=== PATIENT | female | born 1955 | race Caucasian/White ===

== ENCOUNTER → 2018-03-31 08:36 | Outpatient (CLI) | payer OTHER, SELFPAY ==
[2018-03-31 09:45] LABS: Hemoglobin A1c 5.8 % (4.2-6.3)
[2018-03-31 10:09] LABS: Alanine Aminotransfer ALT/SGPT 27 U/L (13-56); Anion Gap 5 (5-15); BUN 17 mg/dL (7-18); BUN/Creat Ratio 21.3 RATIO (10-20); Calcium,Total 8.3 mg/dL (8.5-10.1); Chloride 106 mmol/L (98-107); Cholesterol 166 mg/dL (200); EST Glomerular Filtration Rate 77 mL/min (>60); Est Glom Filt Rate - Afr Amer 94 mL/min (>60); Glucose 100 mg/dL (74-106); High Density Lipoprotein 51 mg/dL; Potassium 4.1 mmol/L (3.5-5.1); Sodium Level 138 mmol/L (136-145); Triglycerides 77 mg/dL; Very Low Density Lipoprotein 15 mg/dL (5-40)
== END ==
PROVIDERS: Family Provider Family Medicine; PCP Family Medicine; Referring Provider Family Medicine; Visit Provider Family Medicine
DX: Z00.00 Encounter for general adult medical examination without abnormal findings (principal)
CPT/HCPCS: 36415; 80048; 80061; 83036; 84443; 84460

== ENCOUNTER → 2018-07-09 07:00 | Outpatient (CLI) | payer OTHER, SELFPAY ==
--- NOTE | 2018-07-09 06:59 | BI_ITS ---
MAMMOGRAPHY - BILATERAL SCREENING REASON FOR EXAM: Female, 62 years old. Routine annual screening examination. PERTINENT HISTORY: Mother with breast cancer. Remote right stereotactic breast biopsy. TECHNIQUE: Digital bilateral breast mya (3D mammographic acquisition) in the CC and MLO projections. 2-D mediolateral oblique (MLO) and craniocaudad (CC) views of both breasts were obtained. CAD: Full Field Digital Mammography with Computer Added Detection was performed. COMPARISON: Comparison is made with prior study dated February 11, 2017 and December 23, 2014. FINDINGS: Breast Composition: There are scattered areas of fibroglandular density. There are no dominant masses or suspicious calcifications. No other significant abnormalities are identified. There has been no significant change since the prior study. BI/SCREENING MAMM (CAD), BILAT IMPRESSION: Stable bilateral screening mammogram. Yearly follow-up mammogram recommended. (A) ASSESSMENT CATEGORY: BIRADS Category 1: Negative. A letter regarding these results will be sent to the patient by the facility within 30 days. Approximately 10% of breast cancers are not detected by mammography. A normal mammogram should not delay biopsy of a clinically suspicious abnormality. [id number] Electronically Signed: Lauro Matt MD at 8:39 EST Tel [phone], Service support ,
--- OUTSIDE RECORDS SUMMARY | 2018-09-12 22:23 | XMS RPT_ITS ---
:1955 Author Organization [facility] Care Team Providers Name Role Phone Colby Mazariegos Attending Unavailable Colby Mazariegos Referring Unavailable Colby Mazariegos Primary Care Unavailable Colby Mazariegos Attending Unavailable Colby Mazariegos Referring Unavailable Yair Colby Primary Care Unavailable PROBLEMS PROBLEMS DATE TYPE CONDITION / CODE ATTENDING STATUS SOURCE 03/31/2018 Unknown Z00.00 - Colby Mazariegos Active [place] Encounter for [facility] medical Repository examination without abnormal findings / Z00.00(ICD-10) PROCEDURES PROCEDURES No Procedure Records FoundRESULTS RESULTS SCREENING MAMM (CAD), Observed: 07/09/2018 Status: F Source: [place] BILAT 6:59 AM [facility] REPOSITORY [facility] Imaging Services [address] [place] [address] SCREENING MAMM (CAD), BILAT MR#: [id number] Acct: [id number] Name: SRUTHI MCCORMACK Rep #: [id number] : 1955 F 62 From: Lauro Matt MD PCP: Colby Mazariegos MD Status: REG CLI Study: SCREENING MAMM (CAD), BILAT Date of Exam: 07/09/18 Exam# [id number] Ordering Dr: Colby Mazariegos MD MAMMOGRAPHY - BILATERAL SCREENING REASON FOR EXAM: Female, 62 years old. Routine annual screening examination. PERTINENT HISTORY: Mother with breast cancer. Remote right stereotactic breast biopsy. TECHNIQUE: Digital bilateral breast mya (3D mammographic acquisition) in the CC and MLO projections. 2-D mediolateral oblique (MLO) and craniocaudad (CC) views of both breasts were obtained. CAD: Full Field Digital Mammography with Computer Added Detection was performed. COMPARISON: Comparison is made with prior study dated February 11, 2017 and December 23, 2014. FINDINGS: Breast Composition: There are scattered areas of fibroglandular density. There are no dominant masses or suspicious calcifications. No other significant abnormalities are identified. There has been no significant change since the prior study. BI/SCREENING MAMM (CAD), BILAT IMPRESSION: Stable bilateral screening mammogram. Yearly follow-up mammogram recommended. (A) ASSESSMENT CATEGORY: BIRADS Category 1: Negative. A letter regarding these results will be sent to the patient by the facility within 30 days. Approximately 10% of breast cancers are not detected by mammography. A normal mammogram should not delay biopsy of a clinically suspicious abnormality. [id number] Electronically Signed: Lauro Matt MD at 8:39 EST Tel [phone], Service support , CC: Colby Mazariegos MD Torch Cutter: Signed HEMOGLOBIN A1C Collected: 03/31/2018 Status: F Source: [place] 8:43 AM [facility] REPOSITORY TYPE CODE TESTS RESULT OUT OF RANGE REFERENCE UNITS LAB L501.9985 4.2-6.3 % Normal HGB A1C 5.8 Performed By: #### L501.9985 #### [facility] [address] [place], [place], [address] BASIC METABOLIC Collected: 03/31/2018 Status: F Source: [place] PROFILE ([facility]) 8:43 AM [facility] REPOSITORY TYPE CODE TESTS RESULT OUT OF RANGE REFERENCE UNITS LAB L501.0100 74-106 mg/dL Normal GLU 100 Result Comment: Fasting Glucose result from 100 to 125 mg/dL suggests IMPAIRED HOMEOSTASIS per A.D.A. criteria. Please note revised GLUCOSE reference range effective 2017. LAB L501.1000 7-18 mg/dL Normal BUN 17 LAB L501.1100 0.55-1.02 mg/dL Normal CREAT,SERUM 0.80 Result Comment: The validity of the calculated GFR AND GFRAA in patients over 70 years has not been determined. Clinical correlation is essential. LAB L501.1110 >60 mL/min Normal EST GFR 77 Result Comment: Non- GFR Calc LAB L501.1115 >60 mL/min Normal EST GFR - AA 94 Result Comment: GFR Calc LAB L501.1300 10-20 RATIO High BUN/CRE 21.3 LAB L501.2200 8.5-10.1 mg/dL Low CA 8.3 LAB L501.5300 136-145 mmol/L NA Normal 138 LAB L501.5600 3.5-5.1 mmol/L K Normal 4.1 LAB L501.5900 98-107 mmol/L CL Normal 106 LAB L501.6100 21.0-32.0 mmol/L Normal CO2 27.0 LAB L501.6200 5-15 Normal GAP 5 Performed By: #### L500.2500, L500.4100, L501.4405, L501.9520 #### [facility] [address] [place], [place], [address] LIPID PROFILE Collected: 03/31/2018 Status: F Source: [place] 8:43 AM [facility] REPOSITORY TYPE CODE TESTS RESULT OUT OF RANGE REFERENCE UNITS LAB L501.4900 200 mg/dL Normal CHOL 166 Result Comment: <200 mg/dL Desirable 200-240 mg/dL Borderline >240 mg/dL High Risk LAB L501.5000 mg/dL Normal TRIG 77 Result Comment: The drugs N-Acetylcysteine and Metamizole may falsely depress this assay. Serum Triglycerides Reference Interval Normal <150 mg/dL Borderline high 150 - 199 mg/dL High 200 - 499 mg/dL Very High > or = 500 mg/dL LAB L501.6400 mg/dL Normal HDL 51 Result Comment: The drugs N-Acetylcysteine and Metamizole may falsely depress this assay. Reference Range HDL <40 mg/dL Low HDL Cholesterol HDL >or= 60 mg/dL High HDL Cholesterol LAB L501.6500 0-130 mg/dL Normal LDL 100 LAB L501.6600 5-40 mg/dL Normal VLDL 15 Performed By: #### L500.2500, L500.4100, L501.4405, L501.9520 #### [facility] [address] [facility] [place], [address] ALANINE AMINOTRANSFERAS Collected: 03/31/2018 Status: F Source: [place] ([facility]) 8:43 AM [facility] REPOSITORY TYPE CODE TESTS RESULT OUT OF RANGE REFERENCE UNITS LAB L501.4405 13-56 U/L Normal ALT 27 Performed By: #### L500.2500, L500.4100, L501.4405, L501.9520 #### [facility] [address] [place], [address] THYROID STIM HORMONE Collected: 03/31/2018 Status: F Source: [place] ([facility]) 8:43 AM [facility] REPOSITORY TYPE CODE TESTS RESULT OUT OF RANGE REFERENCE UNITS LAB L501.9520 0.358-3.74 uIU/mL Normal TSH 3.60 Performed By: #### L500.2500, L500.4100, L501.4405, L501.9520 #### [facility] [address] [place], [address] ALLERGIES ALLERGIES DATE TYPE / CODE NAME / CODE REACTION SEVERITY SOURCE 05/26/2014 Drug Sulfa Rash Unknown [facility] Allergy/4160 ([facility] 03401(SNOMED Antibiotics)/ Repository CT) [id number](RX NORM) ENCOUNTERS ENCOUNTERS ADMIT/DISCHARGE ACCOUNT ADMITTING ENCOUNTER LOCATION SOURCE NUMBER CLASS 07/09/2018 [id number] Ambulatory [place] 7 [facility] ing:OPBI Repository 03/31/2018 [id number] [place] [facility] ing:LAB Repository PAYERS PAYERS ENCOUNTER GUARANTOR PAYER SUBSCRIBER SOURCE 07/09/2018 MARIE R Primary SRUTHI J [place] [id number] Insurance:[facility]: [facility] [place]: [id number] [id number] Repository [address]Mau: [phone]) Date:[id number] [phone] () [address] [place] [id number]: 07/09/2018 Secondary NOT GIVENUNK [place] Insurance:SELF PAY [facility] Number: Effective Repository Date:2018-01-24 03/31/2018 MARIE Nelson Primary SRUTHI J [place] [id number] Insurance:[facility]: [facility] Number: [id number] [id number] Repository [address]Zvh: [phone]) Date:[id number] [phone] () [address] [place] [id number]: 03/31/2018 Secondary NOT GIVENUNK [place] Insurance:SELF PAY [facility] Number: Effective Repository Date:2018-03-31
== END ==
PROVIDERS: Family Provider Family Medicine; PCP Family Medicine; Referring Provider Family Medicine; Visit Provider Family Medicine
DX: Z12.31 Encounter for screening mammogram for malignant neoplasm of breast (principal)
CPT/HCPCS: 77063; 77067

== ENCOUNTER → 2018-10-16 15:50 | Outpatient (CLI) | payer OTHER, SELFPAY ==
--- NOTE | 2018-10-16 12:50 | LES_PTH ---
PATIENT: SRUTHI MCCORMACK LOC: [facility] U#:[id number] AGE/SX: 69/F ROOM: RE10/16/[address]: Dr. Burke Culp DDS : 1955 BED: DIS: SPEC #: [id number] RECD: 10/16/18 15:40 STATUS: MIN LUCIANO #: [id number] TERRIE: 10/16/18 12:[address]: Burke Culp DEPT: SURGICAL PATHOLOGY RECD BY: Adama Marcano ENTERED: 10/17/18 08:34 SP TYPE: Lesion OTHR DR: Dr. Colby Mazariegos MD Tissues: Skin of face, NOS Procedures: Surgery Specimen Level IV HEADER OPERATION: Biopsy buccal mucosa PRE-OP DIAGNOSIS: Probable fibroma TISSUE SUBMITTED: Biopsy buccal mucosa MICROSCOPIC DIAGNOSIS Buccal mucosa, biopsy: A piece of squamous mucosa with subepithelial fibrosis, consistent with irritation fibroma. Focal hyperkeratosis, parakeratosis and mild chronic inflammation. SJ:nicanor 10/20/18 MICROSCOPIC DESCRIPTION Slides are reviewed. GROSS DESCRIPTION Received in fixative is one container labeled with the patient's name and designated right cheek. The specimen consists of a round piece of griffith-white mucosa measuring 0.5 x 0.5 x 0.3 cm. The specimen is inked and submitted entirely in one cassette. It will be bisected at the time of embedding. / TONY:nicanor 10/17/18 TC:5 CPT: 90995
== END ==
PROVIDERS: Family Provider Family Medicine; PCP Family Medicine; Referring Provider Dentist Oral and Maxillofacial Surgery; Visit Provider Dentist Oral and Maxillofacial Surgery
DX: R23.4 Changes in skin texture (principal)
CPT/HCPCS: 88305

== ENCOUNTER → 2018-12-03 16:38 | Outpatient (CLI) | payer OTHER, SELFPAY ==
[2018-12-09 15:38] LABS: HPV Reflexed? NOT INDICATED
== END ==
PROVIDERS: Visit Provider Obstetrics & Gynecology
DX: Z12.4 Encounter for screening for malignant neoplasm of cervix (principal)
CPT/HCPCS: 88175; G0145

== ENCOUNTER → 2019-09-24 09:13 | Outpatient (CLI) | payer OTHER, SELFPAY ==
[2019-09-24 10:23] LABS: Cholesterol 200 mg/dL (200); Creatinine, Serum 0.78 mg/dL (0.55-1.02); EST Glomerular Filtration Rate 79 mL/min (>60); Est Glom Filt Rate - Afr Amer 96 mL/min (>60)
[2019-09-24 11:49] LABS: Microalbumin,Random Urine 21.2 mg/L (NO RANGE EST.); Microalbumin:Creatinine Ratio 10.8 mg/g CRE (<30 mg/g CRE)
== END ==
PROVIDERS: PCP Family Medicine; Referring Provider Family Medicine; Visit Provider Family Medicine
DX: I10 Essential (primary) hypertension (principal)
CPT/HCPCS: 36415; 82043; 82465; 82565; 82570

== ENCOUNTER → 2019-10-21 15:32 | Outpatient (CLI) | payer OTHER, SELFPAY ==
--- NOTE | 2019-10-21 | LES_PTH ---
PATIENT: SRUTHI MCCORMACK LOC: [facility] U#:[id number] AGE/SX: 69/F ROOM: RE10/21/[address]: Dr. Colby Mazariegos MD : 1955 BED: DIS: SPEC #: [id number] RECD: 10/21/19 15:16 STATUS: MIN LUCIAON #: [id number] TERRIE: 10/21/19 00:[address]: Colby Mazariegos DEPT: SURGICAL PATHOLOGY RECD BY: Junior Gonzalez Tissues: Skin of leg, NOS Procedures: Surgery Specimen Level IV HEADER OPERATION: Shave biopsy PRE-OP DIAGNOSIS: Irritated, raised growth TISSUE SUBMITTED: Left thigh atypical nevus MICROSCOPIC DIAGNOSIS Left thigh atypical nevus, shave biopsy: Verrucous keratosis with focal features of verruca vulgaris. Negative for malignancy. SJ:nicanor 10/23/19 COMMENT Clinical correlation and appropriate follow up are necessary. Case has been reviewed in consultation with Dr. Saravia who concurs with the above diagnosis. IDC:AM MICROSCOPIC DESCRIPTION Slides are reviewed. GROSS DESCRIPTION Received is one container labeled with the patient's name and not further designated. The specimen consists of a shave biopsy of griffith-white skin measuring 1 x 0.5 x 0.2 cm. The specimen is inked and submitted entirely in one cassette. It will be sectioned at the time of embedding. / SJ:rg 10/22/19 TC:5 CPT: 67167
== END ==
PROVIDERS: PCP Family Medicine; Referring Provider Family Medicine; Visit Provider Family Medicine
DX: L57.0 Actinic keratosis (principal); B07.8 Other viral warts
CPT/HCPCS: 88305

== ENCOUNTER → 2019-10-23 11:02 | Outpatient (CLI) | payer OTHER, SELFPAY ==
--- NOTE | 2019-10-23 11:11 | BI_ITS ---
MAMMOGRAPHY - BILATERAL SCREENING REASON FOR EXAM: Female, 64 years old. Routine annual screening examination. PERTINENT HISTORY: Mother with breast cancer. Remote right stereotactic breast biopsy. TECHNIQUE: Digital bilateral breast machelle (3D mammographic acquisition) in the CC and MLO projections. 2-D mediolateral oblique (MLO) and craniocaudad (CC) views of both breasts were obtained. CAD: Full Field Digital Mammography with Computer Added Detection was performed. COMPARISON: Comparison is made with prior study dated July 09, 2018 and February 11, 2017. FINDINGS: Breast Composition: There are scattered areas of fibroglandular density. There are no dominant masses or suspicious calcifications. No other significant abnormalities are identified. There has been no significant change since the prior study. BI/SCREEN MAMM (CAD) W/MACHELLE BILAT IMPRESSION: Stable bilateral screening mammogram. Yearly follow-up mammogram recommended. (A) ASSESSMENT CATEGORY: BIRADS Category 1: Negative. A letter regarding these results will be sent to the patient by the facility within 30 days. Approximately 10% of breast cancers are not detected by mammography. A normal mammogram should not delay biopsy of a clinically suspicious abnormality. [id number] Electronically Signed: Lauro Matt, at 12:10 EDT , Service support ,
== END ==
PROVIDERS: PCP Family Medicine; Referring Provider Family Medicine; Visit Provider Family Medicine
DX: Z12.31 Encounter for screening mammogram for malignant neoplasm of breast (principal)
CPT/HCPCS: 77063; 77067

== ENCOUNTER → 2021-03-13 09:01 | Outpatient (CLI) | payer MEDICARE, OTHER, SELFPAY | PROVIDERS: PCP Family Medicine; Referring Provider Family Medicine; Visit Provider Family Medicine | DX: U07.1 COVID-19 (principal) | CPT/HCPCS: 87635; U0005; U0003 ==

== ENCOUNTER 2021-03-17 11:26 | Outpatient (CLI) | payer MEDICARE, OTHER, SELFPAY ==
[2021-03-17] MEDS: 0.9% Saline Lock 10 ML Syringe IV (11:50)
[2021-03-17 12:05] VITALS: BP 144/74; PULSE 69; RESP 16; TEMP 36.8; O2SAT 99; BMI 34.9
[2021-03-17 12:35] VITALS: BP 150/64; PULSE 68; RESP 16; TEMP 36.6; O2SAT 100
[2021-03-17 13:35] VITALS: BP 164/65; PULSE 72; RESP 16; TEMP 36.7; O2SAT 100
== END 2021-03-17 13:40 | disposition home or self-care (01) ==
LOC: ICUOUT 11:27 → MS3 11:27
PROVIDERS: PCP Family Medicine; Referring Provider Nurse Practitioner Adult Health; Visit Provider Nurse Practitioner Adult Health
DX: Z23 Encounter for immunization (principal); U07.1 COVID-19
CPT/HCPCS: J7050; M0245; A4216; Q0244

== ENCOUNTER → 2021-03-30 09:09 | Outpatient (CLI) | payer MEDICARE, OTHER, SELFPAY | PROVIDERS: PCP Family Medicine; Referring Provider Family Medicine; Visit Provider Family Medicine | DX: J18.9 Pneumonia, unspecified organism (principal) | CPT/HCPCS: 87015; 87070; 87116; 87205; 87206 ==

== ENCOUNTER → 2021-05-01 12:59 | Outpatient (CLI) | payer MEDICARE, SELFPAY ==
--- NOTE | 2021-05-01 13:02 | BI_ITS ---
MAMMOGRAPHY - BILATERAL SCREENING REASON FOR EXAM: Female, 65 years old. Routine annual screening examination. PERTINENT HISTORY: Mother with breast cancer. Remote right stereotactic breast biopsy. TECHNIQUE: Digital bilateral breast mya (3D mammographic acquisition) in the CC and MLO projections. 2-D mediolateral oblique (MLO) and craniocaudad (CC) views of both breasts were obtained. CAD: Full Field Digital Mammography with Computer Added Detection was performed. COMPARISON: Comparison is made with prior study dated 10/23/2019 and 07/09/2018. FINDINGS: Breast Composition: The breasts are heterogeneously dense, which may obscure small masses. There are no dominant masses or suspicious calcifications. Stable benign-appearing bilateral axillary lymph nodes. No other significant abnormalities are identified. There has been no significant change since the prior study. BI/SCREENING MAMM (CAD), BILAT IMPRESSION: Stable bilateral screening mammogram. Yearly follow-up mammogram recommended. (A) ASSESSMENT CATEGORY: BIRADS Category 2: Benign. A letter regarding these results will be sent to the patient by the facility within 30 days. Approximately 10% of breast cancers are not detected by mammography. A normal mammogram should not delay biopsy of a clinically suspicious abnormality. [id number] Electronically Signed: Lauro Matt MD at 14:09 EST , Service support ,
== END ==
PROVIDERS: PCP Family Medicine; Referring Provider Family Medicine; Visit Provider Family Medicine
DX: Z12.31 Encounter for screening mammogram for malignant neoplasm of breast (principal)
CPT/HCPCS: 77067

== ENCOUNTER → 2021-12-12 | Outpatient (CLI) | payer MEDICARE, OTHER, SELFPAY ==
--- NOTE | 2021-12-12 10:22 | BD_ITS ---
STUDY: DUAL ENERGY X-RAY ABSORPTIOMETRY / DXA REASON FOR EXAM: Female, 66 years old. M810. Patient is postmenopausal. TECHNIQUE: Bone Mineral Density (BMD) measurements of lumbar spine and bilateral hips were obtained. COMPARISON: Comparison is made with prior study dated 02/07/2012. FINDINGS: Lumbar Spine (L1-L4): g/cm2 (0.959) / T-score (-0.8) / Z-score (1.1) Findings are suggestive of normal bone density with a low fracture risk. Left Femur Total: g/cm2 (1.013) / T-score (0.6) / Z-score (1.9) Left Femoral Neck: g/cm2 (0.733) / T-score (-1.0) / Z-score (0.5) Right Femur Total: g/cm2 (1.053) / T-score (0.9) / Z-score (2.2) Right Femoral Neck: g/cm2 (0.750) / T-score (-0.9) / Z-score (0.7) The T-Scores on the most recent prior examination were: Lumbar Spine (L1-L4): There has been worsening of bone density since the previous examination. Left Femur Total: which represents a worsening of 8.2%. Right Femur Total: which represents a worsening of 6.6%. BD/Dexa Bone Density Study IMPRESSION: The patient is considered normal as outlined below according to World Ka[employer] Organization (WHO) criteria with a low fracture risk. There has been worsening of bone density since the previous examination. Reference Information: The T-score is the number of standard deviations above or below the standard which is normal for young adults at their peak bone mineral density. The World Health Organization (WHO) interprets the T-scores as follows: Above -1 Normal bone density Between -1 and -2.5 Osteopenia Equal to / or below -2.5 Osteoporosis As a practical clinical guideline, osteopenia may be graded as follows: Mild -1 through -1.5 Moderate -1.6 through -2.0 Severe -2.1 through -2.4 The Z-score is the number of standard deviations above or below age-matched controls. A Z-score of less than -1.5 would be considered abnormal. References: 1. NIH Osteoporosis and Related Bone Diseases www osteo.org 2. International Society for Clinical Densitometry www iscd.org 3. National Osteoporosis Foundation www nof.org Electronically Signed: Lauro Matt MD at 12:51 EDT ,
== END | disposition home or self-care (01) ==
LOC: OPBD 10:16
PROVIDERS: PCP Family Medicine; Visit Provider Family Medicine
DX: M81.0 Age-related osteoporosis without current pathological fracture (principal)
CPT/HCPCS: 77080

== ENCOUNTER 2022-02-02 12:20 | Emergency (ER) | payer MEDICARE, OTHER, SELFPAY ==
[2022-02-02 12:21] VITALS: BP 100/79; PULSE 77; RESP 17; TEMP 36.8; O2SAT 99; BMI 36.6
--- NOTE | 2022-02-02 12:40 | RAD_ITS ---
HISTORY: FB in left index finger. TECHNIQUE: XR Hand Min 3 Views. COMPARISON: None. FINDINGS: BONES : Degenerative cysts of the carpus. JOINTS: No dislocation. Mild degenerative change. SOFT TISSUES: 1.3 cm long linear metallic foreign body within the second distal phalanx. Punctate metallic foreign body in the cortex of the distal phalanx also noted. Soft tissue swelling of the second finger RAD/Hand Min 3 Views IMPRESSION: 1.3 cm long and punctate metallic foreign bodies in the distal phalanx of the left second finger. Electronically Signed: Giana Pretty MD at 12:53 EDT ,
[2022-02-02] MEDS: Diphth,Pertuss(Acell),Tet Vac 0.5 ML Vial IM (12:46)
[2022-02-02] MEDS: Lidocaine 1% (20 ml mdv) 20 ML Vial INFILT (12:47)
--- NOTE | 2022-02-02 13:45 | EDS_ITS ---
HPI <ALVARO Barksdale - Last Filed: 02/02/22 13:56> History of Present Illness Chief Complaint: Upper Extremity Injury Narrative Narrative: 66-year-old female with history of hypertension presents to the emergency department with a sewing nail stuck into her left index finger. Patient was using a sewing machine, when she put her finger where it was not supposed to be, the sewing needle went in the dorsal aspect of the tip of the finger, coming out of the side. Patient states that the machine stopped, the tip that came out the other end did break off however she still has the base of the nail in her finger. She denies any other injury. Tetanus vaccination is not up-to-date. [facility] <ALVARO Barksdale - Last Filed: 02/02/22 13:56> [facility] Medical History (Updated 02/02/22 @ 13:54 by ALVARO Barksdale) HTN (hypertension) Home Medications amlodipine 5 mg tablet 5 mg PO DAILY 05/26/14 [History Last Taken 06/02/14 07:00] calcium carbonate 600 mg calcium (1,500 mg) tablet (Calcium) 600 mg PO DAILY 11/24/21 [History Last Taken Unknown] cholecalciferol (vitamin D3) 125 mcg (5,000 unit) capsule 125 mcg PO DAILY 11/24/21 [History Last Taken Unknown] multivitamin 1 tab PO DAILY 11/24/21 [History Last Taken Unknown] cephalexin 500 mg capsule 500 mg PO Q6 #12 caps 02/02/22 [Rx Last Taken Unknown] Allergy/AdvReac Type Severity Reaction Status Date / Time Sulfa (Sulfonamide Allergy Rash Verified 02/02/22 12:23 Antibiotics) Social History Smoking Status: Never smoker ROS <ALVARO Barksdale - Last Filed: 02/02/22 13:56> ROS ED ROS Narrative Constitutional: Negative for fever, chills, weight loss, weakness Eyes: Negative for vision loss, vision change, double vision ENT: Negative for any sore throat, ear pain, congestion Cardiovascular: Negative for any chest pain, tightness, palpitations Respiratory: Negative for any cough, sputum production, hemoptysis, dyspnea, dyspnea on exertion, orthopnea Gastrointestinal: Negative for any abdominal pain, nausea, vomiting, diarrhea, constipation, blood in stool, blood in vomit : Negative for any urinary frequency, dysuria, retention, blood in urine Muscle skeletal: Negative for any muscle joint pain, stiffness, myalgias, arthralgias, neck pain, back pain. Positive for left second digit pain Neurological: Negative for any headache, syncope, numbness or tingling, dizziness Skin: Negative for any rashes, lumps, itching, abrasions, lacerations Psychiatric: Negative for any depression, anxiety, stress, suicidal ideation, homicidal ideation Hematologic: Negative for any easy bruising, excessive bruising, easy bleeding Allergies: Negative for any eczema, hives, rash EXAM <ALVARO Barksdale - Last Filed: 02/02/22 13:56> Physical Exam Narrative Exam Narrative: Vital signs reviewed. Extremities: No peripheral edema, no signs of gross trauma or deformity. Active full range of motion of all extremities. Patient is full range of motion of left hand, patient does have a 1 cm laceration to the palmar aspect of the right index finger just above the DIP joint, patient still has the base of the sewing needle on the dorsal aspect above the DIP joint at the base of the nail. Significant pain on palpation. Nailbed is intact. Negative for any neurological focal deficit Neuro: Cranial nerves II through XII intact, no focal neurological deficits. Skin: Clean dry and intact with no rash, purpura, petechiae, vesicles or pustules. Backs/flank: No CVA tenderness, no midline spinal tenderness, no deformity. Psych: Normal mood and affect. No SI, HI or acute psychosis. Const Vital Signs: 02/02/22 12:21 Temperature 98.2 F Temperature Source Temporal Pulse Rate 77 Respiratory Rate 17 Blood Pressure 100/79 Blood Pressure Mean 86 Pulse Ox 99 Oxygen Delivery Method Room Air Positive well nourished and well developed General Appearance ED: well developed MDM <ALVARO Barksdale - Last Filed: 02/02/22 13:56> MDM Radiography Diagnostic Testing: Clinical Impression(s) from Imaging Studies Hand X-Ray 02/02/22 12:40 IMPRESSION: 1.3 cm long and punctate metallic foreign bodies in the distal phalanx of the left second finger. Electronically Signed: Giana Pretty MD at 12:53 EDT , Treatment and Re-Evaluation Narrative: Patient appears well, patient appears nontoxic, vital signs are stable. Patient presents to the emergency department with a sewing needle puncturing the left index finger. Patient did receive x-rays, there is a 1.3 cm long and punctate metallic foreign body in the distal phalanx of the left second finger. Patient's tetanus vaccination was up-to-date this visit. Patient's left index finger was anesthetized, I was able to place 2 simple interrupted sutures to the laceration, this area was aggressively cleansed. I was able to take hemostats and take out the 1.3 cm sewing needle without complication. Patient tolerated well. Patient replaced on a short course of Keflex secondary to the foreign body to the left hand. Patient will have her sutures removed in 10 days. Patient stable for discharge. <Dr. Levi Perez MD - Last Filed: 02/02/22 15:44> [facility] Narrative Medical decision making narrative: I have personally performed a face to face assessment of the patient and have reviewed the PETER Note. I performed a substantive portion of the visit including all aspects of the following. My landry findings include: History is consistent with a needle from a sewing machine going in her left index finger. No other injury. Nothing makes better or worse. Exam is consistent with puncture and slight tear of the skin which probably occurred when she pulled her hand away from this needle that was in the machine. You can see just the tip of it poking out of the skin. No limitation of range of motion. This is all near the nail and not near the joint. Medical Decison Making: X-rays were done that did verify the needle. Finger was anesthetized with digital block. The needle was easily removed. We are not 100% sure if this needle was in the bone or not. Although it came out easily it is also a polished needle that has a taper and would come out of bone easily also. We will place her on a short course of antibiotics. We discussed signs symptoms of infection and keeping this clean. We encouraged to return for wound check if there are any concerns. Procedures <ALVARO Barksdale - Last Filed: 02/02/22 13:56> Lacerations Left index finger laceration: Length: 1 cm Depth: Skin Shape: Linear Prep: Chad-Breann Laceration repair: Irrigated and Lidocaine Irrigated (ml): 200 Suture Information: Ethilon Comment: Sterile gloves, sterile drapes were used. Discharge Plan Triage Chief Complaint: Upper Extremity Injury ED Midlevel Provider: Lamonte Carreno ED Provider: Levi Perez Dx/Rx/DC Orders Clinical Impression: Foreign body in skin of finger of left hand, Laceration of left index finger Instructions: ED Foreign Body, Soft Tissue (Removed), ED Laceration Extremity Prescriptions: New cephalexin 500 mg capsule 500 mg PO Q6 Qty: 12 0RF No Action multivitamin Tablet 1 tab PO DAILY calcium carbonate [Calcium 600] 600 mg calcium (1,500 mg) tablet 600 mg PO DAILY cholecalciferol (vitamin D3) 125 mcg (5,000 unit) capsule 125 mcg PO DAILY amlodipine 5 MG tablet 5 mg PO DAILY Label Comments: HAS NOT BEEN USING DUE TO BP 123/78 Primary Care Provider: Colby Mazariegos Referrals: Colby Mazariegos MD [Primary Care Provider] - Activity Restrictions/Additional Instructions: Please have your sutures removed in 10 days. Keep the area clean and dry. Take 3 days of antibiotics. Your tetanus was up-to-date today Disposition Disposition: Home, Self Care Discharge Date/Time: 02/02/22 14:10
[2022-02-02] MEDS: HYDROcodone Bitartrate/Apap 5/325 Tablet PO (14:04)
[2022-02-02 14:05] VITALS: BP 124/78; PULSE 64; RESP 14; TEMP 37.2; O2SAT 99
== END 2022-02-02 14:10 | disposition home or self-care (01) ==
PROVIDERS: Emergency Provider Emergency Medicine; PCP Family Medicine; Visit Provider Emergency Medicine
DX: S60.451A Superficial foreign body of left index finger, initial encounter (principal); S61.211A Laceration without foreign body of left index finger without damage to nail, initial encounter; I10 Essential (primary) hypertension; Y33.XXXA Other specified events, undetermined intent, initial encounter; Z23 Encounter for immunization
CPT/HCPCS: 12001; 73130; 90471; 90715; 99283; J7030

== ENCOUNTER → 2022-05-10 | Outpatient (CLI) | payer MEDICARE, OTHER, SELFPAY ==
[2022-05-10 08:46] LABS: Absolute Lymphocyte Count 2.12 X10^3/uL (0.83-4.51); Absolute Neutrophil Count 13.7 X10^3/uL (2.0-7.7); Basophil# 0.04 X10^3/uL; Basophil% 0.2 % (0-1); Eosinophil# 0.21 X10^3/uL; Eosinophils% 1.2 % (0-5); Hematocrit 37.7 % (37-47); Hemoglobin 12.7 g/dL (12.0-15.0); Lymphocyte # 2.12 X10^3/ul (0.83-4.51); Lymphocyte % 12.3 % (19-41); Mean Corp Hgb Conc 33.7 g/dL (32-36); Mean Corpuscular Hgb 30.6 pg (27.0-32.0); Mean Corpuscular Volume 90.8 fL (81-99); Mean Platelet Vol. 10.1 fl (6.2-12.0); Monocyte# 1.04 X10^3/uL; Monocyte% 6.1 % (0-10); NRBC Flagged by Analyzer 0 % (0-5); Neutrophil # 13.67 X10^3/uL (2.7-7.7); Neutrophil % 79.7 % (47-70); Platelet Count 308 K/mm3 (150-450); RBC Distribution Width CV 13.3 % (11.6-14.6); Red Blood Count 4.15 M/mm3 (4.2-5.4); White Blood Count 17.2 K/mm3 (4.4-11.0)
[2022-05-10 09:07] LABS: Microalbumin,Random Urine 6.4 mg/L (NO RANGE EST.); Microalbumin:Creatinine Ratio 3.6 mg/g CRE (<30 mg/g CRE)
[2022-05-10 09:35] LABS: ALB/GLOB Ratio 0.7 RATIO (0.9-2.4); AST(SGOT) 16 U/L (15-37); Alanine Aminotransfer ALT/SGPT 30 U/L (13-56); Albumin, Serum 2.8 g/dL (3.2-5.0); Alkaline Phosphatase 75 U/L (45-117); Anion Gap 6 (5-15); BUN 10 mg/dL (7-18); BUN/Creat Ratio 14.6 RATIO (10-20); Calcium,Total 8.6 mg/dL (8.5-10.1); Chloride 102 mmol/L (98-107); Creatinine, Serum 0.68 mg/dL (0.55-1.02); EST Glomerular Filtration Rate 91 mL/min (>60); Est Glom Filt Rate - Afr Amer 111 mL/min (>60); Globulin 3.8 g/dL (2.2-4.2); Glucose 112 mg/dL (74-106); Potassium 4.2 mmol/L (3.5-5.1); Protein, Total 6.6 g/dL (6.4-8.2); Sodium Level 137 mmol/L (136-145); Thyroid Stim Hormone (TSH) 4.71 uIU/mL (0.358-3.74)
== END | disposition home or self-care (01) ==
LOC: LAB 08:14
PROVIDERS: PCP Family Medicine; Referring Provider Family Medicine; Visit Provider Family Medicine
DX: I10 Essential (primary) hypertension (principal); R68.3 Clubbing of fingers
CPT/HCPCS: 36415; 80053; 82043; 82570; 84443; 85025

== ENCOUNTER → 2022-08-10 | Outpatient (CLI) | payer MEDICARE, OTHER, SELFPAY ==
[2022-08-10 09:42] LABS: Absolute Lymphocyte Count 2.09 X10^3/uL (0.83-4.51); Absolute Neutrophil Count 3.9 X10^3/uL (2.0-7.7); Basophil# 0.05 X10^3/uL; Basophil% 0.7 % (0-1); Eosinophil# 0.16 X10^3/uL; Eosinophils% 2.3 % (0-5); Hematocrit 38.8 % (37-47); Hemoglobin 13.3 g/dL (12.0-15.0); Lymphocyte # 2.09 X10^3/ul (0.83-4.51); Lymphocyte % 30.5 % (19-41); Mean Corp Hgb Conc 34.3 g/dL (32-36); Mean Corpuscular Hgb 30.5 pg (27.0-32.0); Mean Platelet Vol. 11.8 fl (6.2-12.0); Monocyte# 0.63 X10^3/uL; Monocyte% 9.2 % (0-10); NRBC Flagged by Analyzer 0 % (0-5); Platelet Count 259 K/mm3 (150-450); RBC Distribution Width CV 12.6 % (11.6-14.6); RBC Distribution Width SD 41.4 fl (35.1-43.9); Red Blood Count 4.36 M/mm3 (4.2-5.4); White Blood Count 6.9 K/mm3 (4.4-11.0)
[2022-08-10 10:01] LABS: Microalbumin,Random Urine 29.1 mg/L (NO RANGE EST.); Microalbumin:Creatinine Ratio 16.5 mg/g CRE (<30 mg/g CRE)
[2022-08-10 10:07] LABS: Prothrombin Time (Protime)PT. 13.2 SECONDS (11.7-14.9)
[2022-08-10 10:08] LABS: Vitamin D,25 Hydroxy 48.6 ng/mL
[2022-08-10 10:24] LABS: ALB/GLOB Ratio 0.9 RATIO (0.9-2.4); AST(SGOT) 20 U/L (15-37); Alanine Aminotransfer ALT/SGPT 24 U/L (13-56); Albumin, Serum 3.5 g/dL (3.2-5.0); Alkaline Phosphatase 85 U/L (45-117); Anion Gap 7 (5-15); BUN 12 mg/dL (7-18); BUN/Creat Ratio 16.6 RATIO (10-20); CRP 7.89 mg/L (0.0-3.0); Calcium,Total 9.1 mg/dL (8.5-10.1); Chloride 107 mmol/L (98-107); Creatinine, Serum 0.72 mg/dL (0.55-1.02); EST Glomerular Filtration Rate 86 mL/min (>60); Est Glom Filt Rate - Afr Amer 103 mL/min (>60); Free T3 2.7 pg/mL (2.18-3.98); GGTP 31 U/L (5-55); Globulin 3.9 g/dL (2.2-4.2); Glucose 104 mg/dL (74-106); Potassium 3.8 mmol/L (3.5-5.1); Protein, Total 7.4 g/dL (6.4-8.2); Sodium Level 140 mmol/L (136-145); Thyroid Stim Hormone (TSH) 4.46 uIU/mL (0.358-3.74)
== END | disposition home or self-care (01) ==
PROVIDERS: PCP Family Medicine; Referring Provider Family Medicine; Visit Provider Family Medicine
DX: I10 Essential (primary) hypertension (principal); R77.0 Abnormality of albumin; R79.89 Other specified abnormal findings of blood chemistry; M81.0 Age-related osteoporosis without current pathological fracture; J20.9 Acute bronchitis, unspecified
CPT/HCPCS: 80053; 82043; 82306; 82570; 82977; 84439; 84443; 84481; 85025; 85610; 86140

== ENCOUNTER → 2022-08-21 | Outpatient (CLI) | payer MEDICARE, OTHER, SELFPAY ==
--- NOTE | 2022-08-21 12:00 | BI_ITS ---
MAMMOGRAPHY - BILATERAL SCREENING REASON FOR EXAM: Female, 67 years old. Routine annual screening examination. PERTINENT HISTORY: Mother with breast cancer. Prior right stereotactic breast biopsy. TECHNIQUE: Digital bilateral breast machelle (3D mammographic acquisition) in the CC and MLO projections. 2-D mediolateral oblique (MLO) and craniocaudad (CC) views of both breasts were obtained. CAD: Full Field Digital Mammography with Computer Added Detection was performed. COMPARISON: Comparison is made with prior study dated 05/01/2021 and 10/23/2019. FINDINGS: Breast Composition: The breasts are heterogeneously dense, which may obscure small masses. There are no dominant masses or suspicious calcifications. No other significant abnormalities are identified. There has been no significant change since the prior study. BI/SCRN MAMM (CAD)W/MACHELLE BILAT IMPRESSION: Stable bilateral screening mammogram. Yearly follow-up mammogram recommended. (A) ASSESSMENT CATEGORY: BIRADS Category 1: Negative. A letter regarding these results will be sent to the patient by the facility within 30 days. Approximately 10% of breast cancers are not detected by mammography. A normal mammogram should not delay biopsy of a clinically suspicious abnormality. [id number] Electronically Signed: Lauro Matt MD at 14:05 EST ,
== END | disposition home or self-care (01) ==
LOC: OPBI 11:59
PROVIDERS: PCP Family Medicine; Visit Provider Family Medicine
DX: Z12.31 Encounter for screening mammogram for malignant neoplasm of breast (principal)
CPT/HCPCS: 77063; 77067

== ENCOUNTER → 2023-01-31 | Outpatient (CLI) | payer MEDICARE, OTHER, SELFPAY ==
[2023-01-31 08:23] LABS: Absolute Lymphocyte Count 2.07 X10^3/uL (0.83-4.51); Absolute Neutrophil Count 2.7 X10^3/uL (2.0-7.7); Basophil# 0.03 X10^3/uL; Basophil% 0.5 % (0-1); Eosinophil# 0.21 X10^3/uL; Eosinophils% 3.7 % (0-5); Hematocrit 42.3 % (37-47); Hemoglobin 13.7 g/dL (12.0-15.0); Lymphocyte # 2.07 X10^3/ul (0.83-4.51); Lymphocyte % 36.9 % (19-41); Mean Corp Hgb Conc 32.4 g/dL (32-36); Mean Corpuscular Hgb 29.5 pg (27.0-32.0); Monocyte# 0.56 X10^3/uL; NRBC Flagged by Analyzer 0 % (0-5); Neutrophil # 2.72 X10^3/uL (2.7-7.7); Neutrophil % 48.5 % (47-70); Platelet Count 257 K/mm3 (150-450); RBC Distribution Width CV 12.8 % (11.6-14.6); RBC Distribution Width SD 42.3 fl (35.1-43.9); Red Blood Count 4.65 M/mm3 (4.2-5.4); White Blood Count 5.6 K/mm3 (4.4-11.0)
[2023-01-31 09:05] LABS: ALB/GLOB Ratio 0.8 RATIO (0.9-2.4); AST(SGOT) 17 U/L (15-37); Alanine Aminotransfer ALT/SGPT 28 U/L (13-56); Albumin, Serum 3.3 g/dL (3.2-5.0); Alkaline Phosphatase 85 U/L (45-117); Anion Gap 4 (5-15); BUN 10 mg/dL (7-18); BUN/Creat Ratio 11.3 RATIO (10-20); Calcium,Total 8.6 mg/dL (8.5-10.1); Chloride 107 mmol/L (98-107); Cholesterol 175 mg/dL (200); Creatinine, Serum 0.88 mg/dL (0.55-1.02); EST Glomerular Filtration Rate 68 mL/min (>60); Est Glom Filt Rate - Afr Amer 82 mL/min (>60); Free T3 2.5 pg/mL (2.18-3.98); Globulin 3.9 g/dL (2.2-4.2); Glucose 106 mg/dL (74-106); High Density Lipoprotein 62 mg/dL; Potassium 4.3 mmol/L (3.5-5.1); Protein, Total 7.2 g/dL (6.4-8.2); Sodium Level 139 mmol/L (136-145); T4 Free Direct 0.93 ng/dL (0.76-1.46); Thyroid Stim Hormone (TSH) 5.47 uIU/mL (0.358-3.74); Triglycerides 85 mg/dL; Very Low Density Lipoprotein 17 mg/dL (5-40)
== END | disposition home or self-care (01) ==
PROVIDERS: PCP Family Medicine; Referring Provider Family Medicine; Visit Provider Family Medicine
DX: I10 Essential (primary) hypertension (principal); R79.89 Other specified abnormal findings of blood chemistry; M81.0 Age-related osteoporosis without current pathological fracture
CPT/HCPCS: 36415; 80053; 80061; 84439; 84443; 84481; 85025

== ENCOUNTER → 2023-05-29 | Outpatient (CLI) | payer MEDICARE, OTHER, SELFPAY ==
--- NOTE | 2023-05-29 10:48 | RAD_ITS ---
INDICATION: LEG PAIN EXAMINATION/TECHNIQUE: X-RAY - XR Hip Unilateral with Pelvis when performed; 3 Views COMPARISON: FINDINGS: PELVIC BONES: No displaced fracture, destructive or sclerotic lesions. Note that overlapping bowel shadows may however obscure fine detail. Sacroiliac joints are unremarkable. No widening of the pubic symphysis. HIPS: The articular structures are unremarkable. No displaced fracture seen in this frontal view. SOFT TISSUES: No soft tissue swelling or gas. RAD/HIP, UNI W/ Pelvis 2-3 Views IMPRESSION: No evidence of displaced pelvic or hip fracture. Electronically Signed: Zackary Ro DO at 17:37 EST Reading Location ID and State: [facility] / [place] Tel [phone], Service support ,
--- NOTE | 2023-05-29 10:48 | RAD_ITS ---
STUDY: X-RAY - sacroiliac joints REASON FOR EXAM: Female, 67 years old. left leg pain TECHNIQUE: 3 view(s) of the sacroiliac joints. COMPARISON: FINDINGS: Normal alignment of the sacroiliac joints. No acute bony injury . The soft tissue structures are unremarkable. RAD/S-I Jts 3 or More Views IMPRESSION: Normal x-ray examination of the sacroiliac joints. Electronically Signed: Zackary Ro DO at 18:27 EST ,
[2023-05-29 12:34] LABS: Microalbumin,Random Urine 19.9 mg/L (NO RANGE EST.); Microalbumin:Creatinine Ratio 4.9 mg/g CRE (<30 mg/g CRE)
[2023-05-29 13:11] LABS: Anion Gap 7 (5-15); BUN 14 mg/dL (7-18); BUN/Creat Ratio 16.2 RATIO (10-20); Calcium,Total 8.7 mg/dL (8.5-10.1); Chloride 109 mmol/L (98-107); Creatinine, Serum 0.86 mg/dL (0.55-1.02); EST Glomerular Filtration Rate 69 mL/min (>60); Est Glom Filt Rate - Afr Amer 84 mL/min (>60); Free T3 2.5 pg/mL (2.18-3.98); Glucose 111 mg/dL (74-106); Potassium 3.6 mmol/L (3.5-5.1); Sodium Level 139 mmol/L (136-145); Thyroid Stim Hormone (TSH) 2.84 uIU/mL (0.358-3.74)
== END | disposition home or self-care (01) ==
LOC: MTLAB 10:46
PROVIDERS: PCP Family Medicine; Referring Provider Family Medicine; Visit Provider Family Medicine
DX: M79.605 Pain in left leg (principal); E03.8 Other specified hypothyroidism; I10 Essential (primary) hypertension
CPT/HCPCS: 36415; 72202; 73502; 80048; 82043; 82570; 84439; 84443; 84481

== ENCOUNTER 2023-07-04 11:29 | Emergency (ER) | payer MEDICARE, OTHER, SELFPAY ==
[2023-07-04 11:31] VITALS: BP 95/48; PULSE 71; RESP 16; TEMP 36.1; O2SAT 96; BMI 36.2
--- NOTE | 2023-07-04 13:13 | EKG12_ITS ---
Test Reason : CP Blood Pressure : / mmHG Vent. Rate : 064 BPM Atrial Rate : 064 BPM P-R Int : 174 ms QRS Dur : 082 ms QT Int : 406 ms P-R-T Axes : 046 037 063 degrees QTc Int : 418 ms Normal sinus rhythm Normal ECG Confirmed by JORDIN YUEN, BRIDGETTE ([id number]), multimedia editor JALEN TEJADA ([id number]) on 07/05/2023 7:21:19 AM Referred By: Confirmed By:BRIDGETTE BRENNER MD
--- NOTE | 2023-07-04 13:39 | RAD_ITS ---
STUDY: X-RAY CHEST REASON FOR EXAM: Female, 67 years old. Chest pain TECHNIQUE: Single AP portable view of the chest. COMPARISON: None. FINDINGS: Scattered calcified granulomas. No acute abnormality is seen. There is no demonstrated pleural abnormality. Normal size heart. Normal mediastinum and damien. Normal visualized pulmonary arteries. There is atherosclerotic tortuosity of the aortic arch and descending thoracic aorta. There are diffuse degenerative changes of the visualized thoracic spine. Normal visualized ribs, clavicles, and shoulders. There is no demonstrated abnormality of the visualized soft tissue structures of the upper abdomen. RAD/Chest 1 View (Portable) IMPRESSION: Calcified granulomas. No acute abnormality is seen. Electronically Signed: Lauro Matt MD at 13:49 EST ,
[2023-07-04 13:49] LABS: Absolute Lymphocyte Count 0.87 X10^3/uL (0.83-4.51); Absolute Neutrophil Count 4.8 X10^3/uL (2.0-7.7); Basophil# 0.03 X10^3/uL; Basophil% 0.5 % (0-1); Eosinophil# 0.08 X10^3/uL; Eosinophils% 1.2 % (0-5); Hematocrit 39.8 % (37-47); Hemoglobin 13.5 g/dL (12.0-15.0); Lymphocyte # 0.87 X10^3/ul (0.83-4.51); Lymphocyte % 13.3 % (19-41); Mean Corp Hgb Conc 33.9 g/dL (32-36); Mean Corpuscular Hgb 29.7 pg (27.0-32.0); Mean Corpuscular Volume 87.5 fL (81-99); Mean Platelet Vol. 10.8 fl (6.2-12.0); Monocyte% 12.2 % (0-10); NRBC Flagged by Analyzer 0 % (0-5); Neutrophil # 4.76 X10^3/uL (2.7-7.7); Neutrophil % 72.5 % (47-70); Platelet Count 235 K/mm3 (150-450); RBC Distribution Width CV 12.5 % (11.6-14.6); RBC Distribution Width SD 39.9 fl (35.1-43.9); Red Blood Count 4.55 M/mm3 (4.2-5.4); White Blood Count 6.6 K/mm3 (4.4-11.0)
[2023-07-04 14:02] LABS: Anion Gap 10 (5-15); BUN 13 mg/dL (7-18); BUN/Creat Ratio 16.9 RATIO (10-20); Calcium,Total 9.3 mg/dL (8.5-10.1); Chloride 101 mmol/L (98-107); Creatinine, Serum 0.77 mg/dL (0.55-1.02); EST Glomerular Filtration Rate 80 mL/min (>60); Est Glom Filt Rate - Afr Amer 96 mL/min (>60); Estimated Creatinine Clearance 68.42 ml/min; Glucose 103 mg/dL (74-106); Potassium 3.6 mmol/L (3.5-5.1); Sodium Level 134 mmol/L (136-145); Troponin-I HS (w/2H Reflex) 7 pg/mL (3.0-54.0)
[2023-07-04 14:15] VITALS: BP 155/71; PULSE 69; RESP 18; O2SAT 99
--- OUTSIDE RECORDS SUMMARY | 2023-07-04 14:25 | XMS RPT_ITS | CCD ---
Author Name Unknown Address [address] [place] [address] Organization [facility] Care Team Providers [address] Office Assistant Name Role Phone Alyson López Unavailable [phone] Allergies Allergy Classification Reported Allergen(s) Allergy Type Date of Onset Reaction(s) Facility (1 source) Sulfonamides (Antibiotic) drug allergy 4 [facility] Work Phone: Medications Completed/Discontinued Medications Medication Drug Class(es) Dates Sig (Normalized) Sig (Original) amLODIPine 5 mg oral tablet (1 source) Dihydropyridine Calcium Channel Cris Start: 02-22-2017 NORVASC 5 MG TABS AMLODIPINE BESYLATE [id number] Alyson López calcium (1 source) Phosphate Binder, Calcium Start: 02-22-2017 CALCIUM 500 + D TABS CALCIUM CARBONATE-VITAMIN D TABS [id number] Alyson López coenzyme q10 100 mg oral wafer (1 source) Start: 02-22-2017 COQ10 100 MG CAPS COENZYME Q10 [id number] Alyson López Problems Active Problems Problem Classification Problem Date Documented Date Episodic/Chronic Osteoarthritis (1 source) Osteoarthritis of knee; Translations: [Osteoarthritis of knee, unspecified] Onset: 02-22-2017 02-22-2017 Chronic Past or Other Problems Problem Classification Problem Date Documented Da te Episodic/Chronic Joint disorders and dislocations; trauma-related (1 source) Tear of medial meniscus of knee; Translations: [Other tear of medial meniscus, current injury, right knee] Onset: 05-04-2014 05-04-2014 Episodic Other non-traumatic joint disorders (2 sources) Knee joint effusion; Translations: [Knee pain] Onset: 05-04-2014 05-04-2014 Episodic Results Test Name Value Interpretation Reference Range Facil ity Vital Signs Date Time Vital Sign Value Performing Clinician Facility 05-18-2014 08:20-0500 BMI (Body Mass Index) 32.06 kg/m2 [facility] Work Phone: 05-18-2014 08:20-0500 Weight 82.1 kg [facility] Work Phone: 05-04-2014 09:49-0500 BP Diastolic 80 mm[Hg] [facility] Work Phone: 05-04-2014 09:49-0500 BP Systolic 125 mm[Hg] [facility] Work Phone: 05-04-2014 09:49-0500 Height 160.02 cm [facility] Work Phone: 05-04-2014 09:49-0500 Pulse (Heart Rate) 70 /min [facility] Work Phone: Procedures Date Procedure Procedure Detail Performing Clinician Start: 05-04-2014 End: 05-26-2014 *CBC with Differential Alyson aguirre Work Phone: Start: 05-04-2014 End: 05-04-2014 Drain/inject, joint/bursa Alyson huffman Work Phone: Plan of Treatment Date Care Activity Detail Author Start: 02-22-2017 End: 02-22-2017 Appointment Appointment [facility] Work Phone: Start: 02-22-2017 End: 02-22-2017 X-ray exam, knee, 4 or more X-Ray, Knee [facility] Work Phone: Start: 08-24-2014 End: 08-24-2014 X-ray exam, knee, 4 or more X-Ray, Knee [facility] Work Phone: Start: 05-04-2014 End: 05-26-2014 *CBC with Differential *CBC with Differential [facility] Work Phone: Start: 05-04-2014 End: 05-04-2014 Bacteria identified in Body fluid by Culture *CUBF- Culture, Body Fluid [facility] Work Phone: Start: 05-04-2014 End: 05-04-2014 Crystals [type] in Body fluid by Light microscopy *DAV - Crystals, Body Fluid [facility] Work Phone: Start: 05-04-2014 End: 05-04-2014 Glucose *GLUBF - Glucose, Body Fluid [facility] Work Phone: Start: 05-04-2014 End: 05-04-2014 Microscopic observation *GS - Gram Stain [facility] Work Phone: Start: 05-04-2014 End: 05-04-2014 Mri jnt of lwr extre w/o dye MRI Joint Lower Extremity [facility] Work Phone: Start: 05-04-2014 End: 05-04-2014 Protein in fluid *PROBF - Protein, Body Fluid [facility] Work Phone: Start: 05-04-2014 End: 05-04-2014 X-ray exam, knee, 4 or more X-Ray, Knee [facility] Work Phone: Additional Source Comments FOR RECORDS PERTAINING TO PATIENTS WHO ARE OR HAVE BEEN ENROLLED IN A CHEMICAL DEPENDENCY/SUBSTANCEABUSE PROGRAM, SOME INFORMATION MAY BE OMITTED. This clinical summary was aggregated from multiple sources. Caution should be exercised in using it in the provision of clinical care. This summary normalizes information from multiple sources, and as a consequence, information in this document may materially change the coding, format and clinical context of patient data. In addition, data may be omitted in some cases. CLINICAL DECISIONS SHOULD BE BASED ON THE PRIMARY CLINICAL RECORDS. [employer] provides no warranty or guarantee of the accuracy or completeness of information in this document.
--- NOTE | 2023-07-04 14:45 | ED.VIS.CHEST ---
HPI History of Present Illness Chief Complaint: Chest Pain Detail of Chief Complaint: Sternal chest discomfort after drinking soda Informant: patient Onset/Context/Timing Onset: Hours Activity at onset: sudden Timing: Intermittent Quality: Positive for Pressure (Ball-like sensation mid sternum) Location: Substernal Current Severity: Gone (Resolved after burping) Maximum Severity: Moderate Worsened By: - (After drinking carbonated beverage) Relieved By: - (Belching) Associated Symptoms: Negative for Nausea, Vomiting, Diaphoresis, Dyspnea, Cough, Fever, Lightheadedness, Acid Reflux or Palpitations Narrative Narrative: Patient is a 67-year-old woman with history of hypertension who presents with midsternal pressure bubble sensation. This occurred at rest. Patient states in route she belched and the pain resolved. There is no radiation. There is no associated symptoms. Furthermore, there was no radiation of the discomfort. Patient denies history of GERD or hiatal hernia. She is status postcholecystectomy. She denies intolerance to any foods. She denies black or maroon-colored stool. She has no infectious symptoms. She presently has no pain. She has not had any recent viral-like symptoms. She specifically denied vomiting or diarrhea. Prior Similar Symptoms: No Recent Illness/Hospitalization: No CVD Risk Factors: Positive for Hypertension; Negative for Diabetes, Hypercholesterolemia, Family History 1' </=55 or Smoking PE Risk Factors: Negative for Recent Travel/Surgery, Recent Immobilization, Prior DVT or PE, Cancer or OCP + Smoking + >/=35 TAD Risk Factors: Positive for Hypertension; Negative for Marfan's Syndrome or Family History [facility] Medical History HTN (hypertension) Home Medications amlodipine 5 mg tablet 5 mg PO DAILY 05/26/14 [History Last Taken 06/02/14 07:00] calcium carbonate 600 mg calcium (1,500 mg) tablet (Calcium) 600 mg PO DAILY 11/24/21 [History Last Taken Unknown] cholecalciferol (vitamin D3) 125 mcg (5,000 unit) capsule 125 mcg PO DAILY 11/24/21 [History Last Taken Unknown] multivitamin 1 tab PO DAILY 11/24/21 [History Last Taken Unknown] cephalexin 500 mg capsule 500 mg PO Q6 #12 caps 02/02/22 [Rx Last Taken Unknown] Allergy/AdvReac Type Severity Reaction Status Date / Time Sulfa (Sulfonamide Allergy Rash Verified 07/04/23 11:34 Antibiotics) Social History (Updated 07/04/23 @ 14:[address] Troy Botello MD) household members: spouse and family Smoking Status: Never smoker ROS ROS ED Constitutional Constitutional ED: Denies chills, fever(s) or subjective Eyes Eyes: Reports none ENT ENT ED: Denies rhinorrhea or sore throat Cardiovascular Cardiovascular: Reports as per HPI; Denies orthopnea or paroxysmal nocturnal dyspnea Respiratory/Chest Respiratory/Chest: Denies cough, dyspnea, dyspnea on exertion, orthopnea or paroxysmal nocturnal dyspnea Gastrointestinal Gastrointestinal: Denies abdominal pain, diarrhea or vomiting Musculoskeletal Musculoskeletal: Denies arthralgias, back pain, myalgias or neck pain Integumentary Denies rash Neurologic Neurologic: Denies weakness Hematologic/Lymphatic Hematologic/Lymphatic: Denies easy bleeding or easy bruising EXAM Physical Exam Narrative Exam Narrative: Blood pressure reading was initially low. She was not tachycardic, however. Const Vital Signs: 07/04/23 11:31 07/04/23 11:31 07/04/23 14:15 Temperature 97.0 F L Temperature Source Temporal Pulse Rate 71 Respiratory Rate 16 Blood Pressure 95/48 L Blood Pressure Mean 63 Pulse Ox 96 Oxygen Delivery Method Room Air Room Air 07/04/23 14:15 Temperature Temperature Source Pulse Rate 69 Respiratory Rate 18 Blood Pressure 155/71 H Blood Pressure Mean 99 Pulse Ox 99 Oxygen Delivery Method Positive well nourished, well developed and obese General Appearance ED: well developed and NAD; Negative for pallor Nutritional Appearance: obese HEENT Reports moist mucous membranes normocephalic and atraumatic Eyes PERRL and EOMs intact bilaterally General Eye ED: Negative for pale conjunctiva or scleral icterus Chest Wall inspection of chest normal and palpation of chest normal Resp normal respiratory effort and clear to auscultation bilaterally Cardio regular rate, regular rhythm, S1 normal heart sound, S2 normal heart sound and no murmurs GI normal to inspection, nondistended, normoactive bowel sounds, soft to palpation, non-tender, non-distended and no masses; Negative for hepatosplenomegaly Back/Spine Back/Spine Narrative: Flexion of the back is normal. There is no tenderness to palpation. Extremity normal to inspection Extremity Narrative: There is no asymmetry, swelling, discoloration, leg vein distention, palpable cords or tenderness along the distribution of the deep venous system. Neuro oriented x3 and CN's II-XII intact bilaterally Sensorium / Orientation: awake and alert Psych mental status grossly normal Skin no rashes or lesions noted and no wounds General Skin Exam: Negative for jaundice or pallor Heart Score History: Slightly/Non-Suspicious ECG: Normal Age: >/= 65 years Risk Factors: 1 or 2 Risk Factors Troponin: </= Normal Limit Score: 3 MDM MDM MDM Narrative Medical decision making narrative: With atypical chest pain. Suspect this is GI in etiology. EKG and blood work was initiated by nurse per nurse protocol. Lab Data Attestation: I reviewed the patient's lab results. Lab results narrative: BC is normal. BMP is normal. Troponin is normal. Labs: Laboratory Results - last 24 hr 07/04/23 13:35 WBC 6.6 RBC 4.55 Hgb 13.5 Hct 39.8 MCV 87.5 MCH 29.7 MCHC 33.9 RDW Std Deviation 39.9 RDW Coeff of Alfreda 12.5 Plt Count 235 MPV 10.8 Immature Gran % (Auto) 0.300 Neut % (Auto) 72.5 H Lymph % (Auto) 13.3 L Montgomery % (Auto) 12.2 H Eos % (Auto) 1.2 Baso % (Auto) 0.5 Absolute Neuts (auto) 4.8 Absolute Lymphs (auto) 0.87 Nucleated RBC % 0 Sodium 134 L Potassium 3.6 Chloride 101 Carbon Dioxide 23.0 Anion Gap 10 BUN 13 Creatinine 0.77 Estim Creat Clear Calc 68.42 Est GFR (MDRD) Af Amer 96 Est GFR (MDRD) Non-Af 80 BUN/Creatinine Ratio 16.9 Glucose 103 Calcium 9.3 Troponin I High Sens 7 Radiography Chest X-Ray - ED: 1 View and Read by ED Physician (Chest x-ray reveals granulomatous disease in the perihilar region. Cardiac silhouette size is normal. Lung parenchyma is unremarkable. Osseous structures are unremarkable. There are no acute findings per my independent review of the chest x-ray/interpretation) Diagnostic Testing: Clinical Impression(s) from Imaging Studies Chest X-Ray 07/04/23 13:39 IMPRESSION: Calcified granulomas. No acute abnormality is seen. Electronically Signed: Lauro Matt MD at 13:49 EST , Treatment and Re-Evaluation :: Troponin was 7. Story is not consistent with cardiac. Will discharge to home. Discharge Plan Triage Chief Complaint: Chest Pain ED Provider: Troy Botello Dx/Rx/DC Orders Clinical Impression: Non-cardiac chest pain, Hypotension, unspecified Instructions: ED Chest Pain, Noncardiac Prescriptions: No Action multivitamin Tablet 1 tab PO DAILY calcium carbonate [Calcium 600] 600 mg calcium (1,500 mg) tablet 600 mg PO DAILY cholecalciferol (vitamin D3) 125 mcg (5,000 unit) capsule 125 mcg PO DAILY amlodipine 5 MG tablet 5 mg PO DAILY Patient Comments: HAS NOT BEEN USING DUE TO BP 123/78 cephalexin 500 mg capsule 500 mg PO Q6 Qty: 12 0RF Primary Care Provider: Colby Mazariegos Referrals: Colby Mazariegos MD [Primary Care Provider] - As Needed Disposition Disposition: Home, Self Care
[2023-07-04 15:41] LABS: Reflex Troponin-HS? (from REC) Y
== END 2023-07-04 15:50 | disposition home or self-care (01) ==
PROVIDERS: Emergency Provider Emergency Medicine; PCP Family Medicine; Visit Provider Emergency Medicine
DX: R07.89 Other chest pain (principal); I95.9 Hypotension, unspecified; I10 Essential (primary) hypertension; Z90.49 Acquired absence of other specified parts of digestive tract; Z79.899 Other long term (current) drug therapy
CPT/HCPCS: 71045; 80048; 84484; 85025; 93005; 99284

== ENCOUNTER → 2023-11-28 | Outpatient (CLI) | payer MEDICARE, OTHER, SELFPAY ==
[2023-11-28 10:30] LABS: Anion Gap 6 (5-15); BUN 16 mg/dL (7-18); BUN/Creat Ratio 19.4 RATIO (10-20); Chloride 102 mmol/L (98-107); Creatinine, Serum 0.82 mg/dL (0.55-1.02); EST Glomerular Filtration Rate 73 mL/min (>60); Est Glom Filt Rate - Afr Amer 89 mL/min (>60); Glucose 105 mg/dL (74-106); Magnesium 2.4 mg/dL (1.6-2.6); Sodium Level 134 mmol/L (136-145); Thyroid Stim Hormone (TSH) 3.21 uIU/mL (0.358-3.74)
[2023-12-04 01:24] LABS: Microalbumin,Random Urine < 5.0 mg/L (NO RANGE EST.)
== END | disposition home or self-care (01) ==
LOC: LAB 09:06
PROVIDERS: PCP Family Medicine; Referring Provider Family Medicine; Visit Provider Family Medicine
DX: E03.9 Hypothyroidism, unspecified (principal); I10 Essential (primary) hypertension
CPT/HCPCS: 36415; 80048; 82043; 82570; 83735; 84443

== ENCOUNTER → 2023-12-06 | Outpatient (CLI) | payer MEDICARE, OTHER, SELFPAY ==
--- NOTE | 2023-12-06 11:47 | BI_ITS ---
MAMMOGRAPHY - BILATERAL SCREENING REASON FOR EXAM: Female, 68 years old. Routine annual screening examination. PERTINENT HISTORY: Mother with breast cancer. Remote right stereotactic breast biopsy. TECHNIQUE: Digital bilateral breast machelle (3D mammographic acquisition) in the CC and MLO projections. 2-D mediolateral oblique (MLO) and craniocaudad (CC) views of both breasts were obtained. CAD: Full Field Digital Mammography with Computer Added Detection was performed. COMPARISON: Comparison is made with prior study dated August 21, 2022 and May 01, 2021. FINDINGS: Breast Composition: The breasts are heterogeneously dense, which may obscure small masses. There are no dominant masses or suspicious calcifications. No other significant abnormalities are identified. There has been no significant change since the prior study. BI/SCRN MAMM (CAD)W/MACHELLE BILAT IMPRESSION: Stable bilateral screening mammogram. Yearly follow-up mammogram recommended. (A) ASSESSMENT CATEGORY: BIRADS Category 1: Negative. A letter regarding these results will be sent to the patient by the facility within 30 days. Approximately 10% of breast cancers are not detected by mammography. A normal mammogram should not delay biopsy of a clinically suspicious abnormality. [id number] Electronically Signed: Lauro Matt MD at 14:30 EDT ,
== END | disposition home or self-care (01) ==
LOC: OPBI 11:46
PROVIDERS: PCP Family Medicine; Referring Provider Family Medicine; Visit Provider Family Medicine
DX: Z12.31 Encounter for screening mammogram for malignant neoplasm of breast (principal); Z80.3 Family history of malignant neoplasm of breast
CPT/HCPCS: 77063; 77067

== ENCOUNTER 2024-05-25 13:39 | Outpatient (CLI) | payer MEDICARE, OTHER, SELFPAY ==
--- NOTE | 2024-05-25 | IMM_PTH ---
PATIENT: SRUTHI MCCORMACK LOC: [facility] U#:[id number] AGE/SX: 68/F ROOM: RE05/25/[address]: Dr. Colby Mazariegos MD : 1955 BED: DIS: 05/25/2024 SPEC #: [id number] RECD: 05/27/24 13:48 STATUS: MIN REQ #: [id number] TERRIE: 05/25/24 00:[address]: Colby Mazariegos DEPT: IMMUNOHISTOCHEMISTRY RECD BY: Kevin Galan Tissues: Skin of back, NOS Procedures: Vimentin (add) Pankeratin (add) MELAN-A (add) S100 (initial) PHYSICIAN & INSTITUTION [place] [id number] SPECIMEN INFORMATION: Tissue Source: Right upper back Clinical Info: Atypical nevus Specimen Number: [id number] CPT code: 65156,78895v5 METHODOLOGY: Deparaffinized sections of prefer/formalin-fixed tissue or PAP/DQ stained slides are incubated with monoclonal/polyclonal antibodies/oligonucleotide probes. Localization is made via biotin free immunoperoxidase method. Appropriate controls are performed and reacted as expected. Results on target cell population are indicated in the following table: RESULTS: ANTIBODY / CLONE RESULT S-100 (4C4.9) negative Melan A (A103) negative Vimentin (V9) negative AE1-3 (AE1/AE3/PCK26) negative These tests were developed and their performance characteristics determined by [facility]. They may not have been cleared or approved by the U.S. Food and Drug Administration. The FDA has determined that such clearance or approval is not necessary. The above immunohistochemical/dualISH markers are ordered and reviewed by the Pathologist. INTERPRETATION: Skin lesion of back, shave biopsy: No evidence of malignancy. 05/28/2024
--- NOTE | 2024-05-25 | LES_PTH ---
PATIENT: SRUTHI MCCORMACK LOC: [facility]#:[id number] AGE/SX: 68/F ROOM: RE05/25/[address]: Dr. Colby Mazariegos MD : 1955 BED: DIS: 05/25/2024 SPEC #: [id number] RECD: 05/25/24 15:03 STATUS: MIN LUCIANO #: [id number] TERRIE: 05/25/24 00:[address]: Colby Mazariegos DEPT: SURGICAL PATHOLOGY RECD BY: Maria Elena Pham Tissues: Skin of back, NOS Procedures: Surgery Specimen Level IV HEADER OPERATION: Shave biopsy PRE-OP DIAGNOSIS: Atypical nevus TISSUE SUBMITTED: Right upper back MICROSCOPIC DIAGNOSIS Skin lesion of right upper back, shave biopsy: Consistent with solar lentigo. AM.mr 05/27/2024 COMMENT Immunohistochemistry ([id number]) supports the above diagnosis. MICROSCOPIC DESCRIPTION Slides are reviewed. GROSS DESCRIPTION Received is one container labeled with the patient's name and not further designated. The specimen consists of a light griffith shave biopsy of skin measuring 0.7 x 0.5 x 0.2cm. The specimen is inked, serially sectioned and totally submitted in one cassette. 05/26/2024 TC:5 CPT:98679
== END 2024-05-25 23:59 | disposition home or self-care (01) ==
LOC: LABSPEC 13:40
PROVIDERS: PCP Family Medicine; Referring Provider Family Medicine; Visit Provider Family Medicine
DX: D48.5 Neoplasm of uncertain behavior of skin (principal)
CPT/HCPCS: 88305; 88341; 88342

== ENCOUNTER → 2024-06-11 | Outpatient (CLI) | payer MEDICARE, OTHER, SELFPAY ==
--- NOTE | 2024-06-11 09:33 | BD_ITS ---
STUDY: DUAL ENERGY X-RAY ABSORPTIOMETRY / DXA REASON FOR EXAM: Female, 68 years old. V76.12ScreeningBONE DENSITY REASON FOR EXAM TECHNIQUE: Bone Mineral Density (BMD) measurements of lumbar spine and bilateral hips were obtained. COMPARISON: Comparison is made with prior study dated December 12, 2021. FINDINGS: Lumbar Spine (L1-L4): g/cm2 (0.941) / T-score (-0.7) / Z-score (1.3) Findings are suggestive of normal bone density with a low fracture risk. Left Femur Total: g/cm2 (1.028) / T-score (0.7) / Z-score (2.1) Left Femoral Neck: g/cm2 (0.727) / T-score (-1.1) / Z-score (0.6) Right Femur Total: g/cm2 (1.063) / T-score (1.0) / Z-score (2.4) Right Femoral Neck: g/cm2 (0.704) / T-score (-1.3) / Z-score (0.4) The T-Scores on the most recent prior examination were: Lumbar Spine (L1-L4): There has been improvement of bone density since the previous examination. Left Femur Total: which represents an improvement of 1.5%. Right Femur Total: which represents an improvement of 1%. BD/Dexa Bone Density Study IMPRESSION: The patient is considered osteopenic as outlined below according to World Ka[employer] Organization (WHO) criteria with a low fracture risk. There has been improvement of bone density since the previous examination. Reference Information: The T-score is the number of standard deviations above or below the standard which is normal for young adults at their peak bone mineral density. The World Health Organization (WHO) interprets the T-scores as follows: Above -1 Normal bone density Between -1 and -2.5 Osteopenia Equal to / or below -2.5 Osteoporosis As a practical clinical guideline, osteopenia may be graded as follows: Mild -1 through -1.5 Moderate -1.6 through -2.0 Severe -2.1 through -2.4 The Z-score is the number of standard deviations above or below age-matched controls. A Z-score of less than -1.5 would be considered abnormal. References: 1. NIH Osteoporosis and Related Bone Diseases www osteo.org 2. International Society for Clinical Densitometry www iscd.org 3. National Osteoporosis Foundation www nof.org Electronically Signed: Lauro Matt MD at 15:01 EST ,
== END | disposition home or self-care (01) ==
PROVIDERS: PCP Family Medicine
DX: Z13.820 Encounter for screening for osteoporosis (principal)
CPT/HCPCS: 77080

== ENCOUNTER → 2025-04-13 | Outpatient (CLI) | payer MEDICARE, OTHER, SELFPAY ==
[2025-04-13 09:24] LABS: Hematocrit 39.7 % (37-47); Hemoglobin 13.6 g/dL (12.0-15.0); Immature Granulocytes Count 0.020 X10^3/uL (0.0-0.0); Mean Corp Hgb Conc 34.3 g/dL (32-36); Mean Corpuscular Volume 87.8 fL (81-99); Mean Platelet Vol. 10.9 fl (6.2-12.0); NRBC Flagged by Analyzer 0 % (0-5); Platelet Count 264 K/mm3 (150-450); RBC Distribution Width CV 12.6 % (11.6-14.6); RBC Distribution Width SD 40.3 fl (35.1-43.9); Red Blood Count 4.52 M/mm3 (4.2-5.4); White Blood Count 6.4 K/mm3 (4.4-11.0)
--- OUTSIDE RECORDS SUMMARY | 2025-04-13 09:26 | XMS RPT_ITS | CCD ---
Author Organization [facility] Care Team Providers Care Slag Worker Name Role Phone Alyson López Unavailable Dr. Colby Mazariegos Primary Care Provider Dr. Colby Mazariegos Referring Provider JEFF Caballero Attending Provider [phone] Dr. Dameon Youssef Attending Provider Dr. Colby Mazariegos MD Primary Care Provider RITA MCCOY Attending Provider RITA MCCOY Referring Provider [phone] Mazariegos, Colby Referring Unavailable Mazariegos, Colby Primary Care Unavailable Yair Colby Attending Unavailable Mazariegos, Colby Primary Care Unavailable Yair, Colby Attending Unavailable Mazariegos, Colby Referring Unavailable Mazariegos, Colby Primary Care Unavailable CORA TINAJERO Attending Unavailable CORA TINAJERO Referring Unavailable Yair, Colby Primary Care Unavailable Berry Suárez Attending Unavailable Mazariegos, Colby Referring Unavailable Mazariegos, Colby Referring Unavailable Mazariegos, Colby Primary Care Unavailable Yair Colby Attending Unavailable Allergies Allergy Classification Reported Allergen(s) Allergy Type Date of Onset Reaction(s) Facility (1 source) Sulfonamides (Antibiotic) drug allergy 4 [facility] Work Phone: (9 sources) Sulfonamides (Antibiotic); Translations: [Sulfa (Sulfonamide Antibiotics)] Allergy to substance [address] [facility] (1 source) Albuterol Drug Allergy [address] [facility] (1 source) Albuterol Drug Allergy 5 [facility] Repository Medications Current Medications Medication Drug Class(es) Dates Sig (Normalized) Sig (Original) amLODIPine 5 mg oral tablet (9 sources) Dihydropyridine Calcium Channel Cris Start: 05-26-2014 take 1 tablet by mouth once daily Amlodipine 5 MG tablet Active 5 mg PO DAILY May 26, 2014 1:00am calcium carbonate 1500 mg oral tablet (8 sources) Start: 11-24-2021 take 1 tablet by mouth once daily Calcium Carbonate (Calcium 600) 600 mg calcium (1,500 mg) tablet Active 600 mg PO DAILY November 24, 2021 12:00am cephalexin 500 mg oral capsule (8 sources) Cephalosporin Antibacterial Start: 02-02-2022 take 1 capsule by mouth every six hours Cephalexin 500 mg capsule Active 500 mg PO EVERY 6 HOURS February 02, 2022 12:00am cholecalciferol 0.125 mg oral capsule (8 sources) Vitamin D Start: 11-24-2021 take 1 capsule by mouth once daily Cholecalciferol (Vitamin D3) 125 mcg (5,000 unit) capsule Active 125 ug PO DAILY November 24, 2021 12:00am Multivitamin preparation (7 sources) Start: 11-24-2021 take 1 tablet by mouth once daily Multivitamin Active 1 TABLET PO DAILY November 23, 2021 11:00pm Start: 11-24-2021 take 1 tablet by murray th once daily Multivitamin Active 1 TABLET PO DAILY November 24, 2021 12:00am Multivitamin tablet (1 source) Start: 11-24-2021 Multivitamin t ablet Active 1 {tbl} PO DAILY November 24, 2021 12:00am Completed/Discontinued Medications Medication Drug Class(es) Dates Sig (Normalized) Sig (Original) amoxicillin 875 mg / clavulanate 125 mg oral tablet (1 source) Penicillin-class Antibacterial Start: 07-25-2023 End: 08-04-2023 Amoxicillin-Pot Clavulanate 875-125 mg tablet Discontinued 1 {tbl} PO Q12H 20 July 25, 2023 1:00am August 03, 2023 1:00am August 04, 2023 1:04am calcium (1 source) Phosphate Binder, Calcium Start: 02-22-2017 CALCIUM 500 + D TABS CALCIUM CARBONATE-VITAMIN D TABS [id number] Alyson López coenzyme q10 100 mg oral wafer (1 source) Start: 02-22-2017 COQ10 100 MG CAPS COENZYME Q10 [id number] Alyson López meloxicam 15 mg oral tablet (8 sources) Nonsteroidal Anti-inflammatory Drug Start: 11-24-2021 End: 12-15-2021 take 1 tablet by mouth once daily Meloxicam 15 mg tablet Discontinued 15 mg PO DAILY November 24, 2021 12:00am December 14, 2021 12:00am December 15, 2021 12:03am Do not take in conjunction with other NSAIDs. Tylenol is okay. Problems Active Problems Problem Classification Problem Date Documented Date Episodic/Chronic Nonspecific chest pain (2 sources) Non-cardiac chest pain; Translations: [Other chest pain] 07-04-2023 Episodic Open wounds of extremities (8 sources) Laceration of left index finger; Translations: [Laceration without foreign body of left index finger without damage to nail, initial encounter] 02-10-2022 Episodic Osteoarthritis (2 sources) Osteoarthritis of knee; Translations: [Unilateral primary osteoarthritis, left knee] Onset: 02-22-2017 02-22-2017 Chronic Other and unspecified benign neoplasm (1 source) Melanocytic nevi, unspecified; Translations: [Melanocytic nevi, unspecified] Onset: 07-27-2024 Episodic Other circulatory disease (2 sources) Low blood pressure; Translations: [Hypotension, unspecified] 07-04-2023 Episodic Other non-traumatic joint disorders (1 source) Effusion, left knee; Translations: [Effusion of joint, lower leg] Episodic Other screening for suspected conditions (not mental disorders or infectious disease) (2 sources) Encounter for screening for osteoporosis; Translations: [Encounter for screening mammogram for malignant neoplasm of breast] Onset: 12-16-2023 Episodic Other upper respiratory infections (2 sources) Acute sinusitis; Translations: [Acute sinusitis, unspecified] Onset: 10-02-2024 07-25-2023 Episodic Superficial injury; contusion (8 sources) Superficial foreign body of unspecified finger, initial encounter; Translations: [Foreign body in skin of finger of left hand] 02-10-2022 Episodic Thyroid disorders (1 source) Hypothyroidism, unspecified; Translations: [Hypothyroidism, unspecified] Onset: 12-03-2023 Chronic Unclassified (8 sources) Age AND/OR growth finding; Translations: [65 years of age or older] 03-17-2021 Viral infection (8 sources) Disease caused by 2019-nCoV; Translations: [COVID-19] 03-17-2021 Episodic Past or Other Problems Problem Classification Problem Date Documented Da te Episodic/Chronic Joint disorders and dislocations; trauma-related (1 source) Tear of medial meniscus of knee; Translations: [Other tear of medial meniscus, current injury, right knee] Onset: 05-04-2014 05-04-2014 Episodic Other non-traumatic joint disorders (2 sources) Knee joint effusion; Translations: [Knee pain] Onset: 05-04-2014 05-04-2014 Episodic Results Test Name Value Interpretation Reference Range Facility Urgent Care Visit Reporton 0 10-02-2024 Urgent Care Visit Report [facility] [address], [address] [place] [address] OFFICE VISIT Date of Service: 10/02/24 MR#: [id number] Acct: [id number] Name: SRUTHI MCCORMACK JOSE Rep #: [id number] : 1955 Provider: JEFF Cruz Age/Sex: 69/F Location: [facility] Status: Signed Intake Vital Signs 07/25/23 11:23 10/02/24 11:22 Height 5 ft 1 in BP 132/82 H Blood Pressure Location Rt brachial Position Sitting Respiration 16 Pulse 58 L Pulse Source NIBP Temp 98.1 F Temp Source Oral Pulse Oximetry (%) 95 Oxygen Delivery Method room air Intake Visit Reasons: R EAR PAIN Chief Complaint: right ear pain into jaw Telecommunications Engineer Required: No Is patient in pain?: Yes Allergies Sulfa (Sulfonamide Antibiotics) Allergy (Verified 10/02/24 11:23) Rash albuterol Adverse Reaction (Intermediate, Verified 10/02/24 11:23) Vomiting Medications ???Medication ???Instructions ???Recorded ???Confirmed ???Type amlodipine 5 mg tablet 5 mg PO DAILY 05/26/14 02/02/22 Hi story calcium carbonate (Calcium 600) 600 mg PO DAILY 11/24/21 02/02/22 History cholecalciferol (vitamin D3) 125 125 mcg PO DAILY 11/24/21 02/02/22 History mcg (5,000 unit) capsule multivitamin 1 tab PO DAILY 11/24/21 02/02/22 H istory amoxicillin 875 mg-potassium 1 tab PO Q12H 10 days #20 tabs 05/1810/02/24 Rx clavulanate 125 mg tablet ipratropium bromide 21 mcg (0.03 2 spray intranasal BID-TID PRN 05/1810/02/24 Rx %) nasal spray postnasal drainage #30 mL Is last menstrual period known: No Post menopausal: Yes Patient : No Have you fallen in the past year?: No Nurse's Note: right ear pain into right jaw x 5 days. denies fever, ST, cough, [place], [place]. concern for ear infection [facility] Medical History HTN (hypertension) Social History (Updated 07/04/23 @ 14:[address] Troy Botello MD) household members: spouse and family Smoking Status: Never smoker [facility] HPI Chief Complaint: right ear pain into jaw Details: SRUTHI MCCORMACK, is a 69 F who presents to the office today for complaint of sinus congestion and pressure on the right side of her face as well as right ear pain. Patient denies fever, chills or sweats. No nausea, vomiting or diarrhea. No hemoptysis, shortness of breath or difficulty breathing. No loss of taste or smell. No other associated symptoms or alleviating/aggrava ting factors. ROS Const Constitutional: No other (6 system ROS completed with pertinent findings in the HPI otherwise normal.) Exam Const General: cooperative and healthy appearing [facility] Head: normal to inspection Ears: hearing grossly normal bilaterally, TM's normal bilaterally and EAC's normal Nose: nasal discharge purulent Face and sinus: sinus tenderness frontal and maxillary Mouth: oral mucosae normal Throat: abnormal tonsil bilaterally erythema and hypertrophy 1+ and postnasal drainage Resp Effort Inspection: normal respiratory effort Auscultation: Bilateral: Clear to Auscultation Cardio Rate: regular rate Rhythm: regular rhythm Neuro General: patient alert Psych Appearance: grossly normal Mental Status: mental status grossly normal Coding Level of Care Code Off vis,est,level 3 Diagnoses Acute sinusitis J01.90 Assessment and Plan Assessment and Plan (1) Acute sinusitis: Status: Acute Plan: Augmentin and Atrovent as prescribed today. Encouraged to get plenty of rest, drink lots of clear liquids, and use Tylenol or Ibuprofen (unless contraindicated) for fever and comfort. Patient also educated on other symptomatic management techniques. To be seen in 7-10 days if no improvement; sooner if worsening of symptoms. Patient advised of potential red flags and when appropriate to report to the ED. Patient verbalized understanding and agreement with all the above. Medications: New amoxicillin-pot clavulanate 875-125 mg 1 TAB PO Q12H 20 tabs 0RF 10 days J01.90 - Acute sinusitis, unspecified ipratropium bromide administer into each nostril 2 sprays intranasal BID-TID PRN 30 mL 0RF postnasal drainage Clinical Quality Measures Falls Risk Screening/Assistive Devices Have you fallen in the past year?: No 10/02/24 1157 Date Berry Gallegos Signature: Date (if applicable) CC: Normal [facility] Bone density reportOrdered B y: Lauro Matt on 07-01-2024 Study report Skeletal system DXA [facility] Imaging Services [facility] [place], [place] [address] Dexa Bone Density Study MR#: [id number] Acct: [id number] Name: SRUTHI MCCORMACK JOSE Rep #: [id number] : 1955 F 68 From: Alvin Matt MD PCP: Dr. Colby Mazariegos MD Status: REG CLI Study:Dexa Bone Density Study Date of Exam: 06/11/24 Exam# [id number] Ordering Dr: hSaronda Mccoy ELECTRICAL MANUFACTURING ENGINEER-C -[id number] STUDY: DUAL ENERGY X-RAY ABSORPTIOMETRY / DXA REASON FOR EXAM: Female, 68 years old. V76.12ScreeningBONE DENSITY REASON FOR EXAM TECHNIQUE: Bone Mineral Density (BMD) measurements of lumbar spine and bilateral hips were obtained. COMPARISON: Comparison is made with prior study dated December 12, 2021. FINDINGS: Lumbar Spine (L1-L4): g/cm2 (0.941) / T-score (-0.7) / Z-score (1.3) Findings are suggestive of normal bone density with a low fracture risk. Left Femur Total: g/cm2 (1.028) / T-score (0.7) / Z-score (2.1) Left Femoral Neck: g/cm2 (0.727) / T-score (-1.1) / Z-score (0.6) Right Femur Total: g/cm2 (1.063) / T-score (1.0) / Z-score (2.4) Right Femoral Neck: g/cm2 (0.704) / T-score (-1.3) / Z-score (0.4) The T-Scores on the most recent prior examination were: Lumbar Spine (L1-L4): There has been improvement of bone density since the previous examination. Left Femur Total: which represents an improvement of 1.5%. Right Femur Total: which represents an improvement of 1%. BD/Dexa Bone Density Study IMPRESSION: The patient is considered osteopenic as outlined below according to World Kaiden Organization (WHO) criteria with a low fracture risk. There has been improvement of bone density since the previous examination. Reference Information: The T-score is the number of standard deviations above or below the standard which is normal for young adults at their peak bone mineral density. The World Health Organization (WHO) interprets the T-scores as follows: Above -1 Normal bone density Between -1 and -2.5 Osteopenia Equal to / or below -2.5 Osteoporosis As a practical clinical guideline, osteopenia may be graded as follows: Mild -1 through -1.5 Moderate -1.6 through -2.0 Severe -2.1 through -2.4 The Z-score is the number of standard deviations above or below age-matched controls. A Z-score of less than -1.5 would be considered abnormal. References: 1. NIH Osteoporosis and Related Bone Diseases www osteo.org 2. International Society for Clinical Densitometry www iscd.org 3. National Osteoporosis Foundation www nof.org Electronically Signed: Lauro Matt MD at 15:01 EST Reading Location ID and State: [address] [place] [address] , Service support , CC: Dr. Colby Mazariegos MD; Rita Mccoy ~ Jailor: Signed [facility] Dexa Bone Density Studyon Dexa Bone Density Study [facility] Imaging Services [address] [place] [id number] Dexa Bone Density Study MR#: [id number] Acct: [id number] Name: SRUTHI MCCORMACK Rep #: [id number] : 1955 F 68 From: Lauro radford MD PCP: Dr. Colby Mazariegos MD Status: [facility] Study: Dexa Bone Density Study Date of Exam: 06/11/24 Exam# [id number] Ordering Dr: Rita Mccoy NP -[id number] STUDY: DUAL ENERGY X-RAY ABSORPTIOMETRY / DXA REASON FOR EXAM: Female, 68 years old. V76.12ScreeningBONE DENSITY REASON FOR EXAM TECHNIQUE: Bone Mineral Density (BMD) measurements of lumbar spine and bilateral hips were obtained. COMPARISON: Comparison is made with prior study dated December 12, 2021. FINDINGS: Lumbar Spine (L1-L4): g/cm2 (0.941) / T-score (-0.7) / Z-score (1.3) Findings are suggestive of normal bone density with a low fracture risk. Left Femur Total: g/cm2 (1.028) / T-score (0.7) / Z-score (2.1) Left Femoral Neck: g/cm2 (0.727) / T-score (-1.1) / Z-score (0.6) Right Femur Total: g/cm2 (1.063) / T-score (1.0) / Z-score (2.4) Right Femoral Neck: g/cm2 (0.704) / T-score (-1.3) / Z-score (0.4) The T-Scores on the most recent prior examination were: Lumbar Spine (L1-L4): There has been improvement of bone density since the previous examination. Left Femur Total: which represents an improvement of 1.5%. Right Femur Total: which represents an improvement of 1%. BD/Dexa Bone Density Study IMPRESSION: The patient is considered osteopenic as outlined below according to World Ka[employer] Organization (WHO) criteria with a low fracture risk. There has been improvement of bone density since the previous examination. Reference Information: The T-score is the number of standard deviations above or below the standard which is normal for young adults at their peak bone mineral density. The World Health Organization (WHO) interprets the T-scores as follows: Above -1 Normal bone density Between -1 and -2.5 Osteopenia Equal to / or below -2.5 Osteoporosis As a practical clinical guideline, osteopenia may be graded as follows: Mild -1 through -1.5 Moderate -1.6 through -2.0 Severe -2.1 through -2.4 The Z-score is the number of standard deviations above or below age-matched controls. A Z-score of less than -1.5 would be considered abnormal. References: 1. NIH Osteoporosis and Related Bone Diseases www osteo.org 2. International Society for Clinical Densitometry www iscd.org 3. National Osteoporosis Foundation www nof.org Electronically Signed: Lauro Matt MD at 15:01 EST , CC: Dr. Colby Mazariegos MD; Rita Mccoy Jailor: Signed Normal [facility] Surgery Specimen Level Hunter 05-25-2024 Surgery Specimen Level IV Patient Age/Sex Location Account Attending Physician SRUTHI MCCORMACK 68/F LABSPEC [id number] Dr. Colby Mazariegos MD Specimen: [id number] Received: 05/25/24 Status: MIN Angela Num: [id number] Spec Type: Lesion Subm Dr: Dr. Colby Mazariegos MD HEADER OPERATION: Shave biopsy PRE-OP DIAGNOSIS: Atypical nevus TISSUE SUBMITTED: Right upper back MICROSCOPIC DIAGNOSIS Skin lesion of right upper back, shave biopsy: Consistent with solar lentigo. AM. 05/27/2024 COMMENT Immunohistochemistr y ([id number]) supports the above diagnosis. MICROSCOPIC DESCRIPTION Slides are reviewed. GROSS DESCRIPTION Received is one container labeled with the patient's name and not further designated. The specimen consists of a light griffith shave biopsy of skin measuring 0.7 x 0.5 x 0.2cm. The specimen is inked, serially sectioned and totally submitted in one cassette. AM. 05/26/2024 TC:5 CPT:68614 Patient Age/Sex Location Account Attending Physician SRUTHI MCCORMACK 68/F LABSPEC [id number] Dr. Colby Mazariegos MD Signed (signatur e on file) Dr. Avery Saravia DO 05/28/[address] [facility] Comment on above: Performed By: #### P PATI #### [facility] [address] [place], [place], [address] Vimentin (add)on 05-25-2024 Vimentin (add) Patient Age/Sex Location Account Attending Physician SRUTHI MCCORMACK 68/F LABSPEC [id number] Dr. Colby Mazariegos MD Specimen: [id number] Received: 05/27/24 Status: MIN Angela Num: [id number] Spec Type: IMMUNO Subm Dr: Dr. Colby Mazariegos MD PHYSICIAN INSTITUTION [place] [address] SPECIMEN INFORMATION: Tissue Source: Right upper back Clinical Info: Atypical nevus Specimen Number: [id number] CPT code: 35017,72904p9 METHODOLOGY: Deparaffinized sections of prefer/formalin-fix ed tissue or PAP/DQ stained slides are incubated with monoclonal/polyclon al antibodies/oligonuc leotide probes. Localization is made via biotin free immunoperoxidase method. Appropriate controls are performed and reacted as expected. Results on target cell population are indicated in the following table: RESULTS: ANTIBODY / CLONE RESULT S-100 (4C4.9) negative Melan A (A103) negative Vimentin (V9) negative AE1-3 (AE1/AE3/PCK26) negative These tests were developed and their performance characteristics determined by [facility]. They may not have been cleared or approved by the U.S. Food and Drug Administration. The FDA has determined that such clearance or approval is not necessary. The above immunohistochemical /dualISH markers are ordered and reviewed by the Pathologist. INTERPRETATION: Skin lesion of back, shave biopsy: No evidence of malignancy. AM. 05/28/2024 Signed (signatur e on file) Dr. Avery Saravia DO 05/28/[address] [facility] Comment on above: Performed By: #### P VIM. #### [facility] [address] [place], [place], [address] SCRN MAMM (CAD)W/MACHELLE BILATo n 12-06-2023 SCRN MAMM (CAD)W/MACHELLE BILAT [facility] Imaging Services [address] [place] [address] SCRN MAMM (CAD)W/MACHELLE BILAT MR#: [id number] Acct: [id number] Name: SRUTHI MCCORMACK Rep #: [id number] : 1955 F 68 From: Lauro radford MD PCP: Dr. Colby Mazariegos MD Status: [facility] Study: SCRN MAMM (CAD)W/MACHELLE BILAT Date of Exam: 11/22 10/15 Exam# [id number] Ordering Dr: Colby Mazariegos MD -[id number] MAMMOGRAPHY - BILATERAL SCREENING REASON FOR EXAM: Female, 68 years old. Routine annual screening examination. PERTINENT HISTORY: Mother with breast cancer. Remote right stereotactic breast biopsy. TECHNIQUE: Digital bilateral breast machelle (3D mammographic acquisition) in the CC and MLO projections. 2-D mediolateral oblique (MLO) and craniocaudad (CC) views of both breasts were obtained. CAD: Full Field Digital Mammography with Computer Added Detection was performed. COMPARISON: Comparison is made with prior study dated August 21, 2022 and May 01, 2021. FINDINGS: Breast Composition: The breasts are heterogeneously dense, which may obscure small masses. There are no dominant masses or suspicious calcifications. No other significant abnormalities are identified. There has been no significant change since the prior study. BI/SCRN MAMM (CAD)W/MACHELLE BILAT IMPRESSION: Stable bilateral screening mammogram. Yearly follow-up mammogram recommended. (A) ASSESSMENT CATEGORY: BIRADS Category 1: Negative. A letter regarding these results will be sent to the patient by the facility within 30 days. Approximately 10% of breast cancers are not detected by mammography. A normal mammogram should not delay biopsy of a clinically suspicious abnormality. [id number] Electronically Signed: Lauro Matt MD at 14:30 EDT , CC: Dr. Colby Mazariegos MD Jailor: Signed Normal [facility] Microalb:Creat Ratio,Random URon 12-04-2023 MALB:CRE TNP Normal <30 mg/g CRE [facility] Comment on above: Order Comment: Order Date: 06/04/23 Order Info: 0779-1 - MIACRE Performed By: #### L 501.9520, L501.5200, L500.2500, L502.0250 #### [facility] [address] [place], [place], [id number] MICROALBUMIN,UR < 5.0 Normal NO RANGE EST. [facility] Comment on above: Order Comment: Order Date: 06/04/23 Order Info: 0779-1 - MIACRE Performed By: #### L 501.9520, L501.5200, L500.2500, L502.0250 #### [facility] [address] [place], [address] Basic Metabolic Profile (BMP )on 11-28-2023 BUN/CRE 19.4 RATIO Normal 10-20 [facility] Comment on above: Order Comment: Order Date: 06/04/23 Order Info: 0667-1 - BMP Order Info: 93816-0 - MG Order Info: 3016-3 - TSH Performed By: #### L 501.9520, L501.5200, L500.2500, L502.0250 #### [facility] [address] [place], [address] CA,Total 9.0 mg/dL Normal 8.5-10.1 [facility] Comment on above: Order Comment: Order Date: 06/04/23 Order Info: 0667- - BMP Order Info: 54481-2 - MG Order Info: 3 - TSH Performed By: #### L 501.9520, L501.5200, L500.2500, L502.0250 #### [facility] [address] [place], [address] Chloride [Moles/Vol] 102 mmol/L Normal 98-107 [facility] Comment on above: Order Comment: Order Date: 06/04/23 Order Info: 0667- - BMP Order Info: [id number] - MG Order Info: 3015-08 - TSH Performed By: #### L 501.9520, L501.5200, L500.2500, L502.0250 #### [facility] [address] [place], [address] CO2 [Moles/Vol] 26.0 mmol/L Normal 21.0-32.0 [facility] Comment on above: Order Comment: Order Date: 06/04/23 Order Info: 0667- - BMP Order Info: [id number] - MG Order Info: 3 - TSH Performed By: #### L 501.9520, L501.5200, L500.2500, L502.0250 #### [facility] [address] [place], [address] Creatinine [Mass/Vol] 0.82 mg/dL Normal 0.55-1.02 [facility] Comment on above: Order Comment: Order Date: 06/04/23 Order Info: 0667-1 - BMP Order Info: 26472-5 - MG Order Info: 3015-3 - TSH Result Comment: The validity of the calculated GFR GFRAA in patients over 70 years has not been determined. Clinical correlation is essential. Performed By: #### L 501.9520, L501.5200, L500.2500, L502.0250 #### [facility] [address] [place], [address] EST GFR - AA 89 mL/min Normal >60 [facility] Comment on above: Order Comment: Order Date: 06/04/23 Order Info: 06- - BMP Order Info: 70401-9 - MG Order Info: 3015-3 - TSH Result Comment: Afri can Ivorian GFR Calc Performed By: #### L 501.9520, L501.5200, L500.2500, L502.0250 #### [facility] [address] [place], [address] GAP 6 Normal 5-15 [facility] Comment on above: Order Comment: Order Date: 06/04/23 Order Info: 06- - BMP Order Info: [id number] - MG Order Info: 3 - TSH Performed By: #### L 501.9520, L501.5200, L500.2500, L502.0250 #### [facility] [facility] [address] [place], [address] GFR/1.73 sq M.predicted among non-blacks MDRD (S/P/Bld) [Vol rate/Area] 73 mL/min/{1.73_m2} Normal >60 [facility] Comment on above: Order Comment: Order Date: 06/04/23 Order Info: [id number] - BMP Order Info: [id number] - MG Order Info: [id number] - TSH Result Comment: Non- GFR Calc Performed By: #### L [id number], L501.5200, L500.2500, L502.0250 #### [facility] [address] [place], [address] Glucose [Mass/Vol] 105 mg/dL Normal 74-106 [facility] Comment on above: Order Comment: Order Date: 06/04/23 Order Info: [id number] - BMP Order Info: [id number] - MG Order Info: 3015-08 - TSH Result Comment: Fast ing Glucose result from 100 to 125 mg/dL suggests IMPAIRED HOMEOSTASIS per A.D.A. criteria. Performed By: #### L [id number], [id number], L500.2500, L502.0250 #### [facility] [address] [place], [address] Potassium [Moles/Vol] 4.0 mmol/L Normal 3.5-5.1 [facility] Comment on above: Order Comment: Order Date: 06/04/23 Order Info: 666-06 - BMP Order Info: [id number] - MG Order Info: 3 - TSH Performed By: #### L [id number], [id number], L500.2500, L502.0250 #### [facility] [address] [place], [address] Sodium [Moles/Vol] 134 mmol/L Low 136-145 [facility] Comment on above: Order Comment: Order Date: 06/04/23 Order Info: [id number] - BMP Order Info: [id number] - MG Order Info: 3 - TSH Performed By: #### L [id number], [id number], L500.2500, L502.0250 #### [facility] [address] [place], [address] Urea nitrogen [Mass/Vol] 16 mg/dL Normal 7-18 [facility] Comment on above: Order Comment: Order Date: 06/04/23 Order Info: 666-06 - BMP Order Info: [id number] - MG Order Info: 3015-08 - TSH Performed By: #### L [id number], [id number], L500.2500, L502.0250 #### [facility] [address] [place], [address] Magnesiumon 11-28-2023 Magnesium [Mass/Vol] 2.4 mg/dL Normal 1.6-2.6 [facility] Comment on above: Order Comment: Order Date: 06/04/23 Order Info: [id number] - BMP Order Info: [id number] - MG Order Info: [id number] - TSH Performed By: #### L [id number], [id number], L500.2500, L502.0250 #### [facility] [address] [place], [place], [address] Thyroid Stim Hormone (TSH)on 11-28-2023 TSH 3.21 uIU/mL Normal 0.358-3.74 [facility] Comment on above: Order Comment: Order Date: 06/04/23 Order Info: 666-06 - BMP Order Info: [id number] - MG Order Info: [id number] - TSH Performed By: #### L [id number], [id number], L500.2500, L502.0250 #### [facility] [address] [place], [place], [id number] Absolute lymphocyte countOrd ered By: ED PROVIDER on 07-04-2023 Lymphocytes Auto (Unsp spec) [#/Vol] 0.87 10*3/uL 0.83-4.51 [facility] Basophil percentageOrdered B y: ED PROVIDER on 07-04-2023 Basophils/100 WBC (Bld) 0.5 % 0-1 [facility] Chloride [Moles/Vol] 101 mmol/L 98-107 [facility] Eosinophils/100 WBC (Bld) 1.2 % 0-5 [facility] Glucose [Mass/Vol] 103 mg/dL 74-106 [facility] Comment on above: Fasting Glucose resu lt from 100 to 125 mg/dL suggests IMPAIRED HOMEOSTASIS per A.D.A. criteria. Neutrophils (Bld) [#/Vol] 4.8 10*3/uL 2.0-7.7 [facility] Neutrophils/100 WBC (Bld) 72.5 % 47-70 [facility] Potassium [Moles/Vol] 3.6 mmol/L 3.5-5.1 [facility] Sodium [Moles/Vol] 134 mmol/L 136-145 [facility] WBC (Bld) [#/Vol] 6.6 10*3/uL 4.4-11.0 [facility] Blood erythrocytes count (nu mber/volume)Ordered By: ED PROVIDER on 07-04-2023 RBC (Bld) [#/Vol] 4.55 10*6/uL 4.2-5.4 [facility] Blood hemoglobin measurement (mass/volume)Ordered By: ED PROVIDER on 07-04-2023 Hemoglobin (Bld) [Mass/Vol] 13.5 g/dL 12.0-15.0 [facility] Blood lymphocytes/100 leukoc ytesOrdered By: ED PROVIDER on 07-04-2023 Lymphocytes/100 WBC (Bld) 13.3 % 19-41 [facility] Blood monocytes/100 leukocyt esOrdered By: ED PROVIDER on 07-04-2023 Monocytes/100 WBC (Bld) 12.2 % 0-10 [facility] Blood platelet mean volumeOr dered By: ED PROVIDER on 07-04-2023 Platelet mean volume (Bld) [Entitic vol] 10.8 fL 6.2-12.0 [facility] Determination of erythrocyte mean corpuscular volume (MCV)Ordered By: ED PROVIDER on 07-04-2023 MCV (RBC) [Entitic vol] 87.5 fL 81-99 [facility] Hematocrit Auto (Bld) [Volum e fraction]Ordered By: ED PROVIDER on 07-04-2023 Hematocrit (Bld) [Volume fraction] 39.8 % 37-47 [facility] - Chemistry and C hemistry - challengeOrdered By: ED PROVIDER on 07-04-2023 CO2 [Moles/Vol] 23.0 mmol/L 21.0-32.0 [facility] Urea nitrogen/Creatinine [Mass ratio] 16.9 mg/mg 10-20 [facility] - Hematology and Cell countsOrdered By: ED PROVIDER on 07-04-2023 Erythrocyte distribution width (RBC) [Entitic vol] 39.9 fL 35.1-43.9 [facility] Erythrocyte distribution width (RBC) [Ratio] 12.5 % 11.6-14.6 [facility] Immature granulocytes/100 WBC (Bld) 0.300 % 0.0-0.9 [facility] Comment on above: IG% - Immature Granu locytes (promyelocytes, myelocytes and metamyelocytes) > 1% indicates that a LEFT SHIFT is Present. MCH (RBC) [Entitic mass] 29.7 pg 27.0-32.0 [facility] Nucleated RBC/100 WBC (Bld) [Ratio] 0 % 0-5 [facility] MCHC Auto (RBC) [Mass/Vol]Or dered By: ED PROVIDER on 07-04-2023 MCHC (RBC) [Mass/Vol] 33.9 g/dL 32-36 [facility] No Panel InformationOrdered By: ED PROVIDER on 07-04-2023 Estimated Creatinine Clearance Calc 68.42 ml/min [facility] Estimated GFR (MDRD) Amer 96 mL/min >60 [facility] Comment on above: GFR Calc Estimated GFR (MDRD) Non-Af Amer 80 mL/min >60 [facility] Comment on above: Non- GFR Calc Troponin I High Sensitivity 7 pg/mL 3.0-54.0 [facility] Comment on above: Please Note: New Ernestina t Units and Gender Specific Reference Ranges. For more information see Policy Stat Procedure [place] High Sensitivity Troponin (TNIH) and attachments. Platelets bldOrdered By: ED PROVIDER on 07-04-2023 Platelets (Bld) [#/Vol] 235 10*3/uL 150-450 [facility] Serum or plasma calcium sundar urement (mass/volume)Ordered By: ED PROVIDER on 07-04-2023 Calcium [Mass/Vol] 9.3 mg/dL 8.5-10.1 [facility] Serum or plasma creatinine m easurement (mass/volume)Ordered By: ED PROVIDER on 07-04-2023 Creatinine [Mass/Vol] 0.77 mg/dL 0.55-1.02 [facility] Comment on above: The validity of the calculated GFR & GFRAA in patients over 70 years has not been determined. Clinical correlation is essential. Serum or plasma urea nitroge n measurement (mass/volume)Ordered By: ED PROVIDER on 07-04-2023 Urea nitrogen [Mass/Vol] 13 mg/dL 7-18 [facility] Thin prep Papanicolaou smear with manual screeningOrdered By: ED PROVIDER on 07-04-2023 Thin prep Papanicolaou smear with manual screening 10 5-15 [facility] Basophil percentageOrdered B y: Colby Mazariegos on 05-29-2023 Chloride [Moles/Vol] 109 mmol/L 98-107 [facility] Glucose [Mass/Vol] 111 mg/dL 74-106 [facility] Comment on above: Fasting Glucose resu lt from 100 to 125 mg/dL suggests IMPAIRED HOMEOSTASIS per A.D.A. criteria. Potassium [Moles/Vol] 3.6 mmol/L 3.5-5.1 [facility] Sodium [Moles/Vol] 139 mmol/L 136-145 [facility] - Chemistry and C hemistry - challengeOrdered By: Colby Mazariegos on 05-29-2023 CO2 [Moles/Vol] 23.0 mmol/L 21.0-32.0 [facility] Free T4 [Mass/Vol] 1.00 ng/dL 0.76-1.46 [facility] Urea nitrogen/Creatinine [Mass ratio] 16.2 mg/mg 10-20 [facility] No Panel InformationOrdered By: Colby Mazariegos on 05-29-2023 Estimated GFR (MDRD) Amer 84 mL/min >60 [facility] Comment on above: GFR Calc Estimated GFR (MDRD) Non-Af Amer 69 mL/min >60 [facility] Comment on above: Non- GFR Calc Free Triiodothyronine (T3) pg/dL 2.5 pg/mL 2.18-3.98 [facility] Thyroid Stimulating Hormone (TSH) 2.84 uIU/mL 0.358-3.74 [facility] Urine Microalbumin/Creatinin e Ratio 4.9 mg/g CRE <30 [facility] Serum or plasma calcium sundar urement (mass/volume)Ordered By: Colby Mazariegos on 05-29-2023 Calcium [Mass/Vol] 8.7 mg/dL 8.5-10.1 [facility] Serum or plasma creatinine m easurement (mass/volume)Ordered By: Colby Mazariegos on 05-29-2023 Creatinine [Mass/Vol] 0.86 mg/dL 0.55-1.02 [facility] Comment on above: The validity of the calculated GFR & GFRAA in patients over 70 years has not been determined. Clinical correlation is essential. Serum or plasma urea nitroge n measurement (mass/volume)Ordered By: Colby Mazariegos on 05-29-2023 Urea nitrogen [Mass/Vol] 14 mg/dL 7-18 [facility] Thin prep Papanicolaou smear with manual screeningOrdered By: Colby Mazariegos on 05-29-2023 Thin prep Papanicolaou smear with manual screening 7 5-15 [facility] Thin prep Papanicolaou smear with manual screening 19.9 mg/L NO RANGE EST. [facility] Urine creatinine measurement (mass/volume)Ordered By: Colby Mazariegos on 05-29-2023 Creatinine (U) [Mass/Vol] 403.00 mg/dL NO RANGE EST. [facility] Absolute lymphocyte countOrd ered By: Colby Mazariegos on 01-31-2023 Lymphocytes Auto (Unsp spec) [#/Vol] 2.07 10*3/uL 0.83-4.51 [facility] Basophil percentageOrdered B y: Colby Mazariegos on 01-31-2023 Basophils/100 WBC (Bld) 0.5 % 0-1 [facility] Bilirubin [Mass/Vol] 0.40 mg/dL 0.20-1.00 [facility] Comment on above: For patients on eltr ombopag therapy, use of Dimension [place] TBIL is not recommended. Chloride [Moles/Vol] 107 mmol/L 98-107 [facility] Cholesterol [Mass/Vol] 175 mg/dL <200 [facility] Comment on above: <200 mg/dL Desirable 200-240 mg/dL Borderline >240 mg/dL High Risk Eosinophils/100 WBC (Bld) 3.7 % 0-5 [facility] Glucose [Mass/Vol] 106 mg/dL 74-106 [facility] Comment on above: Fasting Glucose resu lt from 100 to 125 mg/dL suggests IMPAIRED HOMEOSTASIS per A.D.A. criteria. Neutrophils (Bld) [#/Vol] 2.7 10*3/uL 2.0-7.7 [facility] Neutrophils/100 WBC (Bld) 48.5 % 47-70 [facility] Potassium [Moles/Vol] 4.3 mmol/L 3.5-5.1 [facility] Protein [Mass/Vol] 7.2 g/dL 6.4-8.2 [facility] Sodium [Moles/Vol] 139 mmol/L 136-145 [facility] Triglyceride [Mass/Vol] 85 mg/dL <199 [facility] Comment on above: The drugs N-Acetylcy steine and Metamizole may falsely depress this assay.Serum Triglycerides Reference Interval Normal <150 mg/dL Borderline high 150 - 199 mg/dL High 200 - 499 mg/dL Very High > or = 500 mg/dL WBC (Bld) [#/Vol] 5.6 10*3/uL 4.4-11.0 [facility] Blood erythrocytes count (nu mber/volume)Ordered By: Colby Mazariegos on 01-31-2023 RBC (Bld) [#/Vol] 4.65 10*6/uL 4.2-5.4 [facility] Blood hemoglobin measurement (mass/volume)Ordered By: Colby Mazariegos on 01-31-2023 Hemoglobin (Bld) [Mass/Vol] 13.7 g/dL 12.0-15.0 [facility] Blood lymphocytes/100 leukoc ytesOrdered By: Colby Mazariegos on 01-31-2023 Lymphocytes/100 WBC (Bld) 36.9 % 19-41 [facility] Blood monocytes/100 leukocyt esOrdered By: Colby Mazariegos on 01-31-2023 Monocytes/100 WBC (Bld) 10.0 % 0-10 [facility] Blood platelet mean volumeOr dered By: Colby Mazariegos on 01-31-2023 Platelet mean volume (Bld) [Entitic vol] 11.0 fL 6.2-12.0 [facility] Determination of erythrocyte mean corpuscular volume (MCV)Ordered By: Colby Mazariegos on 01-31-2023 MCV (RBC) [Entitic vol] 91.0 fL 81-99 [facility] Hematocrit Auto (Bld) [Volum e fraction]Ordered By: Colby Mazariegos on 01-31-2023 Hematocrit (Bld) [Volume fraction] 42.3 % 37-47 [facility] - Chemistry and C hemistry - challengeOrdered By: Colby Mazariegos on 01-31-2023 ALP [Catalytic activity/Vol] 85 U/L 45-117 [facility] ALT [Catalytic activity/Vol] 28 U/L 13-56 [facility] CO2 [Moles/Vol] 28.0 mmol/L 21.0-32.0 [facility] Free T4 [Mass/Vol] 0.93 ng/dL 0.76-1.46 [facility] Globulin (S) [Mass/Vol] 3.9 g/dL 2.2-4.2 [facility] Urea nitrogen/Creatinine [Mass ratio] 11.3 mg/mg 10-20 [facility] - Hematology and Cell countsOrdered By: Colby Mazariegos on 01-31-2023 Erythrocyte distribution width (RBC) [Entitic vol] 42.3 fL 35.1-43.9 [facility] Erythrocyte distribution width (RBC) [Ratio] 12.8 % 11.6-14.6 [facility] Immature granulocytes/100 WBC (Bld) 0.400 % 0.0-0.9 [facility] Comment on above: IG% - Immature Granu locytes (promyelocytes, myelocytes and metamyelocytes) > 1% indicates that a LEFT SHIFT is Present. MCH (RBC) [Entitic mass] 29.5 pg 27.0-32.0 [facility] Nucleated RBC/100 WBC (Bld) [Ratio] 0 % 0-5 [facility] MCHC Auto (RBC) [Mass/Vol]Or dered By: Colby Mazariegos on 01-31-2023 MCHC (RBC) [Mass/Vol] 32.4 g/dL 32-36 [facility] No Panel InformationOrdered By: Colby Mazariegos on 01-31-2023 Estimated GFR (MDRD) Amer 82 mL/min >60 [facility] Comment on above: GFR Calc Estimated GFR (MDRD) Non-Af Amer 68 mL/min >60 [facility] Comment on above: Non- GFR Calc Free Triiodothyronine (T3) pg/dL 2.5 pg/mL 2.18-3.98 [facility] Thyroid Stimulating Hormone (TSH) 5.47 uIU/mL 0.358-3.74 [facility] Platelets bldOrdered By: Carmela Mazariegos on 01-31-2023 Platelets (Bld) [#/Vol] 257 10*3/uL 150-450 [facility] Serum or plasma albumin sundar urement (mass/volume)Ordered By: Colby Mazariegos on 01-31-2023 Albumin [Mass/Vol] 3.3 g/dL 3.2-5.0 [facility] Serum or plasma albumin/glob ulin mass ratioOrdered By: Colby Mazariegos on 01-31-2023 Albumin/Globulin [Mass ratio] 0.8 {ratio} 0.9-2.4 [facility] Serum or plasma calcium sundar urement (mass/volume)Ordered By: Colby Mazariegos on 01-31-2023 Calcium [Mass/Vol] 8.6 mg/dL 8.5-10.1 [facility] Serum or plasma cholesterol in HDL measurement (mass/volume)Ordered By: Colby Mazariegos on 01-31-2023 Cholesterol in HDL [Mass/Vol] 62 mg/dL >40 [facility] Comment on above: The drugs N-Acetylcy steine and Metamizole may falsely depress this assay. Reference Range HDL <40 mg/dL Low HDL Cholesterol HDL >or= 60 mg/dL High HDL Cholesterol Serum or plasma cholesterol in VLDL measurement (mass/volume)Ordered By: Colby Mazariegos on 01-31-2023 Cholesterol in VLDL [Mass/Vol] 17 mg/dL 5-40 [facility] Serum or plasma creatinine m easurement (mass/volume)Ordered By: Colby Mazariegos on 01-31-2023 Creatinine [Mass/Vol] 0.88 mg/dL 0.55-1.02 [facility] Comment on above: The validity of the calculated GFR & GFRAA in patients over 70 years has not been determined. Clinical correlation is essential. Serum or plasma low density lipoprotein (LDL) cholesterol measurement (mass/volume)Ordered By: Colby Mazariegos on 01-31-2023 Cholesterol in LDL [Mass/Vol] 96 mg/dL 0-130 [facility] Serum or plasma urea nitroge n measurement (mass/volume)Ordered By: Colby Mazariegos on 01-31-2023 Urea nitrogen [Mass/Vol] 10 mg/dL 7-18 [facility] Thin prep Papanicolaou smear with manual screeningOrdered By: Colby Mazariegos on 01-31-2023 Thin prep Papanicolaou smear with manual screening 17 U/L 15-37 [facility] Thin prep Papanicolaou smear with manual screening 4 5-15 [facility] Absolute lymphocyte countOrd ered By: Dr. Mazariegos on 2022 Lymphocytes Auto (Unsp spec) [#/Vol] 2.09 10*3/uL 0.83-4.51 [facility] Basophil percentageOrdered B y: Dr. Mazariegos on 2022 Basophils/100 WBC (Bld) 0.7 % 0-1 [facility] Bilirubin [Mass/Vol] 0.50 mg/dL 0.20-1.00 [facility] Comment on above: For patients on eltr ombopag therapy, use of Dimension [place] TBIL is not recommended. Chloride [Moles/Vol] 107 mmol/L 98-107 [facility] Eosinophils/100 WBC (Bld) 2.3 % 0-5 [facility] Glucose [Mass/Vol] 104 mg/dL 74-106 [facility] Comment on above: Fasting Glucose resu lt from 100 to 125 mg/dL suggests IMPAIRED HOMEOSTASIS per A.D.A. criteria. Neutrophils (Bld) [#/Vol] 3.9 10*3/uL 2.0-7.7 [facility] Neutrophils/100 WBC (Bld) 57.0 % 47-70 [facility] Potassium [Moles/Vol] 3.8 mmol/L 3.5-5.1 [facility] Protein [Mass/Vol] 7.4 g/dL 6.4-8.2 [facility] Sodium [Moles/Vol] 140 mmol/L 136-145 [facility] WBC (Bld) [#/Vol] 6.9 10*3/uL 4.4-11.0 [facility] Blood erythrocytes count (nu mber/volume)Ordered By: Dr. Mazariegos on 2022 RBC (Bld) [#/Vol] 4.36 10*6/uL 4.2-5.4 [facility] Blood hemoglobin measurement (mass/volume)Ordered By: Dr. Mazariegos on 2022 Hemoglobin (Bld) [Mass/Vol] 13.3 g/dL 12.0-15.0 [facility] Blood lymphocytes/100 leukoc ytesOrdered By: Dr. Mazariegos on 2022 Lymphocytes/100 WBC (Bld) 30.5 % 19-41 [facility] Blood monocytes/100 leukocyt esOrdered By: Dr. Mazariegos on 2022 Monocytes/100 WBC (Bld) 9.2 % 0-10 [facility] Blood platelet mean volumeOr dered By: Dr. Mazariegos on 2022 Platelet mean volume (Bld) [Entitic vol] 11.8 fL 6.2-12.0 [facility] Determination of erythrocyte mean corpuscular volume (MCV)Ordered By: Dr. Mazariegos on 2022 MCV (RBC) [Entitic vol] 89.0 fL 81-99 [facility] Hematocrit Auto (Bld) [Volum e fraction]Ordered By: Dr. Mazariegos on 2022 Hematocrit (Bld) [Volume fraction] 38.8 % 37-47 [facility] INR in Blood by Coagulation assayOrdered By: Dr. Mazariegos on 2022 INR Coag (Bld) [Relative time] 1.0 {INR} [facility] - Chemistry and C hemistry - challengeOrdered By: Dr. Mazariegos on 2022 ALP [Catalytic activity/Vol] 85 U/L 45-117 [facility] ALT [Catalytic activity/Vol] 24 U/L 13-56 [facility] Amylase [Catalytic activity/Vol] 31 U/L 5-55 [facility] CO2 [Moles/Vol] 26.0 mmol/L 21.0-32.0 [facility] Free T4 [Mass/Vol] 0.90 ng/dL 0.76-1.46 [facility] Globulin (S) [Mass/Vol] 3.9 g/dL 2.2-4.2 [facility] Urea nitrogen/Creatinine [Mass ratio] 16.6 mg/mg 10-20 [facility] - CoagulationOrde red By: Dr. Mazariegos on 2022 PT Coag (PPP) [Time] 13.2 s 11.7-14.9 [facility] - Hematology and Cell countsOrdered By: Dr. Mazariegos on 2022 Erythrocyte distribution width (RBC) [Entitic vol] 41.4 fL 35.1-43.9 [facility] Erythrocyte distribution width (RBC) [Ratio] 12.6 % 11.6-14.6 [facility] Immature granulocytes/100 WBC (Bld) 0.300 % 0.0-0.9 [facility] Comment on above: IG% - Immature Granu locytes (promyelocytes, myelocytes and metamyelocytes) > 1% indicates that a LEFT SHIFT is Present. MCH (RBC) [Entitic mass] 30.5 pg 27.0-32.0 [facility] Nucleated RBC/100 WBC (Bld) [Ratio] 0 % 0-5 [facility] MCHC Auto (RBC) [Mass/Vol]Or dered By: Dr. Mazariegos on 2022 MCHC (RBC) [Mass/Vol] 34.3 g/dL 32-36 [facility] No Panel InformationOrdered By: Dr. Mazariegos on 2022 Estimated GFR (MDRD) Amer 103 mL/min >60 [facility] Comment on above: GFR Calc Estimated GFR (MDRD) Non-Af Amer 86 mL/min >60 [facility] Comment on above: Non- GFR Calc Free Triiodothyronine (T3) pg/dL 2.7 pg/mL 2.18-3.98 [facility] Thyroid Stimulating Hormone (TSH) 4.46 uIU/mL 0.358-3.74 [facility] Urine Microalbumin/Creatinin e Ratio 16.5 mg/g CRE <30 [facility] Vitamin D 25-Hydroxy 48.6 ng/mL [facility] Comment on above: Vitamin D 25(OH) Sta tus Range Deficiency <20 ng/mL (50nmol/L) Insufficiency 20 - 30 ng/mL (50 - 75 nmol/L) Sufficiency 30 - 100 ng/mL (75 - 250 nmol/L) Toxicity >100 ng/mL (>250 nmol/L) Platelets bldOrdered By: Dr. Mazariegos on 2022 Platelets (Bld) [#/Vol] 259 10*3/uL 150-450 [facility] Serum or plasma C reactive p rotein measurement (mass/volume)Ordered By: Dr. Mazariegos on 2022 CRP [Mass/Vol] 7.89 mg/L 0.0-3.0 [facility] Comment on above: C-Reactive Protein ( CRP) provides useful information for thediagnosis, therapy and monitoring of inflammatory processesand associated diseases. For the evaluation of Relative Riskfor Cardiovascular Disease, a High Sensitivity CRP (HSCRP)should be ordered. Serum or plasma albumin sundar urement (mass/volume)Ordered By: Dr. Mazariegos on 2022 Albumin [Mass/Vol] 3.5 g/dL 3.2-5.0 [facility] Serum or plasma albumin/glob ulin mass ratioOrdered By: Dr. Mazariegos on 2022 Albumin/Globulin [Mass ratio] 0.9 {ratio} 0.9-2.4 [facility] Serum or plasma calcium sundar urement (mass/volume)Ordered By: Dr. Mazariegos on 2022 Calcium [Mass/Vol] 9.1 mg/dL 8.5-10.1 [facility] Serum or plasma creatinine m easurement (mass/volume)Ordered By: Dr. Mazariegos on 2022 Creatinine [Mass/Vol] 0.72 mg/dL 0.55-1.02 [facility] Comment on above: The validity of the calculated GFR & GFRAA in patients over 70 years has not been determined. Clinical correlation is essential. Serum or plasma urea nitroge n measurement (mass/volume)Ordered By: Dr. Mazariegos on 2022 Urea nitrogen [Mass/Vol] 12 mg/dL 7-18 [facility] Thin prep Papanicolaou smear with manual screeningOrdered By: Dr. Mazariegos on 2022 Thin prep Papanicolaou smear with manual screening 20 U/L 15-37 [facility] Thin prep Papanicolaou smear with manual screening 7 5-15 [facility] Thin prep Papanicolaou smear with manual screening 29.1 mg/L NO RANGE EST. [facility] Urine creatinine measurement (mass/volume)Ordered By: Dr. Mazariegos on 2022 Creatinine (U) [Mass/Vol] 176.00 mg/dL NO RANGE EST. [facility] Absolute lymphocyte countOrd ered By: Dr. Mazariegos on 05-10-2022 Lymphocytes Auto (Unsp spec) [#/Vol] 2.12 10*3/uL 0.83-4.51 [facility] Basophil percentageOrdered B y: Dr. Mazariegos on 05-10-2022 Basophils/100 WBC (Bld) 0.2 % 0-1 [facility] Bilirubin [Mass/Vol] 0.70 mg/dL 0.20-1.00 [facility] Comment on above: For patients on eltr ombopag therapy, use of Dimension [place] TBIL is not recommended. Chloride [Moles/Vol] 102 mmol/L 98-107 [facility] Eosinophils/100 WBC (Bld) 1.2 % 0-5 [facility] Glucose [Mass/Vol] 112 mg/dL 74-106 [facility] Comment on above: Fasting Glucose resu lt from 100 to 125 mg/dL suggests IMPAIRED HOMEOSTASIS per A.D.A. criteria. Neutrophils (Bld) [#/Vol] 13.7 10*3/uL 2.0-7.7 [facility] Neutrophils/100 WBC (Bld) 79.7 % 47-70 [facility] Potassium [Moles/Vol] 4.2 mmol/L 3.5-5.1 [facility] Protein [Mass/Vol] 6.6 g/dL 6.4-8.2 [facility] Sodium [Moles/Vol] 137 mmol/L 136-145 [facility] WBC (Bld) [#/Vol] 17.2 10*3/uL 4.4-11.0 [facility] Blood erythrocytes count (nu mber/volume)Ordered By: Dr. Mazariegos on 05-10-2022 RBC (Bld) [#/Vol] 4.15 10*6/uL 4.2-5.4 [facility] Blood hemoglobin measurement (mass/volume)Ordered By: Dr. Mazariegos on 05-10-2022 Hemoglobin (Bld) [Mass/Vol] 12.7 g/dL 12.0-15.0 [facility] Blood lymphocytes/100 leukoc ytesOrdered By: Dr. Mazariegos on 05-10-2022 Lymphocytes/100 WBC (Bld) 12.3 % 19-41 [facility] Blood monocytes/100 leukocyt esOrdered By: Dr. Mazariegos on 05-10-2022 Monocytes/100 WBC (Bld) 6.1 % 0-10 [facility] Blood platelet mean volumeOr dered By: Dr. Mazariegos on 05-10-2022 Platelet mean volume (Bld) [Entitic vol] 10.1 fL 6.2-12.0 [facility] Determination of erythrocyte mean corpuscular volume (MCV)Ordered By: Dr. Mazariegos on 05-10-2022 MCV (RBC) [Entitic vol] 90.8 fL 81-99 [facility] Hematocrit Auto (Bld) [Volum e fraction]Ordered By: Dr. Mazariegos on 05-10-2022 Hematocrit (Bld) [Volume fraction] 37.7 % 37-47 [facility] Laboratory - Chemistry and C hemistry - challengeOrdered By: Dr. Mazariegos on 05-10-2022 ALP [Catalytic activity/Vol] 75 U/L 45-117 [facility] ALT [Catalytic activity/Vol] 30 U/L 13-56 [facility] CO2 [Moles/Vol] 29.0 mmol/L 21.0-32.0 [facility] Globulin (S) [Mass/Vol] 3.8 g/dL 2.2-4.2 [facility] Urea nitrogen/Creatinine [Mass ratio] 14.6 mg/mg 10-20 [facility] Laboratory - Hematology and Cell countsOrdered By: Dr. Mazariegos on 05-10-2022 Erythrocyte distribution width (RBC) [Entitic vol] 44.0 fL 35.1-43.9 [facility] Erythrocyte distribution width (RBC) [Ratio] 13.3 % 11.6-14.6 [facility] Immature granulocytes/100 WBC (Bld) 0.500 % 0.0-0.9 [facility] Comment on above: IG% - Immature Granu locytes (promyelocytes, myelocytes and metamyelocytes) > 1% indicates that a LEFT SHIFT is Present. MCH (RBC) [Entitic mass] 30.6 pg 27.0-32.0 [facility] Nucleated RBC/100 WBC (Bld) [Ratio] 0 % 0-5 [facility] MCHC Auto (RBC) [Mass/Vol]Or dered By: Dr. Mazariegos on 05-10-2022 MCHC (RBC) [Mass/Vol] 33.7 g/dL 32-36 [facility] No Panel InformationOrdered By: Dr. Mazariegos on 05-10-2022 Estimated GFR (MDRD) Amer 111 mL/min >60 [facility] Comment on above: GFR Calc Estimated GFR (MDRD) Non-Af Amer 91 mL/min >60 [facility] Comment on above: Non- GFR Calc Thyroid Stimulating Hormone (TSH) 4.71 uIU/mL 0.358-3.74 [facility] Urine Microalbumin/Creatinin e Ratio 3.6 mg/g CRE <30 [facility] Platelets bldOrdered By: Dr. Mazariegos on 05-10-2022 Platelets (Bld) [#/Vol] 308 10*3/uL 150-450 [facility] Serum or plasma albumin sundar urement (mass/volume)Ordered By: Dr. Mazariegos on 05-10-2022 Albumin [Mass/Vol] 2.8 g/dL 3.2-5.0 [facility] Serum or plasma albumin/glob ulin mass ratioOrdered By: Dr. Mazariegos on 05-10-2022 Albumin/Globulin [Mass ratio] 0.7 {ratio} 0.9-2.4 [facility] Serum or plasma calcium sundar urement (mass/volume)Ordered By: Dr. Mazariegos on 05-10-2022 Calcium [Mass/Vol] 8.6 mg/dL 8.5-10.1 [facility] Serum or plasma creatinine m easurement (mass/volume)Ordered By: Dr. Mazariegos on 05-10-2022 Creatinine [Mass/Vol] 0.68 mg/dL 0.55-1.02 [facility] Comment on above: The validity of the calculated GFR & GFRAA in patients over 70 years has not been determined. Clinical correlation is essential. Serum or plasma urea nitroge n measurement (mass/volume)Ordered By: Dr. Mazariegos on 05-10-2022 Urea nitrogen [Mass/Vol] 10 mg/dL 7-18 [facility] Thin prep Papanicolaou smear with manual screeningOrdered By: Dr. Mazariegos on 05-10-2022 Thin prep Papanicolaou smear with manual screening 16 U/L 15-37 [facility] Thin prep Papanicolaou smear with manual screening 6 5-15 [facility] Thin prep Papanicolaou smear with manual screening 6.4 mg/L NO RANGE EST. [facility] Urine creatinine measurement (mass/volume)Ordered By: Dr. Mazariegos on 05-10-2022 Creatinine (U) [Mass/Vol] 175.00 mg/dL NO RANGE EST. [facility] Office Visiton 02-22-2017 Dietary management education, guidance, and counseling (procedure) yes Invalid Interpretation Code [facility] Work Phone: Documentation of current medications (procedure) Done Invalid Interpretation Code [facility] Work Phone: Tobacco use CPHS Never smoker Invalid Interpretation Code [facility] Work Phone: Lab Report: CBCDon 4 Absolute Neutrophil count 3.1 X10 3/UL Normal 2.0-7.7 [facility] Work Phone: Basophils/100 leukocytes 0.4 % Normal 0-1 [facility] Work Phone: Eosinophils/100 leukocytes 2.0 % Normal 0-5 [facility] Work Phone: Erythrocytes (RBC) 4.03 10*6/uL Low 4.2-5.4 [facility] Work Phone: Hematocrit (HCT) 36.0 % Low 37-47 [facility] Work Phone: Hemoglobin (HGB) 12.1 g/dL Normal 12.0-15.0 [facility] Work Phone: Lymphocytes/100 leukocytes 30.8 % Normal 19-41 [facility] Work Phone: MCH 30.0 pg Normal 27.0-32.0 [facility] Work Phone: MCHC 33.6 G/GL Normal 32-36 [facility] Work Phone: MCV 89.3 fL Normal 81-99 [facility] Work Phone: Monocytes/100 leukocytes 9.0 % Normal 0-10 [facility] Work Phone: Neutrophils/100 leukocytes 57.8 % Normal 47-70 [facility] Work Phone: Platelets 208 10*3/mm3 Normal 150-450 [facility] Work Phone: PMV by Cal 11.4 fL Normal 6.2-12.0 [facility] Work Phone: RDW-CA 1.67 X10 3/ul Normal 0.83-4.51 [facility] Work Phone: WBC (Leukocytes) 5.4 10*3/uL Normal 4.4-11.0 [facility] Work Phone: Microbiology: SIGRIDmira 014 Culture, Anaerobic No anaerobic bacteria isolated. Invalid Interpretation Code [facility] Work Phone: Microbiology: SIGRIDmira 014 CSF culture and gram stain No organisms seen Normal [facility] Work Phone: Replaced Document: Siri crystals, body fluid Absent Normal [facility] Work Phone: Vital Signs Date Time Vital Sign Value Performing Clinician Facility 07-04-2023 14:15-0500 Diastolic blood pressure 71 mm[Hg] [facility] 07-04-2023 14:15-0500 Heart rate 69 /min [facility] 07-04-2023 14:15-0500 Respiratory rate 18 /min [facility] 07-04-2023 14:15-0500 SaO2% (BldA) [Mass fraction] 99 % [facility] 07-04-2023 14:15-0500 Systolic blood pressure 155 mm[Hg] [facility] 07-04-2023 11:31-0500 Body height 154.94 cm [facility] 07-04-2023 11:31-0500 Body mass index (BMI) [Ratio] 36.2 kg/m2 [facility] 07-04-2023 11:31-0500 Body temperature 97 [degF] [facility] 07-04-2023 11:31-0500 Body weight 87.08 kg [facility] 02-02-2022 14:05-0400 Body temperature 98.9 [degF] Dr. Colby Mazariegos Work Phone: [facility] Work Phone: 02-02-2022 14:05-0400 Diastolic blood pressure 78 mm[Hg] Dr. Colby Mazariegos Work Phone: [facility] Work Phone: 02-02-2022 14:05-0400 Heart rate 64 /min Dr. Colby Mazariegos Work Phone: [facility] Work Phone: 02-02-2022 14:05-0400 Respiratory rate 14 /min Dr. Colby Mazariegos Work Phone: [facility] Work Phone: 02-02-2022 14:05-0400 SaO2% (BldA) [Mass fraction] 99 % Dr. Colby Mazariegos Work Phone: [facility] Work Phone: 02-02-2022 14:05-0400 Systolic blood pressure 124 mm[Hg] Dr. Colby Mazariegos Work Phone: [facility] Work Phone: 02-02-2022 12:21-0400 Body height 154.[address] Colby Mazariegos Work Phone: [facility] Work Phone: 02-02-2022 12:21-0400 Body mass index (BMI) [Ratio] 36.6 kg/m2 Dr. Colby Mazariegos Work Phone: [facility] Work Phone: 02-02-2022 12:21-0400 Body weight 87.[address] Colby Mazariegos Work Phone: [facility] Work Phone: 05-18-2014 08:20-0500 BMI (Body Mass Index) 32.06 kg/m2 [facility] Work Phone: 05-18-2014 08:20-0500 Weight 82.1 kg [facility] Work Phone: 05-04-2014 09:49-0500 BP Diastolic 80 mm[Hg] [facility] Work Phone: 05-04-2014 09:49-0500 BP Systolic 125 mm[Hg] [facility] Work Phone: 05-04-2014 09:49-0500 Height 160.02 cm [facility] Work Phone: 05-04-2014 09:49-0500 Pulse (Heart Rate) 70 /min [facility] Work Phone: Encounters Encounter Date Encounter Type Care Provider Facility Start: 10-02-2024 End: 10-02-2024 ambulatory Colby Mazariegos Facility:[facility] Start: 06-11-2024 End: 06-11-[address] Colby Mazariegos MD Work Phone: [facility] Work Phone: Start: 06-11-2024 End: 06-11-[address] Colby Mazariegos MD Work Phone: -Outpatient Bone Densitometry Work Phone: Start: 06-11-2024 End: 06-11-2024 ambulatory Colby Mazariegos Facility:[facility] Start: 05-25-2024 End: 05-25-2024 ambulatory Colby Mazariegos Facility:[facility] Start: 12-06-2023 End: 12-06-2023 ambulatory Colby Mazariegos Facility:[facility] Start: 11-28-2023 End: 11-28-2023 ambulatory Colbyliliana Mazariegos Facility:[facility] Start: 07-04-2023 End: 07-04-2023 Emergency department patient visit [facility] Work Phone: Start: 05-29-2023 End: 05-29-[address] [facility] Work Phone: Start: 05-29-2023 End: 05-29-[address] [facility] [place] Work Phone: Start: 01-31-2023 End: 01-31-[address] [facility] Work Phone: Start: 01-31-2023 End: 01-31-[address] [facility] Work Phone: Start: 08-21-2022 End: 08-21-[address] [facility] Work Phone: Start: 08-21-2022 End: 08-21-[address] [facility] Start: 2022 End: [address] [facility] Work Phone: Start: 2022 End: [address] [facility] Start: 05-10-2022 End: 05-10-[address] [facility] Work Phone: Start: 05-10-2022 End: 05-10-[address] [facility] Start: 02-02-2022 End: 02-02-2022 Emergency department patient visit Dr. Colby Mazariegos Work Phone: [facility] Start: 12-12-2021 End: 12-12-[address] Colby Mazariegos Work Phone: [facility]Outpatient [facility]ometry Start: 11-24-2021 End: 11-24-[address] Colby Mazariegos Work Phone: [facility] Procedures Date Procedure Procedure Detail Performing Clinician Start: 06-11-2024 Dual energy X-ray absorptiometry Dr. Colby Mazariegos MD Work Phone: Start: 07-04-2023 Plain chest X-ray Start: 05-29-2023 Plain X-ray of bilat eral sacroiliac joints Start: 05-29-2023 Plain x-ray of pelvi s and lower extremity Start: 08-21-2022 Screening mammography Start: 02-02-2022 Plain x-ray of hand Dr. Colby Mazariegos Work Phone: Start: 12-12-2021 Dual energy X-ray absorptiometry Dr. Colby Mazariegos Work Phone: Start: 11-24-2021 Radiologic examinati on of knee Dr. Colby Mazariegos Work Phone: Start: 05-04-2014 End: 05-26-2014 *CBC with Differential Alyson aguirre Work Phone: Start: 05-04-2014 End: 05-04-2014 Drain/inject, joint/bursa Alyson huffman Work Phone: Plan of Treatment Date Care Activity Detail Author Start: 07-04-2023 [facility] Start: 07-04-[address] [facility] Start: 07-04-2023 [facility] Start: 02-02-2022 Simple repair scalp/neck/ax/genit/esther nk 2.5cm/< RPR S/N/AX/GEN/TRNK 2.5CM/< [facility] Work Phone: Start: 02-22-2017 End: 02-22-2017 Appointment Appointment [facility] Work Phone: Start: 02-22-2017 End: 02-22-2017 X-ray exam, knee, 4 or more X-Ray, Knee [facility] Work Phone: Start: 08-24-2014 End: 08-24-2014 X-ray exam, knee, 4 or more X-Ray, Knee [facility] Work Phone: Start: 05-04-2014 End: 05-26-2014 *CBC with Differential *CBC with Differential [facility] Work Phone: Start: 05-04-2014 End: 05-04-2014 Bacteria identified in Body fluid by Culture *CUBF- Culture, Body Fluid [facility] Work Phone: Start: 05-04-2014 End: 05-04-2014 Crystals [type] in Body fluid by Light microscopy *DAV - Crystals, Body Fluid [facility] Work Phone: Start: 05-04-2014 End: 05-04-2014 Glucose *GLUBF - Glucose, Body Fluid [facility] Work Phone: Start: 05-04-2014 End: 05-04-2014 Microscopic observation *GS - Gram Stain [facility] Work Phone: Start: 05-04-2014 End: 05-04-2014 Mri jnt of lwr extre w/o dye MRI Joint Lower Extremity [facility] Work Phone: Start: 05-04-2014 End: 05-04-2014 Protein in fluid *PROBF - Protein, Body Fluid [facility] Work Phone: Start: 05-04-2014 End: 05-04-2014 X-ray exam, knee, 4 or more X-Ray, Knee [facility] Work Phone: Patient Education [facility] Work Phone: Patient referral [facility] Work Phone: Immunizations Immunization Date Immunization Notes Care Provider Natalie schaefer 02-02-2022 tetanus toxoid, redu charisse diphtheria toxoid, and acellular pertussis vaccine, adsorbed Dr. Colby Mazariegos Work Phone: [facility] Payers Date Payer Category Payer Medicare [id number] 2023 Private Health Insurance [id number] 2023 Self-pay [id number] 2012 Unknown [id number] Unknown [facility] DO N OT USE [id number] Unknown [id number] Unknown [id number] Unknown [id number] Unknown [id number] Unknown [id number] Social History Date Type Detail Facility Start: 02-02-2022 End: 07-04-2023 Tobacco smoking status NHIS Unknown if ever smoked [facility] Start: 1955 Sex Assigned At Female [facility] Start: 07-25-2023 Tobacco smoking stat us ALIS Never smoked tobacco (finding) [facility] Start: 09-28-2024 Sex Female (finding) [facility] Mental Status Date Assessment Result Facility 07-04-2023 Cognitive function Level Of Cons ciousness Awake;Alert;Appropriate;Follow s Commands [facility] Work Phone: Discharge summary 07-04-2023 Note Date & Type Note Facility 07-04-2023 Discharge summary Note Date/Time July 04, 2023 2:51pm [facility] Medical Records Department [address] [place] [address] Emergency Department Summary 07/04/23 MR#: [id number] Acct: [id number] Name: SRUTHI MCCORMACK Rep #:[id number] : 1955 67 From: Troy Botello MD PCP: Dr. Colby Mazariegos MD Status:REG ER Location: ED HPI History of Present Illness Chief Complaint: Chest Pain Detail of Chief Complaint: Sternal chest discomfort after drinking soda Informant: patient Onset/Context/Timing Onset: Hours Activity at onset: sudden Timing: Intermittent Quality: Positive for Pressure (Ball-like sensation mid sternum) Location: Substernal Current Severity: Gone (Resolved after burping) Maximum Severity: Moderate Worsened By: - (After drinking carbonated beverage) Relieved By: - (Belching) Associated Symptoms: Negative for Nausea, Vomiting, Diaphoresis, Dyspnea, Cough,Fever, Lightheadedness, Acid Reflux or Palpitations Narrative Narrative: Patient is a 67-year-old woman with history of hypertension who presents with midsternal pressure bubble sensation. This occurred at rest. Patient states inroute she belched and the pain resolved. There is no radiation. There is no associated symptoms. Furthermore, there was no radiation of the discomfort. Patient denies history of GERD or hiatal hernia. She is status postcholecystectomy. She denies intolerance to any foods. She denies black or maroon-colored stool. She has no infectious symptoms. She presently has no pain. She has not had any recent viral-like symptoms. Shespecifically denied vomiting or diarrhea. Prior Similar Symptoms: No Recent Illness/Hospitalization: No CVD Risk Factors: Positive for Hypertension; Negative for Diabetes, Hypercholesterolemia, Family History 1' </=55 or Smoking PE Risk Factors: Negative for Recent Travel/Surgery, Recent Immobilization, Prior DVT or PE, Cancer or OCP + Smoking + >/=35 TAD Risk Factors: Positive for Hypertension; Negative for Marfan's Syndrome or Family History PFSH PFS Medical History HTN (hypertension) Home Medications amlodipine 5 mg tablet 5 mg PO DAILY 05/26/14 [History Last Taken 06/02/14 07:00] calcium carbonate 600 mg calcium (1,500 mg) tablet (Calcium) 600 mg PO DAILY 11/24/21 [History Last Taken Unknown] cholecalciferol (vitamin D3) 125 mcg (5,000 unit) capsule 125 mcg PO DAILY 11/24/21 [History Last Taken Unknown] multivitamin 1 tab PO DAILY 11/24/21 [History Last Taken Unknown] cephalexin 500 mg capsule 500 mg PO Q6 #12 caps 02/02/22 [Rx Last Taken Unknown] Allergy/AdvReac Type Severity Reaction Status Date / Time Sulfa (Sulfonamide Allergy Rash Verified 07/04/23 11:34 Antibiotics) Social History (Updated 07/04/23 @ 14:[address] Troy Botello MD) household members: spouse and family Smoking Status: Never smoker ROS ROS ED Constitutional Constitutional ED: Denies chills, fever(s) or subjective Eyes Eyes: Reports none ENT ENT ED: Denies rhinorrhea or sore throat Cardiovascular Cardiovascular: Reports as per HPI; Denies orthopnea or paroxysmal nocturnal dyspnea Respiratory/Chest Respiratory/Chest: Denies cough, dyspnea, dyspnea on exertion, orthopnea or paroxysmal nocturnal dyspnea Gastrointestinal Gastrointestinal: Denies abdominal pain, diarrhea or vomiting Musculoskeletal Musculoskeletal: Denies arthralgias, back pain, myalgias or neck pain Integumentary Denies rash Neurologic Neurologic: Denies weakness Hematologic/Lymphatic Hematologic/Lymphatic: Denies easy bleeding or easy bruising EXAM Physical Exam Narrative Exam Narrative: Blood pressure reading was initially low. She was not tachycardic, however. Const Vital Signs: 07/04/23 11:31 07/04/23 11:31 07/04/23 14:15 Temperature 97.0 F L Temperature Source Temporal Pulse Rate 71 Respiratory Rate 16 Blood Pressure 95/48 L Blood Pressure Mean 63 Pulse Ox 96 Oxygen Delivery Method Room Air Room Air 07/04/23 14:15 Temperature Temperature Source Pulse Rate 69 Respiratory Rate 18 Blood Pressure 155/71 H Blood Pressure Mean 99 Pulse Ox 99 Oxygen Delivery Method Positive well nourished, well developed and obese General Appearance ED: well developed and NAD; Negative for pallor Nutritional Appearance: obese HEENT Reports moist mucous membranes normocephalic and atraumatic Eyes PERRL and EOMs intact bilaterally General Eye ED: Negative for pale conjunctiva or scleral icterus Chest Wall inspection of chest normal and palpation of chest normal Resp normal respiratory effort and clear to auscultation bilaterally Cardio regular rate, regular rhythm, S1 normal heart sound, S2 normal heart sound and no murmurs GI normal to inspection, nondistended, normoactive bowel sounds, soft to palpation,non-tender, non-distended and no masses; Negative for hepatosplenomegaly Back/Spine Back/Spine Narrative: Flexion of the back is normal. There is no tenderness to palpation. Extremity normal to inspection Extremity Narrative: There is no asymmetry, swelling, discoloration, leg vein distention, palpable cords or tenderness along the distribution of the deep venous system. Neuro oriented x3 and CN's II-XII intact bilaterally Sensorium / Orientation: awake and alert Psych mental status grossly normal Skin no rashes or lesions noted and no wounds General Skin Exam: Negative for jaundice or pallor Heart Score History: Slightly/Non-Suspicious ECG: Normal Age: >/= 65 years Risk Factors: 1 or 2 Risk Factors Troponin: </= Normal Limit Score: 3 MDM MDM MDM Narrative Medical decision making narrative: With atypical chest pain. Suspect this is GI in etiology. EKG and blood work was initiated by nurse per nurse protocol. Lab Data Attestation: I reviewed the patient's lab results. Lab results narrative: BC is normal. BMP is normal. Troponin is normal. Labs: Laboratory Results - last 24 hr 07/04/23 13:35 WBC 6.6 RBC 4.55 Hgb 13.5 Hct 39.8 MCV 87.5 MCH 29.7 MCHC 33.9 RDW Std Deviation 39.9 RDW Coeff of Alfreda 12.5 Plt Count 235 MPV 10.8 Immature Gran % (Auto) 0.300 Neut % (Auto) 72.5 H Lymph % (Auto) 13.3 L Lamar % (Auto) 12.2 H Eos % (Auto) 1.2 Baso % (Auto) 0.5 Absolute Neuts (auto) 4.8 Absolute Lymphs (auto) 0.87 Nucleated RBC % 0 Sodium 134 L Potassium 3.6 Chloride 101 Carbon Dioxide 23.0 Anion Gap 10 BUN 13 Creatinine 0.77 Estim Creat Clear Calc 68.42 Est GFR (MDRD) Af Amer 96 Est GFR (MDRD) Non-Af 80 BUN/Creatinine Ratio 16.9 Glucose 103 Calcium 9.3 Troponin I High Sens 7 Radiography Chest X-Ray - ED: 1 View and Read by ED Physician (Chest x-ray reveals granulomatous disease in the perihilar region. Cardiac silhouette size is normal. Lung parenchyma is unremarkable. Osseous structures are unremarkable. There are no acute findings per my independent review of the chest x-ray/interpretation) Diagnostic Testing: Clinical Impression(s) from Imaging Studies Chest X-Ray 07/04/23 13:39 IMPRESSION: Calcified granulomas. No acute abnormality is seen. Electronically Signed: Lauro Mtat MD at 13:49 EST , Treatment and Re-Evaluation :: Troponin was 7. Story is not consistent with cardiac. Will discharge to home. Discharge Plan Triage Chief Complaint: Chest Pain ED Provider: Troy Botello Dx/Rx/DC Orders Clinical Impression: Non-cardiac chest pain, Hypotension, unspecified Instructions: ED Chest Pain, Noncardiac Prescriptions: No Action multivitamin Tablet 1 tab PO DAILY calcium carbonate [Calcium 600] 600 mg calcium (1,500 mg) tablet 600 mg PO DAILY cholecalciferol (vitamin D3) 125 mcg (5,000 unit) capsule 125 mcg PO DAILY amlodipine 5 MG tablet 5 mg PO DAILY Patient Comments: HAS NOT BEEN USING DUE TO BP 123/78 cephalexin 500 mg capsule 500 mg PO Q6 Qty: 12 0RF Primary Care Provider: Colby Mazariegos Referrals: Colby Mazariegos MD [Primary Care Provider] - As Needed Disposition Disposition: Home, Self Care What to do if you have Problems For any increased pain, shortness of breath, bleeding, nausea or vomiting, chestpain, or any unexpected problems, contact your Primary Care Provider. Call [facility] ([phone]) or report to the closest Emergency Room. Call 911 if necessary. 07/04/23 [id number] <Electronically signed by Troy Botello MD> Cosigner Signature (if applicable): CC: Dr. Colby Mazariegos MD ~ Signed [facility] Work Phone: Evaluation note Note Date & Type Note Facility Evaluation note Diagnosis Onset Date Effusion, left knee noneacti ve Left knee DJD noneactive [facility] Work Phone: Evaluation note Note Date & Type Note Facility Evaluation note No assessment information availa ble [facility] Work Phone: Reason for referral (narrative) Note Date & Type Note Facility Reason for referral (narrative) No reason for referral information available [facility] Work Phone: Chief Complaint and Reason for Visit Chief Complaint LEFT KNEE xray OSTEO L INDEX FINGER INJURY Reason for Visit Effusion, left knee Left knee DJD Chief Complaint L INDEX FINGER INJUR Y E ORDERS Chief Complaint E ORDERS INT LABS Chief Complaint E ORDERS INT LABS SCREENING Chief Complaint E ORDERS Chief Complaint EORDER FOR LABWORK Chief Complaint EORDER FOR LABWORK chest pain Chief Complaint Admit Date SCREEN FOR OSTEOPOROSIS June 11 024 9:29am Advance Directives No Advanced Directives Records Found Advance Directive Response Recorded Date/ Time Advance Directives No May 26, 2014 4:25pm Living Will No February 02 2 12:21pm Power of Recording Clerk No February 02 022 12:21pm Advance Directive Response Recorded Date/ Time Advance Directives No May 26, 2014 3:25pm Living Will No February 02 2 11:21am Power of Recording Clerk No February 02 022 11:21am Advance Directive Response Recorded Date/ Time Advance Directives No May 26, 2014 3:25pm Living Will No July 04 2:19pm Power of Recording Clerk No July 04, 2023 2:19pm Advance Directive Response Recorded Date/ Time Living Will No July 25 12:04pm Do you have a Healthcare Power of Recording Clerk? No July 25, 2023 12:04pm Advance Directives No July 25, 2023 12:04pm Summary Purpose Family History No Family History Records Found Additional Source Comments Goals (unrecognized section and content) Goals may be documented in a n alternate sectionGoals may be documented in an alternate sectionGoals may be documented in an alternate sectionGoals may be documented in an alternate sectionGoals may be documented in an alternate sectionGoals may be documented in an alternate sectionGoals may be documented in an alternate sectionGoals may be documented in an alternate section Care Teams (unrecognized sec tion and content) Team Status: Active Member Role Status Dates Dr. Colby Mazariegos MD Primary Care Provider Active Team Status: Inactive Member Role Status Dates Dr. Colby Mazariegos MD Primary Care Provide r, Attending Provider, Referring Provider Active Team Status: Inactive Member Role Status Dates Dr. Colby Mazariegos MD Primary Care Provider, Attending P natalee Active Team Status: Inactive Member Role Status Dates Dr. Colby Mazariegos MD Primary Care Provider Active Dr. Troy Botello MD Emergency Provider Active Team Status: Inactive Member Role Status Dates Dr. Colby Mazariegos MD Primary Care Provider Active Start: June 11, 2024 End: June 11, 2024 NADINE VERMA Attending Provider Active Start: 2023 End: June 11, 2024 NADINE VERMA Referring Provider Active Start: 2023 End: June 11, 2024 INFORMATION SOURCE (unrecogn ized section and content) DATE CREATED AUTHOR 10/04/2024 [facility] FOR RECORDS PERTAINING TO PATIENTS WHO ARE [...] BE BASED ON THE PRIMARY CLINICAL RECORDS. [employer] provides no warranty or guarantee of the accuracy or completeness of information in this document.
[2025-04-13 10:37] LABS: Creatinine, Urine (random) 96.10 mg/dL (28.00-217.00); Microalbumin,Random Urine < 12.0 mg/L (<20 mg/L)
[2025-04-13 10:50] LABS: AST(SGOT) 36 U/L (<=31); Alanine Aminotransfer ALT/SGPT 24 U/L (<=34); Albumin, Serum 3.9 g/dL (3.4-4.8); Alkaline Phosphatase 85 U/L (35-104); Anion Gap 10 (5-15); BUN 12 mg/dL (4-19); BUN/Creat Ratio 14.2 RATIO (10-20); Calcium,Total 9.0 mg/dL (7.6-11.0); Carbon Dioxide 25.2 mmol/L (21.0-32.0); Chloride 103 mmol/L (98-108); Cholesterol 199 mg/dL (<=200); Globulin 3.4 g/dL (2.2-4.2); Glucose 104 mg/dL (70-99); Potassium 4.5 mmol/L (3.3-5.1)
== END | disposition home or self-care (01) ==
LOC: LAB 09:00
PROVIDERS: PCP Family Medicine; Referring Provider Family Medicine; Visit Provider Family Medicine
DX: E66.812 Obesity, class 2 (principal); E03.9 Hypothyroidism, unspecified; Z68.35 Body mass index [BMI] 35.0-35.9, adult; I10 Essential (primary) hypertension
CPT/HCPCS: 80053; 82043; 82465; 82570; 83036; 83718; 84439; 84443; 85025

== ENCOUNTER → 2025-05-14 | Outpatient (CLI) | payer MEDICARE, OTHER, SELFPAY ==
--- NOTE | 2025-05-14 11:50 | BI_ITS ---
EXAM: SCRN MAMM (CAD)W/MACHELLE BILAT DATE: 05/14/2025 CLINICAL HISTORY: F, Age 69 y/o , SCREENING TECHNIQUE: Procedure Code: [id number] Modality: MG Procedure: SCRN MAMM (CAD)W/MACHELLE BILAT COMPARISON: Prior exam(s) dated 12/06/2023, 08/13/2022, 05/01/2021. FINDINGS: TISSUE DENSITY: The breasts are heterogeneously dense, which may obscure small masses. The mammogram demonstrates that the patient has dense breasts. Supplemental screening with whole breast ultrasound or MRI may be considered for further evaluation. Bilateral Breast Mammographic Findings: There is a mass in the lower inner left breast at middle depth. No significant masses, calcifications or other abnormalities are identified in the right breast. BI/SCRN MAMM (CAD)W/MACHELLE BILAT IMPRESSION: The mass in the lower inner left breast at middle depth require further evaluat ion. Recommend diagnostic mammogram and ultrasound of the left breast. OVERALL FINAL ASSESSMENT BI-RADS 0: INCOMPLETE - NEED ADDITIONAL IMAGING EVALUATION. RECOMMENDATION: Additional Views obtained/call backs Additional Recommendation none A letter with findings and recommendations will be mailed to the patient. Reading Location: [id number]
== END | disposition home or self-care (01) ==
LOC: OPBI 11:49
PROVIDERS: PCP Family Medicine; Referring Provider Family Medicine; Visit Provider Family Medicine
DX: Z12.31 Encounter for screening mammogram for malignant neoplasm of breast (principal)
CPT/HCPCS: 77063; 77067

== ENCOUNTER → 2025-05-25 | Outpatient (CLI) | payer MEDICARE, OTHER, SELFPAY ==
--- NOTE | 2025-05-25 12:41 | BI_ITS ---
EXAM: DIAG MAMM W/CAD, UNILAT 05/25/2025 CLINICAL HISTORY: F, Age 69 y/o , ABN MAMM. Abnormal screening mammogram. TECHNIQUE: Procedure Code: [id number] Modality: MG Procedure: DIAG MAMM W/CAD, UNILAT.. Compression spot views in the mediolateral oblique and craniocaudad projections were obtained. Repeat 3D images were obtained as well. COMPARISON: Prior exam(s) dated May 14, 2025.. FINDINGS: TISSUE DENSITY: The breasts are heterogeneously dense, which may obscure small masses. Bilateral Breast Mammographic Findings: The previously seen nodular density in the inferior medial aspect of the left breast is not as well defined. Sonographic correlation recommended. BI/DIAG MAMM W/CAD, UNILAT IMPRESSION: Targeted sonographic correlation recommended. OVERALL FINAL ASSESSMENT BI-RADS 0: INCOMPLETE - NEED ADDITIONAL IMAGING EVALUATION. RECOMMENDATION: Ultrasound Recommended Additional Recommendation none A letter with findings and recommendations will be mailed to the patient. Reading Location: [facility]
--- NOTE | 2025-05-25 12:41 | US_ITS ---
PROCEDURE: BREAST LIMITED UNILATERAL 05/25/2025 REASON FOR EXAM: F, Age 69 y/o , ABN MAMM COMPARISON: Prior mammogram dated May 14, 2025.. TECHNIQUE: Procedure Code: [id number] Modality: US Procedure: BREAST LIMITED UNILATERAL. The medial central portion of the left breast was examined with ultrasound. FINDINGS: There is a 6 mm x 6 mm x 5 mm slightly irregular hypoechoic solid nodule at the 9 o'clock position of the breast at 4 cm from the nipple. Biopsy is recommended. US/Breast Limited Unilateral IMPRESSION: 6 mm x 6 mm x 5 mm slightly irregular hypoechoic solid nodule at the 9 o'clock position of the breast at 4 cm from the nipple. Biopsy recommended. BI-RADS 4: SUSPICIOUS RECOMMENDATION: Biopsy Recommended Reading Location: [id number]
== END | disposition home or self-care (01) ==
LOC: OPBI 12:39
PROVIDERS: PCP Family Medicine; Referring Provider Family Medicine; Visit Provider Family Medicine
DX: N63.24 Unspecified lump in the left breast, lower inner quadrant (principal)
CPT/HCPCS: 76642; 77061; 77065; G0279

== ENCOUNTER → 2025-06-14 | Outpatient (CLI) | payer MEDICARE, OTHER, SELFPAY ==
--- NOTE | 2025-06-14 12:32 | US_ITS ---
PROCEDURE: US BREAST BIOPSY 1ST LESION 06/14/2025 REASON FOR EXAM: F, Age 69 y/o , LEFT BREAST MASS Ultrasound-guided breast biopsy of the abnormality at 9 o'clock position of the left breast at 4 cm from the nipple. TECHNIQUE: Procedure Code: USBREASTBX Modality: US Procedure: US BREAST BIOPSY 1ST LESION COMPARISON: Prior exam(s) dating back to ultrasound dated May 25, 2025.. FINDINGS: MAMMOGRAM: TISSUE DENSITY: A tissue clip marker is seen in the slightly inferior medial aspect of the left breast. ULTRASOUND: Ultrasound was targeted to the 9 o'clock position of the left breast at 4 cm from the nipple.. Under direct sonographic guidance, the surgeon performed multiple biopsies of the abnormality at the 9 o'clock position of the breast at 4 cm from the nipple. US/US Breast Biopsy 1st Lesion IMPRESSION: OVERALL FINAL ASSESSMENT: BIRADS 11 WAITING PATHOLOGY RECOMMENDATION: Routine annual follow-up in 1 Year Reading Location: [facility]
--- NOTE | 2025-06-14 13:40 | BRBX_PTH ---
PATIENT: SRUTHI MCCORMACK LOC: U#:[id number] AGE/SX: 69/F ROOM: RE06/14/[address]: Dr. Yamileth Gaitan MD : 1955 BED: DIS: 06/14/2025 SPEC #: [id number] RECD: 06/14/25 13:55 STATUS: MIN REQ #: [id number] TERRIE: 06/14/25 13:[address]: Yamileth Gaitan DEPT: SURGICAL PATHOLOGY RECD BY: Kevin Galan ENTERED: 06/14/25 14:50 SP TYPE: BREAST BX OTHR DR: Dr. Colby Mazariegos MD Tissues: A - Left breast, NOS Procedures: Immunohistochemical Stains Surgery Specimen Level IV IHC Stain ADDITIONAL HEADER OPERATION: Ultrasound guided breast biopsy - left PRE-OP DIAGNOSIS: Left breast mass TISSUE SUBMITTED: A- Left breast mass 9:00, 4cm FTN MICROSCOPIC DIAGNOSIS A. Left breast mass, 9 o'clock 4CMFN, ultrasound-guided biopsy: - Invasive ductal carcinoma, Grade 1 (tubule 2, nuclear 2, mitosis 1). - At least 0.3 cm. - E-cadherin positive. - ER: positive (90-100%, strong intensity). - DC: positive (90-100%, strong intensity). - HER2 IHC: equivocal (score 2+). - HER2 FISH: pending at [facility] (an addendum report will follow). - Ki67: 20%. MICROSCOPIC DESCRIPTION Slides are reviewed. All matched controls reacted appropriately. These tests were developed and their performance characteristics determined by [facility]. They may not have been cleared or approved by the U.S. Food and Drug Administration. The FDA has determined that such clearance or approval is not necessary. The above immunohistochemical markers and/or special?stains have been reviewed by the Pathologist. GROSS DESCRIPTION A. Received in formalin labeled with the patient's name and date of . Designated as LT breast 8 passes is a 2.5 x 2.5 x 0.3 cm aggregate of griffith-pink to yellow-red soft tissue needle core fragments and clotted blood. Entirely submitted in 2 cassettes. Cold ischemic time: <1-minuteFormalin fixation time: 29 hours, 50 minutes MD 06/14/2025PT:[id number] ADDENDUM ADDENDUM ADDENDUM ADDENDUM ADDENDUM ADDENDUM ADDENDUM ADDENDUM ADDENDUM ADDENDUM ADDENDUM ADDENDUM ADDENDUM ADDENDUM ADDENDUM ADDENDUM ADDENDUM ADDENDUM ADDENDUM ADDENDUM ADDENDUM ADDENDUM ADDENDUM ADDENDUM ADDENDUM 07/01/2025 10:03 ADDENDUM 07/01/2025 10:03 ADDENDUM 07/01/2025 10:03 ADDENDUM 07/01/2025 10:03 ADDENDUM 07/01/2025 10:03 This addendum is to report the HER2 FISH result (performed at [facility]): This addendum is added to incorporate an outside pathology consultation report. The case was examined at [facility] ([id number]) and the following diagnosis was rendered. A. Left breast mass, 9o'clock, 4 CMFN, ultrasound guided biopsy: HER2 SCORE: Negative HER2 FISH REPORT: HER2 SCORE: Negative INTERPRETATION: Tumor shows a HER2/CEP17 ratio less than 2.0 and HER2 copy number less than 4.0 by FISH. Given the negative or 2+ HER2 IHC result, the HER2 status is negative (Group 5N). Internal and external controls show expected signal pattern. HER2/CEP17 RATIO: 1.2 HER2 COPY NUMBER / CELL: 2.8 Please see complete above mentioned consultation report in EMR
--- NOTE | 2025-06-14 13:52 | PCM.OPRPT ---
Operative Report (Standard) Operative Information Date of Procedure: 06/14/25 Pre-Operative Diagnosis: Left breast mass Post-Operative Diagnosis: Same Surgery/Procedure Performed: Ultrasound-guided left breast biopsy quill machine tender: No Type of Anesthesia: Local Procedure Start Time: 13:30 Procedure Stop Time: 13:45 Select all DRAINS/GRAFTS/IMPLANTS that apply: Implanted device Implanted device details: Bard dual ultraribbon clip Estimated Blood Loss: < 5 cc Specimen collected: Yes Description of specimen(s) removed: Left breast mass 9:00 4 cm from nipple Description of surgery: Procedure: Left ultrasound-guided core biopsy Indications: 69year-old female with hypoechoic nodule at 9:00 4 cm nipple in the left breast. Risk benefits were discussed the patient and she elected to proceed with ultrasound guided core biopsy with clip placement Description of procedure: Patient was brought into the ultrasound room in the left breast was marked. A timeout was completed verifying correct patient, procedure, site, specially, prior to beginning procedure. The left breast was prepped and draped in usual sterile fashion and using local anesthesia was obtained with 1% lidocaine with epi. The lesion was located with the ultrasound. Small incision was made with 11 blade to introduced the mammotome through the skin. Under ultrasound guidance multiple core samples were obtained using then 13-gauge mammotome and sent in formalin for pathology. The Bard dual ultraribbon clip was then deployed into the biopsy cavity under ultrasound guidance and a picture was taken. Upon completion procedure hemostasis was obtained and a Steri-Strip and OpSite were placed. Patient was then taken to the mammography suite for clip verification. The clip was verified. The patient tolerated the procedure well and was discharged from the breast imaging department good condition. Surgical Findings: See operative report Complications Complications: No
--- OUTSIDE RECORDS SUMMARY | 2025-06-14 19:59 | XMS RPT_ITS | CCD ---
Author Organization [facility] Care Team Providers Care Direct Marketing Analyst Name Role Phone Alyson López Unavailable [phone] Dr. Colby Mazariegos Primary Care Provider Dr. Colby Mazariegos Referring Provider [phone] JEFF Caballero Attending Provider Dr. Dameon Youssef Attending Provider Dr. Colby Mazariegos MD Primary Care Provider RITA MCCOY Attending Provider [phone] RITA MCCOY Referring Provider [phone] Colby Mazariegos Referring Unavailable Yair, Colby Primary Care Unavailable Colby Mazariegos Attending Unavailable Yair, Colby Primary Care Unavailable Yair, Colby Attending Unavailable Mazariegos, Colby Referring Unavailable Yair, Colby Primary Care Unavailable LEA SUMMERS Attending Unavailable LEA SUMMERS Referring Unavailable Yair, Colby Referring Unavailable Yair, Colby Primary Care Unavailable Colby Mazariegos Attending Unavailable Mazariegos, Colby Primary Care Unavailable Berry Bella Attending Unavailable Yair Colby Referring Unavailable Allergies Allergy Classification Reported Allergen(s) Allergy Type Date of Onset Reaction(s) Facility (1 source) Sulfonamides (Antibiotic) drug allergy 4 [facility] Work Phone: (9 sources) Sulfonamides (Antibiotic); Translations: [Sulfa (Sulfonamide Antibiotics)] Allergy to substance 2 Rash [facility] (1 source) Albuterol Drug Allergy 4 Vomiting [facility] (1 source) Albuterol Drug Allergy 5 [facility] Repository Medications Current Medications Medication Drug [...] tablet Discontinued 1 {tbl} PO Q12H 20 10 July 25, 2023 1:00am August 03, 2023 1:00am August 04, 2023 1:04am calcium (1 source) Phosphate Binder, Calcium Start: 02-22-2017 CALCIUM 500 + D TABS CALCIUM CARBONATE-VITAMIN D TABS [id number] Alyson López coenzyme q10 100 mg oral wafer (1 source) Start: 02-22-2017 COQ10 100 MG CAPS COENZYME Q10 [id number] Alyson López meloxicam 15 mg oral tablet [...] left knee] Onset: 02-22-2017 02-22-2017 Chronic Other circulatory disease (2 sources) Low blood pressure; Translations: [Hypotension, unspecified] 07-04-2023 Episodic Other non-traumatic joint disorders (1 source) Effusion, left knee; Translations: [Effusion of joint, lower leg] Episodic Other screening for suspected conditions (not mental disorders or infectious disease) (2 sources) Encounter for screening mammogram for malignant neoplasm of breast; Translations: [Encounter for screening for osteoporosis] Onset: 09-28-2024 Episodic Superficial injury; contusion (8 sources) Superficial foreign body of unspecified finger, initial encounter; Translations: [Foreign body in skin of finger of left hand] 02-10-2022 Episodic Unclassified (8 sources) Age AND/OR growth finding; Translations: [65 years of age or older] 03-17-2021 Unclassified (1 source) Obesity, class 2; Translations: [Obesity, class 2] Onset: 04-19-2025 Viral infection (8 sources) Disease caused by 2019-nCoV; Translations: [COVID-19] 03-17-2021 Episodic Past or Other Problems Problem Classification Problem Date Documented Da te Episodic/Chronic Joint disorders and dislocations; trauma-related (1 source) Tear of medial meniscus of knee; Translations: [Other tear of medial meniscus, current injury, right knee] Onset: 05-04-2014 05-04-2014 Episodic Other and unspecified benign neoplasm (1 source) Melanocytic nevi, unspecified; Translations: [Melanocytic nevi, unspecified] Onset: 07-27-2024 Episodic Other non-traumatic joint disorders (2 sources) Knee joint effusion; Translations: [Knee pain] Onset: 05-04-2014 05-04-2014 Episodic Other upper respiratory infections (2 sources) Acute sinusitis; Translations: [Acute sinusitis, unspecified] Onset: 10-02-2024 07-25-2023 Episodic Results Test Name Value Interpretation Reference Range Facility CBC W/Diff, Automatedon 03-25 Absolute Lymph 1.68 X10 3/uL Normal 0.83-4.51 [facility] Comment on above: Order Comment: Order Date: 04/09/25 Order Info: 0184-1 - CBCD Performed By: #### L 501.6400, L100.0100, L501.4900, L501.9985, L501.9520, L500.4050, L506.0400 #### [facility] [address] [facility], [address] Absolute Neut 3.8 X10 3/uL Normal 2.0-7.7 [facility] Comment on above: Order Comment: Order Date: 04/09/25 Order Info: 0184-1 - CBCD Performed By: #### L 501.6400, L100.0100, L501.4900, L501.9985, L501.9520, L500.4050, L506.0400 #### [facility] [address] [facility], [address] Basophils/100 WBC (Bld) 0.5 % Normal 0-1 [facility] Comment on above: Order Comment: Order Date: 04/09/25 Order Info: 0184-1 - CBCD Performed By: #### L 501.6400, L100.0100, L501.4900, L501.9985, L501.9520, L500.4050, L506.0400 #### [facility] [address] [place], [address] Eosinophils/100 WBC (Bld) 2.2 % Normal 0-5 [facility] Comment on above: Order Comment: Order Date: 04/09/25 Order Info: 0184-1 - CBCD Performed By: #### L 501.6400, L100.0100, L501.4900, L501.9985, L501.9520, L500.4050, L506.0400 #### [facility] [address] [place], [address] Erythrocyte distribution width (RBC) [Ratio] 12.6 % Normal 11.6-14.6 [facility] Comment on above: Order Comment: Order Date: 04/09/25 Order Info: 0184-1 - CBCD Performed By: #### L 501.6400, L100.0100, L501.4900, L501.9985, L501.9520, L500.4050, L506.0400 #### [facility] [address] [place], [address] Hematocrit (Bld) [Volume fraction] 39.7 % Normal 37-47 [facility] Comment on above: Order Comment: Order Date: 04/09/25 Order Info: 0184-1 - CBCD Performed By: #### L 501.6400, L100.0100, L501.4900, L501.9985, L501.9520, L500.4050, L506.0400 #### [facility] [address] [place], [address] Hemoglobin (Bld) [Mass/Vol] 13.6 g/dL Normal 12.0-15.0 [facility] Comment on above: Order Comment: Order Date: 04/09/25 Order Info: 0184-1 - CBCD Performed By: #### L 501.6400, L100.0100, L501.4900, L501.9985, L501.9520, L500.4050, L506.0400 #### [facility] [address] [place], [address] IG% 0.300 Normal 0.0-0.9 [facility] Comment on above: Order Comment: Order Date: 04/09/25 Order Info: 0184-1 - CBCD Result Comment: IG% - Immature Granulocytes (promyelocytes, myelocytes and metamyelocytes) > 1% indicates that a LEFT SHIFT is Present. Performed By: #### L 501.6400, L100.0100, L501.4900, L501.9985, L501.9520, L500.4050, L506.0400 #### [facility] [address] [facility], [address] Lymphocytes/100 WBC (Bld) 26.3 % Normal 19-41 [facility] Comment on above: Order Comment: Order Date: 04/09/25 Order Info: 0184-1 - CBCD Performed By: #### L 501.6400, L100.0100, L501.4900, L501.9985, L501.9520, L500.4050, L506.0400 #### [facility] [address] [place], [address] MCH (RBC) [Entitic mass] 30.1 pg Normal 27.0-32.0 [facility] Comment on above: Order Comment: Order Date: 04/09/25 Order Info: 0184-1 - CBCD Performed By: #### L 501.6400, L100.0100, L501.4900, L501.9985, L501.9520, L500.4050, L506.0400 #### [facility] [address] [place], [address] MCHC (RBC) [Mass/Vol] 34.3 g/dL Normal 32-36 [facility] Comment on above: Order Comment: Order Date: 04/09/25 Order Info: 0184-1 - CBCD Performed By: #### L 501.6400, L100.0100, L501.4900, L501.9985, L501.9520, L500.4050, L506.0400 #### [facility] [address] [place], [address] MCV (RBC) [Entitic vol] 87.8 fL Normal 81-99 [facility] Comment on above: Order Comment: Order Date: 04/09/25 Order Info: 0184-1 - CBCD Performed By: #### L 501.6400, L100.0100, L501.4900, L501.9985, L501.9520, L500.4050, L506.0400 #### [facility] [address] [place], [address] Monocytes/100 WBC (Bld) 11.4 % High 0-10 [facility] Comment on above: Order Comment: Order Date: 04/09/25 Order Info: 0184-1 - CBCD Performed By: #### L 501.6400, L100.0100, L501.4900, L501.9985, L501.9520, L500.4050, L506.0400 #### [facility] [address] [place], [address] Neutrophils/100 WBC (Bld) 59.3 % Normal 47-70 [facility] Comment on above: Order Comment: Order Date: 04/09/25 Order Info: 0184-1 - CBCD Performed By: #### L 501.6400, L100.0100, L501.4900, L501.9985, L501.9520, L500.4050, L506.0400 #### [facility] [address] [place], [address] Nucleated RBC (Bld) [#/Vol] 0 10*3/uL Normal 0-5 [facility] Comment on above: Order Comment: Order Date: 04/09/25 Order Info: 0184-1 - CBCD Performed By: #### L 501.6400, L100.0100, L501.4900, L501.9985, L501.9520, L500.4050, L506.0400 #### [facility] [address] [place], [address] Platelet mean volume (Bld) [Entitic vol] 10.9 fL Normal 6.2-12.0 [facility] Comment on above: Order Comment: Order Date: 04/09/25 Order Info: 0184-1 - CBCD Performed By: #### L 501.6400, L100.0100, L501.4900, L501.9985, L501.9520, L500.4050, L506.0400 #### [facility] [address] [place], [place], [address] (277) Platelets (Bld) [#/Vol] 264 10*3/uL Normal 150-450 [facility] Comment on above: Order Comment: Order Date: 04/09/25 Order Info: 0184-1 - CBCD Performed By: #### L 501.6400, L100.0100, L501.4900, L501.9985, L501.9520, L500.4050, L506.0400 #### [facility] [address] [place], [address] RBC (Bld) [#/Vol] 4.52 10*6/uL Normal 4.2-5.4 [facility] Comment on above: Order Comment: Order Date: 04/09/25 Order Info: 0184-1 - CBCD Performed By: #### L 501.6400, L100.0100, L501.4900, L501.9985, L501.9520, L500.4050, L506.0400 #### [facility] [address] [place], [place], [address] RDW SD 40.3 fl Normal 35.1-43.9 [facility] Comment on above: Order Comment: Order Date: 04/09/25 Order Info: 0184-1 - CBCD Performed By: #### L 501.6400, L100.0100, L501.4900, L501.9985, L501.9520, L500.4050, L506.0400 #### [facility] [address] [place], [place], [address] WBC (Bld) [#/Vol] 6.4 10*3/uL Normal 4.4-11.0 [facility] Comment on above: Order Comment: Order Date: 04/09/25 Order Info: 0184-1 - CBCD Performed By: #### L 501.6400, L100.0100, L501.4900, L501.9985, L501.9520, L500.4050, L506.0400 #### [facility] [address] [place], [place], [address] Cholesterolon 04-13-2025 Cholesterol [Mass/Vol] 199 mg/dL Normal <=200 [facility] Comment on above: Order Comment: Order Date: 04/09/25 Order Info: 0786-1 - CMP Order Info: 3-3 - CHOL Order Info: 5-9 - HDL Order Info: 3016-3 - TSH Order Info: 3024-7 - T4F Result Comment: Chol esterol level, Desirable <200 mg/dL Borderline high cholesterol 200-239 mg/dL High cholesterol >=240 mg/dL Recommendations of the NCEP Adult Treatment Panel for the following risk-cutoff thresholds for the [place] population. Performed By: #### L 501.6400, L100.0100, L501.4900, L501.9985, L501.9520, L500.4050, L506.0400 #### [facility] [address] [place], [place], [phone] Comprehensive Metabolic Prof ilon 04-13-2025 Albumin [Mass/Vol] 3.9 g/dL Normal 3.4-4.8 [facility] Comment on above: Order Comment: Order Date: 04/09/25 Order Info: 785-1 - CMP Order Info: 2092-08 - CHOL Order Info: 2085-02 - HDL Order Info: 3 - TSH Order Info: 3024-7 - T4F Performed By: #### L 501.6400, L100.0100, L501.4900, L501.9985, L501.9520, L500.4050, L506.0400 #### [facility] [address] [place], [address] Albumin/Globulin [Mass ratio] 1.1 {ratio} Normal 0.9-2.4 [facility] Comment on above: Order Comment: Order Date: 04/09/25 Order Info: 785-06 - CMP Order Info: 2092-08 - CHOL Order Info: 2085-02 - HDL Order Info: 3015-08 - TSH Order Info: 3024-7 - T4F Performed By: #### L 501.6400, L100.0100, L501.4900, L501.9985, L501.9520, L500.4050, L506.0400 #### [facility] [address] [place], [address] ALK PHOS 85 U/L Normal 35-104 [facility] Comment on above: Order Comment: Order Date: 04/09/25 Order Info: 785-06 - CMP Order Info: 2092-08 - CHOL Order Info: 2085-02 - HDL Order Info: 3 - TSH Order Info: 3024-7 - T4F Performed By: #### L 501.6400, L100.0100, L501.4900, L501.9985, L501.9520, L500.4050, L506.0400 #### [facility] [address] [place], [address] ALT [Catalytic activity/Vol] 24 U/L Normal <=34 [facility] Comment on above: Order Comment: Order Date: 04/09/25 Order Info: 785-06 - CMP Order Info: 2092-08 - CHOL Order Info: 2085-02 HDL Order Info: 3015-08 - TSH Order Info: 7 - T4F Result Comment: Hemo lysis present, Results??could be affected. ?? Performed By: #### L 501.6400, L100.0100, L501.4900, L501.9985, L501.9520, L500.4050, L506.0400 #### [facility] [address] [place], [place], [phone] AST [Catalytic activity/Vol] 36 U/L High <=31 [facility] Comment on above: Order Comment: Order Date: 04/09/25 Order Info: 785-06 - CMP Order Info: 2092-08 - CHOL Order Info: 2085-02 - HDL Order Info: 3015-08 - TSH Order Info: 3023-12 - T4F Result Comment: Hemo lysis present, Results??could be affected. ?? Performed By: #### L 501.6400, L100.0100, L501.4900, L501.9985, L501.9520, L500.4050, L506.0400 #### [facility] [address] [place], [place], [address] Bilirubin [Mass/Vol] 0.65 mg/dL Normal 0.00-1.30 [facility] Comment on above: Order Comment: Order Date: 04/09/25 Order Info: 785-06 - CMP Order Info: 2092-08 - CHOL Order Info: 2085-02 HDL Order Info: 3015-08 - TSH Order Info: 3023-12 - T4F Performed By: #### L 501.6400, L100.0100, L501.4900, L501.9985, L501.9520, L500.4050, L506.0400 #### [facility] [address] [place], [place], [phone] (853) BUN/CRE 14.2 RATIO Normal 10-20 [facility] Comment on above: Order Comment: Order Date: 04/09/25 Order Info: 785-1 - CMP Order Info: 2092-08 - CHOL Order Info: 2085-02 - HDL Order Info: 3 - TSH Order Info: 3024-7 - T4F Performed By: #### L 501.6400, L100.0100, L501.4900, L501.9985, L501.9520, L500.4050, L506.0400 #### [facility] [address] [place], [address] Calcium [Mass/Vol] 9.0 mg/dL Normal 7.6-11.0 [facility] Comment on above: Order Comment: Order Date: 04/09/25 Order Info: 785-1 - CMP Order Info: 2092-08 - CHOL Order Info: 2085-02 - HDL Order Info: 3 - TSH Order Info: 3024-7 - T4F Performed By: #### L 501.6400, L100.0100, L501.4900, L501.9985, L501.9520, L500.4050, L506.0400 #### [facility] [address] [place], [address] Chloride [Moles/Vol] 103 mmol/L Normal 98-108 [facility] Comment on above: Order Comment: Order Date: 04/09/25 Order Info: 785-06 - CMP Order Info: 2092-08 - CHOL Order Info: 2085-02 - HDL Order Info: 3015-3 - TSH Order Info: 3024-7 - T4F Performed By: #### L 501.6400, L100.0100, L501.4900, L501.9985, L501.9520, L500.4050, L506.0400 #### [facility] [address] [place], [address] CO2 [Moles/Vol] 25.2 mmol/L Normal 21.0-32.0 [facility] Comment on above: Order Comment: Order Date: 04/09/25 Order Info: 785-06 - CMP Order Info: 2092-08 - CHOL Order Info: 2085-02 - HDL Order Info: 3 - TSH Order Info: 3023-7 - T4F Performed By: #### L 501.6400, L100.0100, L501.4900, L501.9985, L501.9520, L500.4050, L506.0400 #### [facility] [address] [place], [place], [address] Creatinine [Mass/Vol] 0.87 mg/dL Normal 0.70-1.20 [facility] Comment on above: Order Comment: Order Date: 04/09/25 Order Info: 785-06 - CMP Order Info: 2092-08 - CHOL Order Info: 2085-02 - HDL Order Info: 3015-08 - TSH Order Info: 3023-7 - T4F Performed By: #### L 501.6400, L100.0100, L501.4900, L501.9985, L501.9520, L500.4050, L506.0400 #### [facility] [address] [place], [place], [address] GAP 10 Normal 5-15 [facility] Comment on above: Order Comment: Order Date: 04/09/25 Order Info: 785-06 - CMP Order Info: 2092-08 - CHOL Order Info: 2085-02 - HDL Order Info: 3 - TSH Order Info: 3024-7 - T4F Performed By: #### L 501.6400, L100.0100, L501.4900, L501.9985, L501.9520, L500.4050, L506.0400 #### [facility] [address] [place], [place], [address] GFR/1.73 sq M.predicted among non-blacks MDRD (S/P/Bld) [Vol rate/Area] 72 mL/min/{1.73_m2} Normal >60 [facility] Comment on above: Order Comment: Order Date: 04/09/25 Order Info: 785-1 - CMP Order Info: 2092-08 - CHOL Order Info: 2085-02 - HDL Order Info: 3015-08 - TSH Order Info: 7 - T4F Result Comment: mL/m in/1.73m2 CKD-EPI Creatinine Equation (2020) Performed By: #### L 501.6400, L100.0100, L501.4900, L501.9985, L501.9520, L500.4050, L506.0400 #### [facility] [address] [place], [address] Globulin (S) [Mass/Vol] 3.4 g/dL Normal 2.2-4.2 [facility] Comment on above: Order Comment: Order Date: 04/09/25 Order Info: 785-06 - CMP Order Info: 2092-08 - CHOL Order Info: 2085-02 - HDL Order Info: 3015-08 - TSH Order Info: 3023-12 - T4F Performed By: #### L 501.6400, L100.0100, L501.4900, L501.9985, L501.9520, L500.4050, L506.0400 #### [facility] [address] [place], [address] Glucose [Mass/Vol] 104 mg/dL High 70-99 [facility] Comment on above: Order Comment: Order Date: 04/09/25 Order Info: 785-06 - CMP Order Info: 2092-08 - CHOL Order Info: 2085-02 - HDL Order Info: 3015-08 - TSH Order Info: 7 - T4F Performed By: #### L 501.6400, L100.0100, L501.4900, L501.9985, L501.9520, L500.4050, L506.0400 #### [facility] [address] [place], [address] Potassium [Moles/Vol] 4.5 mmol/L Normal 3.3-5.1 [facility] Comment on above: Order Comment: Order Date: 04/09/25 Order Info: 785- - CMP Order Info: 2092-08 - CHOL Order Info: 2085-02 - HDL Order Info: 3015-08 - TSH Order Info: 302-7 - T4F Result Comment: Hemo lysis present, Results??could be affected. ?? Performed By: #### L 501.6400, L100.0100, L501.4900, L501.9985, L501.9520, L500.4050, L506.0400 #### [facility] [address] [place], [address] Sodium [Moles/Vol] 138 mmol/L Normal 133-145 [facility] Comment on above: Order Comment: Order Date: 04/09/25 Order Info: 785-06 - CMP Order Info: 2092-08 - CHOL Order Info: 2085-02 - HDL Order Info: 3015-08 - TSH Order Info: 7 - T4F Performed By: #### L 501.6400, L100.0100, L501.4900, L501.9985, L501.9520, L500.4050, L506.0400 #### [facility] [address] [place], [place], [phone] T PROT 7.3 g/dL Normal 5.9-8.4 [facility] Comment on above: Order Comment: Order Date: 04/09/25 Order Info: 785-06 - CMP Order Info: 2092-08 - CHOL Order Info: 2085-02 - HDL Order Info: 3015-08 - TSH Order Info: 3027 - T4F Performed By: #### L 501.6400, L100.0100, L501.4900, L501.9985, L501.9520, L500.4050, L506.0400 #### [facility] [address] [place], [place], [phone] (702) Urea nitrogen [Mass/Vol] 12 mg/dL Normal 4-19 [facility] Comment on above: Order Comment: Order Date: 04/09/25 Order Info: 0786 - CMP Order Info: 2092-08 - CHOL Order Info: 2085-02 - HDL Order Info: 3015-08 - TSH Order Info: 3023-12 - T4F Performed By: #### L 501.6400, L100.0100, L501.4900, L501.9985, L501.9520, L500.4050, L506.0400 #### [facility] [address] [place], [place], [phone] Hemoglobin A1con 04-13-2025 HbA1c (Bld) [Mass fraction] 5.9 % High <=5.6 [facility] Comment on above: Order Comment: Order Date: 04/09/25 Order Info: 4548-4 - A1C Result Comment: Norm al < 5.7 % Prediabetic 5.7 - 6.4 % Diabetic >or= 6.5 % Please note range changes. Performed By: #### L 501.6400, L100.0100, L501.4900, L501.9985, L501.9520, L500.4050, L506.0400 #### [facility] [address] [place], [place], [address] High Density Lipoproteinon 1 Cholesterol in HDL [Mass/Vol] 57 mg/dL Normal [facility] Comment on above: Order Comment: Order Date: 04/09/25 Order Info: 0786 - CMP Order Info: 2092-08 - CHOL Order Info: 2085-02 - HDL Order Info: 3015-08 - TSH Order Info: 3023-12 - T4F Result Comment: Khadijah onal Cholesterol Education Program (NCEP) guidelines: <40 mg/dL: Low HDL-cholesterol (major risk factor for CHD) >= 60 mg/dL: High HDL-cholesterol (negative risk factor for CHD) HDL-cholesterol is affected by a number of factors, e.g. smoking, exercise, hormones, sex and age. Performed By: #### L 501.6400, L100.0100, L501.4900, L501.9985, L501.9520, L500.4050, L506.0400 #### [facility] [address] [place], [address] Microalb:Creat Ratio,Random URon 04-13-2025 Creatinine [Mass/Vol] 96.10 mg/dL Normal 28.00-217.00 [facility] Comment on above: Order Comment: Order Date: 04/09/25 Order Info: 68418-5 - MIALB Performed By: #### L 502.0250 #### [facility] [address] [place], [address] MALB:CREAT UNABLE TO CALCULATE Normal <30 mg/g CRE [facility] Comment on above: Order Comment: Order Date: 04/09/25 Order Info: 66458-9 - MIALB Performed By: #### L 502.0250 #### [facility] [address] [place], [address] MICROALBUMIN,UR < 12.0 Normal <20 mg/L [facility] Comment on above: Order Comment: Order Date: 04/09/25 Order Info: 33481-3 - MIALB Performed By: #### L 502.0250 #### [facility] [address] [place], [address] T4 Free Directon 04-13-2025 T4 FREE DIRECT 1.20 ng/dL Normal 0.76-1.46 [facility] Comment on above: Order Comment: Order Date: 04/09/25Order Info: 0786-1 - CMPOrder Info: 2092-08 - CHOLOrder Info: 2085-02 - HDLOrder Info: 3016-3 - TSHOrder Info: 1654-7 - T4F Performed By: #### P VIM. #### [facility] [address] [place], [address] Thyroid Stim Hormone (TSH)on 10-21-2025 TSH 4.470 uIU/mL High 0.300-4.200 [facility] Comment on above: Order Comment: Order Date: 04/09/25Order Info: 0786-1 - CMPOrder Info: 2092-08 - CHOLOrder Info: 2085-02 - HDLOrder Info: 6-3 - TSHOrder Info: 3024-7 - T4F Performed By: #### P VIM. #### [facility] [address] [place], [address] Urgent Care Visit Reporton 0 10-02-2024 Urgent Care Visit Report [facility] [address], [address] [place], [place] [address] OFFICE VISIT Date of Service: 10/02/24 MR#: [id number] Acct: [id number] Name: SRUTHI MCCORMACK JOSE Rep #: [id number] : 1955 Provider: JEFF Cruz Age/Sex: 69/F Location: [facility] Status: Signed Intake Vital Signs 07/25/23 11:23 10/02/24 11:22 Height 5 ft 1 in BP 132/82 H Blood Pressure Location Rt brachial Position Sitting Respiration 16 Pulse 58 L Pulse Source NIBP Temp 98.1 F Temp Source Oral Pulse Oximetry (%) 95 Oxygen Delivery Method room air Intake Visit Reasons: R EAR PAIN Chief Complaint: right ear pain into jaw Care Management Associate Required: No Is patient in pain?: Yes [...] cough, AI[place], BA. concern for ear infection PFSH Medical History HTN (hypertension) Social History (Updated 07/04/23 @ 14:[address] Troy Botello MD) household members: spouse and family Smoking Status: Never smoker HPI HPI Chief Complaint: right ear pain into [...] Gallegos Signature: Date (if applicable) CC: Normal [facility] Bone density reportOrdered B y: Lauro Matt on 07-01-2024 Study report Skeletal system DXA [facility] [address] [place] [address] Dexa Bone Density Study MR#: [id number] Acct: [id number] Name: SRUTHI MCCORMACK JOSE Rep #: [id number] : 1955 F 68 From: Alvin Matt MD PCP: Dr. Colby Mazariegos MD Status: [facility] Study:Dexa Bone Density Study Date of Exam: 06/11/24 Exam# [id number] Ordering Dr: Sharonda Mccoy SHOT BAGGER-C -[id number] STUDY: DUAL ENERGY X-RAY ABSORPTIOMETRY / [...] MD at 15:01 EST , CC: Dr. Cloby Mazariegos MD; Rita Mccoy ~ Sales Engineer: Signed [place] [facility] Bone Density Studyon Dexa Bone Density Study [facility] Imaging Services [address] [place] [address] Dexa Bone Density Study MR#: [id number] Acct: [id number] Name: SRUTHI MCCORMACK Rep #: [id number] : [id number] F [id number] From: Lauro radford MD PCP: Dr. Colby Mazariegos MD Status: [facility] Study: Dexa Bone Density Study Date of Exam: 06/11/24 Exam# [id number] Ordering Dr: Rita Mccoy NP -[id number] STUDY: DUAL ENERGY X-RAY ABSORPTIOMETRY / [...] CC: Dr. Colby Mazariegos MD; Rita Mccoy Sales Engineer: Signed Normal [facility] Surgery Specimen Level Hunter 05-25-2024 Surgery Specimen Level IV Patient Age/Sex Location Account Attending Physician SRUTHI MCCORMACK 68/F LABSPEC [id number] Dr. Colby Mazariegos MD Specimen: [id number] Received: 05/25/24 Status: MIN Angela Num: [id number] Spec Type: Lesion Subm Dr: Dr. Colby Mazariegos MD HEADER OPERATION: Shave biopsy PRE-OP DIAGNOSIS: Atypical nevus TISSUE SUBMITTED: Right upper back MICROSCOPIC DIAGNOSIS Skin lesion of right upper back, shave biopsy: Consistent with solar lentigo. AM. 05/27/2024 COMMENT Immunohistochemistr y ([id number]) supports the above diagnosis. MICROSCOPIC DESCRIPTION Slides are reviewed. GROSS DESCRIPTION Received is one container labeled with the patient's name and not further designated. The specimen consists of a light griffith shave biopsy of skin measuring 0.7 x 0.5 x 0.2cm. The specimen is inked, serially sectioned and totally submitted in one cassette. AM. 05/26/2024 TC:5 CPT:86775 Patient Age/Sex Location Account Attending Physician SRUTHI MCCORMACK 68/F LABSPEC [id number] Dr. Colby Mazariegos MD Signed (signatur e on file) Dr. Avery Saravia DO 05/28/24 1019 Normal [facility] Comment on above: Performed By: #### P PATI #### [facility] [address] [place], [address] Vimentin (add)on 05-25-2024 Vimentin (add) Patient Age/Sex Location Account Attending Physician SRUTHI MCCORMACK 68/F LABSPEC [id number] Dr. Colby Mazariegos MD Specimen: [id number] Received: 05/27/24 Status: MIN Angela Num: [id number] Spec Type: IMMUNO Subm Dr: Dr. Colby Mazariegos MD PHYSICIAN INSTITUTION [address] [address] SPECIMEN INFORMATION: Tissue Source: Right upper back Clinical Info: Atypical nevus Specimen Number: [id number] CPT code: 08128,69768u4 METHODOLOGY: Deparaffinized sections of prefer/formalin-fix ed tissue [...] developed and their performance characteristics determined by [facility]. They may not have been cleared or approved by the U.S. Food and Drug Administration. The FDA has determined that such clearance or approval is not necessary. The above immunohistochemical /dualISH markers are ordered and reviewed by the Pathologist. INTERPRETATION: Skin lesion of back, shave biopsy: No evidence of malignancy. AMHunter 05/28/2024 Signed (signatur e on file) Dr. Avery Saravia, 05/28/24 1050 Normal [facility] Comment on above: Performed By: #### P VIM. #### [facility] [address] [place] [address], [id number] Absolute lymphocyte countOrd ered By: ED PROVIDER on 07-04-2023 Lymphocytes Auto (Unsp spec) [#/Vol] 0.87 10*3/uL 0.83-4.51 [facility] Basophil percentageOrdered B y: ED PROVIDER on 07-04-2023 Basophils/100 WBC (Bld) 0.5 % 0-1 [facility] Chloride [Moles/Vol] 101 mmol/L 98-107 [facility] Eosinophils/100 WBC (Bld) 1.2 % 0-5 [facility] Glucose [Mass/Vol] 103 mg/dL 74-106 [facility] Comment on above: Fasting Glucose resu lt from 100 to 125 mg/dL suggests IMPAIRED HOMEOSTASIS per A.D.A. criteria. Neutrophils (Bld) [#/Vol] 4.8 10*3/uL 2.0-7.7 [facility] Neutrophils/100 WBC (Bld) 72.5 % 47-70 [facility] Potassium [Moles/Vol] 3.6 mmol/L 3.5-5.1 [facility] Sodium [Moles/Vol] 134 mmol/L 136-145 [facility] WBC (Bld) [#/Vol] 6.6 10*3/uL 4.4-11.0 [facility] Blood erythrocytes count (nu mber/volume)Ordered By: ED PROVIDER on 07-04-2023 RBC (Bld) [#/Vol] 4.55 10*6/uL 4.2-5.4 [facility] Blood hemoglobin measurement (mass/volume)Ordered By: ED PROVIDER on 07-04-2023 Hemoglobin (Bld) [Mass/Vol] 13.5 g/dL 12.0-15.0 [facility] Blood lymphocytes/100 leukoc ytesOrdered By: ED PROVIDER on 07-04-2023 Lymphocytes/100 WBC (Bld) 13.3 % 19-41 [facility] Blood monocytes/100 leukocyt esOrdered By: ED PROVIDER on 07-04-2023 Monocytes/100 WBC (Bld) 12.2 % 0-10 [facility] Blood platelet mean volumeOr dered By: ED PROVIDER on 07-04-2023 Platelet mean volume (Bld) [Entitic vol] 10.8 fL 6.2-12.0 [facility] Determination of erythrocyte mean corpuscular volume (MCV)Ordered By: ED PROVIDER on 07-04-2023 MCV (RBC) [Entitic vol] 87.5 fL 81-99 [facility] Hematocrit Auto (Bld) [Volum e fraction]Ordered By: ED PROVIDER on 07-04-2023 Hematocrit (Bld) [Volume fraction] 39.8 % 37-47 [facility] - Chemistry and C hemistry - challengeOrdered By: ED PROVIDER on 07-04-2023 CO2 [Moles/Vol] 23.0 mmol/L 21.0-32.0 [facility] Urea nitrogen/Creatinine [Mass ratio] 16.9 mg/mg 10-20 [facility] - Hematology and Cell countsOrdered By: ED PROVIDER on 07-04-2023 Erythrocyte distribution width (RBC) [Entitic vol] 39.9 fL 35.1-43.9 [facility] Erythrocyte distribution width (RBC) [Ratio] 12.5 % 11.6-14.6 [facility] Immature granulocytes/100 WBC (Bld) 0.300 % 0.0-0.9 [facility] Comment on above: IG% - Immature Granu locytes (promyelocytes, myelocytes and metamyelocytes) > 1% indicates that a LEFT SHIFT is Present. MCH (RBC) [Entitic mass] 29.7 pg 27.0-32.0 [facility] Nucleated RBC/100 WBC (Bld) [Ratio] 0 % 0-5 [facility] MCHC Auto (RBC) [Mass/Vol]Or dered By: ED PROVIDER on 07-04-2023 MCHC (RBC) [Mass/Vol] 33.9 g/dL 32-36 [facility] No Panel InformationOrdered By: ED PROVIDER on 07-04-2023 Estimated Creatinine Clearance Calc 68.42 ml/min [facility] Estimated GFR (MDRD) Amer 96 mL/min >60 [facility] Comment on above: GFR Calc Estimated GFR (MDRD) Non-Af Amer 80 mL/min >60 [facility] Comment on above: Non- GFR Calc Troponin I High Sensitivity 7 pg/mL 3.0-54.0 [facility] Comment on above: Please Note: New Ernestina t Units and Gender Specific Reference Ranges. For more information see Policy Stat Procedure [place] High Sensitivity Troponin (TNIH) and attachments. Platelets bldOrdered By: ED PROVIDER on 07-04-2023 Platelets (Bld) [#/Vol] 235 10*3/uL 150-450 [facility] Serum or plasma calcium sundar urement (mass/volume)Ordered By: ED PROVIDER on 07-04-2023 Calcium [Mass/Vol] 9.3 mg/dL 8.5-10.1 [facility] Serum or plasma creatinine m easurement (mass/volume)Ordered By: ED PROVIDER on 07-04-2023 Creatinine [Mass/Vol] 0.77 mg/dL 0.55-1.02 [facility] Comment on above: The validity of the calculated GFR & GFRAA in patients over 70 years has not been determined. Clinical correlation is essential. Serum or plasma urea nitroge n measurement (mass/volume)Ordered By: ED PROVIDER on 07-04-2023 Urea nitrogen [Mass/Vol] 13 mg/dL 7-18 [facility] Thin prep Papanicolaou smear with manual screeningOrdered By: ED PROVIDER on 07-04-2023 Thin prep Papanicolaou smear with manual screening 10 5-15 [facility] Basophil percentageOrdered B y: Colby Mazariegos on 05-29-2023 Chloride [Moles/Vol] 109 mmol/L 98-107 [facility] Glucose [Mass/Vol] 111 mg/dL 74-106 [facility] Comment on above: Fasting Glucose resu lt from 100 to 125 mg/dL suggests IMPAIRED HOMEOSTASIS per A.D.A. criteria. Potassium [Moles/Vol] 3.6 mmol/L 3.5-5.1 [facility] Sodium [Moles/Vol] 139 mmol/L 136-145 [facility] - Chemistry and C hemistry - challengeOrdered By: Colby Mazariegos on 05-29-2023 CO2 [Moles/Vol] 23.0 mmol/L 21.0-32.0 [facility] Free T4 [Mass/Vol] 1.00 ng/dL 0.76-1.46 [facility] Urea nitrogen/Creatinine [Mass ratio] 16.2 mg/mg 10-20 [facility] No Panel InformationOrdered By: Colby Mazariegos on 05-29-2023 Estimated GFR (MDRD) Amer 84 mL/min >60 [facility] Comment on above: GFR Calc Estimated GFR (MDRD) Non-Af Amer 69 mL/min >60 [facility] Comment on above: Non- GFR Calc Free Triiodothyronine (T3) pg/dL 2.5 pg/mL 2.18-3.98 [facility] Thyroid Stimulating Hormone (TSH) 2.84 uIU/mL 0.358-3.74 [facility] Urine Microalbumin/Creatinin e Ratio 4.9 mg/g CRE <30 [facility] Serum or plasma calcium sundar urement (mass/volume)Ordered By: Colby Mazariegos on 05-29-2023 Calcium [Mass/Vol] 8.7 mg/dL 8.5-10.1 [facility] Serum or plasma creatinine m easurement (mass/volume)Ordered By: Colby Mazariegos on 05-29-2023 Creatinine [Mass/Vol] 0.86 mg/dL 0.55-1.02 [facility] Comment on above: The validity of the calculated GFR & GFRAA in patients over 70 years has not been determined. Clinical correlation is essential. Serum or plasma urea nitroge n measurement (mass/volume)Ordered By: Colby Mazariegos on 05-29-2023 Urea nitrogen [Mass/Vol] 14 mg/dL 7-18 [facility] Thin prep Papanicolaou smear with manual screeningOrdered By: Colby Mazariegos on 05-29-2023 Thin prep Papanicolaou smear with manual screening 7 5-15 [facility] Thin prep Papanicolaou smear with manual screening 19.9 mg/L NO RANGE EST. [facility] Urine creatinine measurement (mass/volume)Ordered By: Colby Mazariegos on 05-29-2023 Creatinine (U) [Mass/Vol] 403.00 mg/dL NO RANGE EST. [facility] Absolute lymphocyte countOrd ered By: Colby Mazariegos on 01-31-2023 Lymphocytes Auto (Unsp spec) [#/Vol] 2.07 10*3/uL 0.83-4.51 [facility] Basophil percentageOrdered B y: Colby Mazariegos on 2023 Basophils/100 WBC (Bld) 0.5 % 0-1 [facility] Bilirubin [Mass/Vol] 0.40 mg/dL 0.20-1.00 [facility] Comment on above: For patients on eltr ombopag therapy, use of Dimension [place] TBIL is not recommended. Chloride [Moles/Vol] 107 mmol/L 98-107 [facility] Cholesterol [Mass/Vol] 175 mg/dL <200 [facility] Comment on above: <200 mg/dL Desirable 200-240 mg/dL Borderline >240 mg/dL High Risk Eosinophils/100 WBC (Bld) 3.7 % 0-5 [facility] Glucose [Mass/Vol] 106 mg/dL 74-106 [facility] Comment on above: Fasting Glucose resu lt from 100 to 125 mg/dL suggests IMPAIRED HOMEOSTASIS per A.D.A. criteria. Neutrophils (Bld) [#/Vol] 2.7 10*3/uL 2.0-7.7 [facility] Neutrophils/100 WBC (Bld) 48.5 % 47-70 [facility] Potassium [Moles/Vol] 4.3 mmol/L 3.5-5.1 [facility] Protein [Mass/Vol] 7.2 g/dL 6.4-8.2 [facility] Sodium [Moles/Vol] 139 mmol/L 136-145 [facility] Triglyceride [Mass/Vol] 85 mg/dL <199 [facility] Comment on above: The drugs N-Acetylcy steine and Metamizole may falsely depress this assay.Serum Triglycerides Reference Interval Normal <150 mg/dL Borderline high 150 - 199 mg/dL High 200 - 499 mg/dL Very High > or = 500 mg/dL WBC (Bld) [#/Vol] 5.6 10*3/uL 4.4-11.0 [facility] Blood erythrocytes count (nu mber/volume)Ordered By: Colby Mazariegos on 01-31-2023 RBC (Bld) [#/Vol] 4.65 10*6/uL 4.2-5.4 [facility] Blood hemoglobin measurement (mass/volume)Ordered By: Colby Mazariegos on 01-31-2023 Hemoglobin (Bld) [Mass/Vol] 13.7 g/dL 12.0-15.0 [facility] Blood lymphocytes/100 leukoc ytesOrdered By: Colby Mazariegos on 01-31-2023 Lymphocytes/100 WBC (Bld) 36.9 % 19-41 [facility] Blood monocytes/100 leukocyt esOrdered By: Colby Mazariegos on 01-31-2023 Monocytes/100 WBC (Bld) 10.0 % 0-10 [facility] Blood platelet mean volumeOr dered By: Colby Mazariegos on 01-31-2023 Platelet mean volume (Bld) [Entitic vol] 11.0 fL 6.2-12.0 [facility] Determination of erythrocyte mean corpuscular volume (MCV)Ordered By: Colby Mazariegos on 01-31-2023 MCV (RBC) [Entitic vol] 91.0 fL 81-99 [facility] Hematocrit Auto (Bld) [Volum e fraction]Ordered By: Colby Mazariegos on 01-31-2023 Hematocrit (Bld) [Volume fraction] 42.3 % 37-47 [facility] - Chemistry and C hemistry - challengeOrdered By: Colby Mazariegos on 01-31-2023 ALP [Catalytic activity/Vol] 85 U/L 45-117 [facility] ALT [Catalytic activity/Vol] 28 U/L 13-56 [facility] CO2 [Moles/Vol] 28.0 mmol/L 21.0-32.0 [facility] Free T4 [Mass/Vol] 0.93 ng/dL 0.76-1.46 [facility] Globulin (S) [Mass/Vol] 3.9 g/dL 2.2-4.2 [facility] Urea nitrogen/Creatinine [Mass ratio] 11.3 mg/mg 10-20 [facility] - Hematology and Cell countsOrdered By: Colby Mazariegos on 01-31-2023 Erythrocyte distribution width (RBC) [Entitic vol] 42.3 fL 35.1-43.9 [facility] Erythrocyte distribution width (RBC) [Ratio] 12.8 % 11.6-14.6 [facility] Immature granulocytes/100 WBC (Bld) 0.400 % 0.0-0.9 [facility] Comment on above: IG% - Immature Granu locytes (promyelocytes, myelocytes and metamyelocytes) > 1% indicates that a LEFT SHIFT is Present. MCH (RBC) [Entitic mass] 29.5 pg 27.0-32.0 [facility] Nucleated RBC/100 WBC (Bld) [Ratio] 0 % 0-5 [facility] MCHC Auto (RBC) [Mass/Vol]Or dered By: Colby Mazariegos on 01-31-2023 MCHC (RBC) [Mass/Vol] 32.4 g/dL 32-36 [facility] No Panel InformationOrdered By: Colby Mazariegos on 01-31-2023 Estimated GFR (MDRD) Amer 82 mL/min >60 [facility] Comment on above: GFR Calc Estimated GFR (MDRD) Non-Af Amer 68 mL/min >60 [facility] Comment on above: Non- GFR Calc Free Triiodothyronine (T3) pg/dL 2.5 pg/mL 2.18-3.98 [facility] Thyroid Stimulating Hormone (TSH) 5.47 uIU/mL 0.358-3.74 [facility] Platelets bldOrdered By: Carmela Mazariegos on 01-31-2023 Platelets (Bld) [#/Vol] 257 10*3/uL 150-450 [facility] Serum or plasma albumin sundar urement (mass/volume)Ordered By: Colby Mazariegos on 01-31-2023 Albumin [Mass/Vol] 3.3 g/dL 3.2-5.0 [facility] Serum or plasma albumin/glob ulin mass ratioOrdered By: Colby Mazariegos on 01-31-2023 Albumin/Globulin [Mass ratio] 0.8 {ratio} 0.9-2.4 [facility] Serum or plasma calcium sundar urement (mass/volume)Ordered By: Colby Mazariegos on 01-31-2023 Calcium [Mass/Vol] 8.6 mg/dL 8.5-10.1 [facility] Serum or plasma cholesterol in HDL measurement (mass/volume)Ordered By: Colby Mazariegos on 01-31-2023 Cholesterol in HDL [Mass/Vol] 62 mg/dL >40 [facility] Comment on above: The drugs N-Acetylcy steine and Metamizole may falsely depress this assay. Reference Range HDL <40 mg/dL Low HDL Cholesterol HDL >or= 60 mg/dL High HDL Cholesterol Serum or plasma cholesterol in VLDL measurement (mass/volume)Ordered By: Colby Mazariegos on 01-31-2023 Cholesterol in VLDL [Mass/Vol] 17 mg/dL 5-40 [facility] Serum or plasma creatinine m easurement (mass/volume)Ordered By: Colby Mazariegos on 01-31-2023 Creatinine [Mass/Vol] 0.88 mg/dL 0.55-1.02 [facility] Comment on above: The validity of the calculated GFR & GFRAA in patients over 70 years has not been determined. Clinical correlation is essential. Serum or plasma low density lipoprotein (LDL) cholesterol measurement (mass/volume)Ordered By: Colby Mazariegos on 01-31-2023 Cholesterol in LDL [Mass/Vol] 96 mg/dL 0-130 [facility] Serum or plasma urea nitroge n measurement (mass/volume)Ordered By: Colby Mazariegos on 01-31-2023 Urea nitrogen [Mass/Vol] 10 mg/dL 7-18 [facility] Thin prep Papanicolaou smear with manual screeningOrdered By: Colby Mazariegos on 01-31-2023 Thin prep Papanicolaou smear with manual screening 17 U/L 15-37 [facility] Thin prep Papanicolaou smear with manual screening 4 5-15 [facility] Absolute lymphocyte countOrd ered By: Dr. Mazariegos on 2022 Lymphocytes Auto (Unsp spec) [#/Vol] 2.09 10*3/uL 0.83-4.51 [facility] Basophil percentageOrdered B y: Dr. Mazariegos on 2022 Basophils/100 WBC (Bld) 0.7 % 0-1 [facility] Bilirubin [Mass/Vol] 0.50 mg/dL 0.20-1.00 [facility] Comment on above: For patients on eltr ombopag therapy, use of Dimension [place] TBIL is not recommended. Chloride [Moles/Vol] 107 mmol/L 98-107 [facility] Eosinophils/100 WBC (Bld) 2.3 % 0-5 [facility] Glucose [Mass/Vol] 104 mg/dL 74-106 [facility] Comment on above: Fasting Glucose resu lt from 100 to 125 mg/dL suggests IMPAIRED HOMEOSTASIS per A.D.A. criteria. Neutrophils (Bld) [#/Vol] 3.9 10*3/uL 2.0-7.7 [facility] Neutrophils/100 WBC (Bld) 57.0 % 47-70 [facility] Potassium [Moles/Vol] 3.8 mmol/L 3.5-5.1 [facility] Protein [Mass/Vol] 7.4 g/dL 6.4-8.2 [facility] Sodium [Moles/Vol] 140 mmol/L 136-145 [facility] WBC (Bld) [#/Vol] 6.9 10*3/uL 4.4-11.0 [facility] Blood erythrocytes count (nu mber/volume)Ordered By: Dr. Mazariegos on 2022 RBC (Bld) [#/Vol] 4.36 10*6/uL 4.2-5.4 [facility] Blood hemoglobin measurement (mass/volume)Ordered By: Dr. Mazariegos on 2022 Hemoglobin (Bld) [Mass/Vol] 13.3 g/dL 12.0-15.0 [facility] Blood lymphocytes/100 leukoc ytesOrdered By: Dr. Mazariegos on 2022 Lymphocytes/100 WBC (Bld) 30.5 % 19-41 [facility] Blood monocytes/100 leukocyt esOrdered By: Dr. Mazariegos on 2022 Monocytes/100 WBC (Bld) 9.2 % 0-10 [facility] Blood platelet mean volumeOr dered By: Dr. Mazariegos on 2022 Platelet mean volume (Bld) [Entitic vol] 11.8 fL 6.2-12.0 [facility] Determination of erythrocyte mean corpuscular volume (MCV)Ordered By: Dr. Mazariegos on 2022 MCV (RBC) [Entitic vol] 89.0 fL 81-99 [facility] Hematocrit Auto (Bld) [Volum e fraction]Ordered By: Dr. Mazariegos on 2022 Hematocrit (Bld) [Volume fraction] 38.8 % 37-47 [facility] INR in Blood by Coagulation assayOrdered By: Dr. Mazariegos on 2022 INR Coag (Bld) [Relative time] 1.0 {INR} [facility] - Chemistry and C hemistry - challengeOrdered By: Dr. Mazariegos on 2022 ALP [Catalytic activity/Vol] 85 U/L 45-117 [facility] ALT [Catalytic activity/Vol] 24 U/L 13-56 [facility] Amylase [Catalytic activity/Vol] 31 U/L 5-55 [facility] CO2 [Moles/Vol] 26.0 mmol/L 21.0-32.0 [facility] Free T4 [Mass/Vol] 0.90 ng/dL 0.76-1.46 [facility] Globulin (S) [Mass/Vol] 3.9 g/dL 2.2-4.2 [facility] Urea nitrogen/Creatinine [Mass ratio] 16.6 mg/mg 10-20 [facility] - CoagulationOrde red By: Dr. Mazariegos on 2022 PT Coag (PPP) [Time] 13.2 s 11.7-14.9 [facility] - Hematology and Cell countsOrdered By: Dr. Mazariegos on 2022 Erythrocyte distribution width (RBC) [Entitic vol] 41.4 fL 35.1-43.9 [facility] Erythrocyte distribution width (RBC) [Ratio] 12.6 % 11.6-14.6 [facility] Immature granulocytes/100 WBC (Bld) 0.300 % 0.0-0.9 [facility] Comment on above: IG% - Immature Granu locytes (promyelocytes, myelocytes and metamyelocytes) > 1% indicates that a LEFT SHIFT is Present. MCH (RBC) [Entitic mass] 30.5 pg 27.0-32.0 [facility] Nucleated RBC/100 WBC (Bld) [Ratio] 0 % 0-5 [facility] MCHC Auto (RBC) [Mass/Vol]Or dered By: Dr. Mazariegos on 2022 MCHC (RBC) [Mass/Vol] 34.3 g/dL 32-36 [facility] No Panel InformationOrdered By: Dr. Mazariegos on 2022 Estimated GFR (MDRD) Amer 103 mL/min >60 [facility] Comment on above: GFR Calc Estimated GFR (MDRD) Non-Af Amer 86 mL/min >60 [facility] Comment on above: Non- GFR Calc Free Triiodothyronine (T3) pg/dL 2.7 pg/mL 2.18-3.98 [facility] Thyroid Stimulating Hormone (TSH) 4.46 uIU/mL 0.358-3.74 [facility] Urine Microalbumin/Creatinin e Ratio 16.5 mg/g CRE <30 [facility] Vitamin D 25-Hydroxy 48.6 ng/mL [facility] Comment on above: Vitamin D 25(OH) Sta tus Range Deficiency <20 ng/mL (50nmol/L) Insufficiency 20 - 30 ng/mL (50 - 75 nmol/L) Sufficiency 30 - 100 ng/mL (75 - 250 nmol/L) Toxicity >100 ng/mL (>250 nmol/L) Platelets bldOrdered By: Dr. Mazariegos on 2022 Platelets (Bld) [#/Vol] 259 10*3/uL 150-450 [facility] Serum or plasma C reactive p rotein measurement (mass/volume)Ordered By: Dr. Mazariegos on 2022 CRP [Mass/Vol] 7.89 mg/L 0.0-3.0 [facility] Comment on above: C-Reactive Protein ( CRP) provides useful information for thediagnosis, therapy and monitoring of inflammatory processesand associated diseases. For the evaluation of Relative Riskfor Cardiovascular Disease, a High Sensitivity CRP (HSCRP)should be ordered. Serum or plasma albumin sundar urement (mass/volume)Ordered By: Dr. Mazariegos on 2022 Albumin [Mass/Vol] 3.5 g/dL 3.2-5.0 [facility] Serum or plasma albumin/glob ulin mass ratioOrdered By: Dr. Mazariegos on 2022 Albumin/Globulin [Mass ratio] 0.9 {ratio} 0.9-2.4 [facility] Serum or plasma calcium sundar urement (mass/volume)Ordered By: Dr. Mazariegos on 2022 Calcium [Mass/Vol] 9.1 mg/dL 8.5-10.1 [facility] Serum or plasma creatinine m easurement (mass/volume)Ordered By: Dr. Mazariegos on 02-17-2023 Creatinine [Mass/Vol] 0.72 mg/dL 0.55-1.02 [facility] Comment on above: The validity of the calculated GFR & GFRAA in patients over 70 years has not been determined. Clinical correlation is essential. Serum or plasma urea nitroge n measurement (mass/volume)Ordered By: Dr. Mazariegos on 2022 Urea nitrogen [Mass/Vol] 12 mg/dL 7-18 [facility] Thin prep Papanicolaou smear with manual screeningOrdered By: Dr. Mazariegos on 2022 Thin prep Papanicolaou smear with manual screening 20 U/L 15-37 [facility] Thin prep Papanicolaou smear with manual screening 7 5-15 [facility] Thin prep Papanicolaou smear with manual screening 29.1 mg/L NO RANGE EST. [facility] Urine creatinine measurement (mass/volume)Ordered By: Dr. Mazariegos on 2022 Creatinine (U) [Mass/Vol] 176.00 mg/dL NO RANGE EST. [facility] Absolute lymphocyte countOrd ered By: Dr. Mazariegos on 05-10-2022 Lymphocytes Auto (Unsp spec) [#/Vol] 2.12 10*3/uL 0.83-4.51 [facility] Basophil percentageOrdered B y: Dr. Mazariegos on 05-10-2022 Basophils/100 WBC (Bld) 0.2 % 0-1 [facility] Bilirubin [Mass/Vol] 0.70 mg/dL 0.20-1.00 [facility] Comment on above: For patients on eltr ombopag therapy, use of Dimension [place] TBIL is not recommended. Chloride [Moles/Vol] 102 mmol/L 98-107 [facility] Eosinophils/100 WBC (Bld) 1.2 % 0-5 [facility] Glucose [Mass/Vol] 112 mg/dL 74-106 [facility] Comment on above: Fasting Glucose resu lt from 100 to 125 mg/dL suggests IMPAIRED HOMEOSTASIS per A.D.A. criteria. Neutrophils (Bld) [#/Vol] 13.7 10*3/uL 2.0-7.7 [facility] Neutrophils/100 WBC (Bld) 79.7 % 47-70 [facility] Potassium [Moles/Vol] 4.2 mmol/L 3.5-5.1 [facility] Protein [Mass/Vol] 6.6 g/dL 6.4-8.2 [facility] Sodium [Moles/Vol] 137 mmol/L 136-145 [facility] WBC (Bld) [#/Vol] 17.2 10*3/uL 4.4-11.0 [facility] Blood erythrocytes count (nu mber/volume)Ordered By: Dr. Mazariegos on 05-10-2022 RBC (Bld) [#/Vol] 4.15 10*6/uL 4.2-5.4 [facility] Blood hemoglobin measurement (mass/volume)Ordered By: Dr. Mazariegos on 05-10-2022 Hemoglobin (Bld) [Mass/Vol] 12.7 g/dL 12.0-15.0 [facility] Blood lymphocytes/100 leukoc ytesOrdered By: Dr. Mazariegos on 05-10-2022 Lymphocytes/100 WBC (Bld) 12.3 % 19-41 [facility] Blood monocytes/100 leukocyt esOrdered By: Dr. Mazariegos on 05-10-2022 Monocytes/100 WBC (Bld) 6.1 % 0-10 [facility] Blood platelet mean volumeOr dered By: Dr. Mazariegos on 05-10-2022 Platelet mean volume (Bld) [Entitic vol] 10.1 fL 6.2-12.0 [facility] Determination of erythrocyte mean corpuscular volume (MCV)Ordered By: Dr. Mazariegos on 05-10-2022 MCV (RBC) [Entitic vol] 90.8 fL 81-99 [facility] Hematocrit Auto (Bld) [Volum e fraction]Ordered By: Dr. Mazariegos on 05-10-2022 Hematocrit (Bld) [Volume fraction] 37.7 % 37-47 [facility] Laboratory - Chemistry and C hemistry - challengeOrdered By: Dr. Mazariegos on 05-10-2022 ALP [Catalytic activity/Vol] 75 U/L 45-117 [facility] ALT [Catalytic activity/Vol] 30 U/L 13-56 [facility] CO2 [Moles/Vol] 29.0 mmol/L 21.0-32.0 [facility] Globulin (S) [Mass/Vol] 3.8 g/dL 2.2-4.2 [facility] Urea nitrogen/Creatinine [Mass ratio] 14.6 mg/mg 10-20 [facility] - Hematology and Cell countsOrdered By: Dr. Mazariegos on 05-10-2022 Erythrocyte distribution width (RBC) [Entitic vol] 44.0 fL 35.1-43.9 [facility] Erythrocyte distribution width (RBC) [Ratio] 13.3 % 11.6-14.6 [facility] Immature granulocytes/100 WBC (Bld) 0.500 % 0.0-0.9 [facility] Comment on above: IG% - Immature Granu locytes (promyelocytes, myelocytes and metamyelocytes) > 1% indicates that a LEFT SHIFT is Present. MCH (RBC) [Entitic mass] 30.6 pg 27.0-32.0 [facility] Nucleated RBC/100 WBC (Bld) [Ratio] 0 % 0-5 [facility] MCHC Auto (RBC) [Mass/Vol]Or dered By: Dr. Mazariegos on 05-10-2022 MCHC (RBC) [Mass/Vol] 33.7 g/dL 32-36 [facility] No Panel InformationOrdered By: Dr. Mazariegos on 05-10-2022 Estimated GFR (MDRD) Amer 111 mL/min >60 [facility] Comment on above: GFR Calc Estimated GFR (MDRD) Non-Af Amer 91 mL/min >60 [facility] Comment on above: Non- GFR Calc Thyroid Stimulating Hormone (TSH) 4.71 uIU/mL 0.358-3.74 [facility] Urine Microalbumin/Creatinin e Ratio 3.6 mg/g CRE <30 [facility] Platelets bldOrdered By: Dr. Mazariegos on 05-10-2022 Platelets (Bld) [#/Vol] 308 10*3/uL 150-450 [facility] Serum or plasma albumin sundar urement (mass/volume)Ordered By: Dr. Mazariegos on 05-10-2022 Albumin [Mass/Vol] 2.8 g/dL 3.2-5.0 [facility] Serum or plasma albumin/glob ulin mass ratioOrdered By: Dr. Mazariegos on 05-10-2022 Albumin/Globulin [Mass ratio] 0.7 {ratio} 0.9-2.4 [facility] Serum or plasma calcium sundar urement (mass/volume)Ordered By: Dr. Mazariegos on 05-10-2022 Calcium [Mass/Vol] 8.6 mg/dL 8.5-10.1 [facility] Serum or plasma creatinine m easurement (mass/volume)Ordered By: Dr. Mazariegos on 05-10-2022 Creatinine [Mass/Vol] 0.68 mg/dL 0.55-1.02 [facility] Comment on above: The validity of the calculated GFR & GFRAA in patients over 70 years has not been determined. Clinical correlation is essential. Serum or plasma urea nitroge n measurement (mass/volume)Ordered By: Dr. Mazariegos on 05-10-2022 Urea nitrogen [Mass/Vol] 10 mg/dL 7-18 [facility] Thin prep Papanicolaou smear with manual screeningOrdered By: Dr. Mazariegos on 05-10-2022 Thin prep Papanicolaou smear with manual screening 16 U/L 15-37 [facility] Thin prep Papanicolaou smear with manual screening 6 5-15 [facility] Thin prep Papanicolaou smear with manual screening 6.4 mg/L NO RANGE EST. [facility] Urine creatinine measurement (mass/volume)Ordered By: Dr. Mazariegos on 05-10-2022 Creatinine (U) [Mass/Vol] 175.00 mg/dL NO RANGE EST. [facility] Office Visiton 02-22-2017 Dietary management education, guidance, and counseling (procedure) yes Invalid Interpretation Code [facility] Work Phone: Documentation of current medications (procedure) Done Invalid Interpretation Code [facility] Work Phone: Tobacco use CPHS Never smoker Invalid Interpretation Code [facility] Work Phone: Lab Report: CBCDon 4 Absolute Neutrophil count 3.1 X10 3/UL Normal 2.0-7.7 [facility] Work Phone: Basophils/100 leukocytes 0.4 % Normal 0-1 [facility] Work Phone: Eosinophils/100 leukocytes 2.0 % Normal 0-5 [facility] Work Phone: Erythrocytes (RBC) 4.03 10*6/uL Low 4.2-5.4 [facility] Work Phone: Hematocrit (HCT) 36.0 % Low 37-47 [facility] Work Phone: Hemoglobin (HGB) 12.1 g/dL Normal 12.0-15.0 [facility] Work Phone: Lymphocytes/100 leukocytes 30.8 % Normal 19-41 [facility] Work Phone: MCH 30.0 pg Normal 27.0-32.0 [facility] Work Phone: MCHC 33.6 G/GL Normal 32-36 [facility] Work Phone: MCV 89.3 fL Normal 81-99 [facility] Work Phone: Monocytes/100 leukocytes 9.0 % Normal 0-10 [facility] Work Phone: Neutrophils/100 leukocytes 57.8 % Normal 47-70 [facility] Work Phone: Platelets 208 10*3/mm3 Normal 150-450 [facility] Work Phone: PMV by Cal 11.4 fL Normal 6.2-12.0 [facility] Work Phone: RDW-CA 1.67 X10 3/ul Normal 0.83-4.51 [facility] Work Phone: WBC (Leukocytes) 5.4 10*3/uL Normal 4.4-11.0 [facility] Work Phone: Microbiology: Jay 014 Culture, Anaerobic No anaerobic bacteria isolated. Invalid Interpretation Code [facility] Work Phone: Microbiology: [facility] 014 CSF culture and gram stain No organisms seen Normal [facility] Work Phone: Replaced Document: Siri crystals, body fluid Absent Normal [facility] Work Phone: Vital Signs Date Time Vital Sign Value Performing Clinician Facility 07-04-2023 14:15-0500 Diastolic blood pressure 71 mm[Hg] [facility] 07-04-2023 14:15-0500 Heart rate 69 /min [facility] 07-04-2023 14:15-0500 Respiratory rate 18 /min [facility] 07-04-2023 14:15-0500 SaO2% (BldA) [Mass fraction] 99 % [facility] 07-04-2023 14:15-0500 Systolic blood pressure 155 mm[Hg] [facility] 07-04-2023 11:31-0500 Body height 154.94 cm [facility] 07-04-2023 11:31-0500 Body mass index (BMI) [Ratio] 36.2 kg/m2 [facility] 07-04-2023 11:31-0500 Body temperature 97 [degF] [facility] 07-04-2023 11:31-0500 Body weight 87.08 kg [facility] 02-02-2022 14:05-0400 Body temperature 98.9 [degF] Dr. Colby Mazariegos Work Phone: [facility] Work Phone: 02-02-2022 14:05-0400 Diastolic blood pressure 78 mm[Hg] Dr. Colby Mazariegos Work Phone: [facility] Work Phone: 02-02-2022 14:05-0400 Heart rate 64 /min Dr. Colby Mazariegos Work Phone: [facility] Work Phone: 02-02-2022 14:05-0400 Respiratory rate 14 /min Dr. Colby Mazariegos Work Phone: [facility] Work Phone: 02-02-2022 14:05-0400 SaO2% (BldA) [Mass fraction] 99 % Dr. Colby Mazariegos Work Phone: [facility] Work Phone: 02-02-2022 14:05-0400 Systolic blood pressure 124 mm[Hg] Dr. Colby Mazariegos Work Phone: [facility] Work Phone: 02-02-2022 12:21-0400 Body height 154.[address] Colby Mazariegos Work Phone: [facility] Work Phone: 02-02-2022 12:21-0400 Body mass index (BMI) [Ratio] 36.6 kg/m2 Dr. Colby Mazariegos Work Phone: [facility] Work Phone: 02-02-2022 12:21-0400 Body weight 87.[address] Colby Mazariegos Work Phone: [facility] Work Phone: 05-18-2014 08:20-0500 BMI (Body Mass Index) 32.06 kg/m2 [facility] Work Phone: 05-18-2014 08:20-0500 Weight 82.1 kg [facility] Work Phone: 05-04-2014 09:49-0500 BP Diastolic 80 mm[Hg] [facility] Work Phone: 05-04-2014 09:49-0500 BP Systolic 125 mm[Hg] [facility] Work Phone: 05-04-2014 09:49-0500 Height 160.02 cm [facility] Work Phone: 05-04-2014 09:49-0500 Pulse (Heart Rate) 70 /min [facility] Work Phone: Encounters Encounter Date Encounter Type Care Provider Facility Start: 05-14-2025 ambulatory Colby Mazariegos Facility:[facility] Start: 04-13-2025 End: 04-13-2025 ambulatory Colby Mazariegos Facility:[facility] Start: 10-02-2024 End: 10-02-2024 ambulatory Colby Mazariegos Facility:[facility] Start: 06-11-2024 End: 06-11-[address] Colby Mazariegos MD Work Phone: [facility] Work Phone: Start: 06-11-2024 End: 06-11-[address] Colby Mazariegos MD Work Phone: -Outpatient Bone Densitometry Work Phone: Start: 06-11-2024 End: 06-11-2024 ambulatory Colyb Mazariegos Facility:[facility] Start: 05-25-2024 End: 05-25-2024 ambulatory Colby Mazariegos Facility:[facility] Start: 07-04-2023 End: 07-04-2023 Emergency department patient visit [facility]-Emergency Department Work Phone: Start: 05-29-2023 End: 05-29-2023 ambulatory [facility] Work Phone: Start: 05-29-2023 End: 05-29-2023 Patient encounter procedure [facility] Work Phone: Start: 01-31-2023 End: 01-31-2023 ambulatory [facility] Work Phone: Start: 01-31-2023 End: 01-31-2023 Patient encounter procedure [facility]-Laboratory Work Phone: Start: 08-21-2022 End: 08-21-2022 ambulatory [facility] Work Phone: Start: 08-21-2022 End: 08-21-2022 Patient encounter procedure [facility]-Outpatient Breast Imaging Start: 2022 End: 2022 ambulatory [facility] Work Phone: Start: 2022 End: 2022 Patient encounter procedure [facility]-Laboratory Start: 05-10-2022 End: 05-10-2022 ambulatory [facility] Work Phone: Start: 05-10-2022 End: 05-10-2022 Patient encounter procedure [facility]Laboratory Start: 02-02-2022 End: 02-02-2022 Emergency department patient visit Dr. Colby Mazariegos Work Phone: [facility]-Emergency Department Start: 12-12-2021 End: 12-12-[address] Colby Mazariegos Work Phone: [facility]-Outpatient Bone Densitometry Start: 11-24-2021 End: 11-24-[address] Colby Mazariegos Work Phone: [facility] Procedures Date Procedure Procedure Detail [...] Date Care Activity Detail Author Start: 07-04-2023 [facility] Start: 07-04-2023 Troponin I measurement [facility] Start: 07-04-2023 [facility] Start: 02-02-2022 Simple repair scalp/neck/ax/genit/esther nk 2.5cm/< RPR S/N/AX/GEN/TRNK 2.5CM/< [facility] Work Phone: Start: 02-22-2017 End: 02-22-2017 Appointment Appointment [facility] Work Phone: Start: 02-22-2017 End: 02-22-2017 X-ray exam, knee, 4 or more X-Ray, Knee [facility] Work Phone: Start: 08-24-2014 End: 08-24-2014 X-ray exam, knee, 4 or more X-Ray, Knee [facility] Work Phone: Start: 05-04-2014 End: 05-26-2014 *CBC with Differential *CBC with Differential [facility] Work Phone: Start: 05-04-2014 End: 05-04-2014 Bacteria identified in Body fluid by Culture *CUBF- Culture, Body Fluid [facility] Work Phone: Start: 05-04-2014 End: 05-04-2014 Crystals [type] in Body fluid by Light microscopy *DAV - Crystals, Body Fluid [facility] Work Phone: Start: 05-04-2014 End: 05-04-2014 Glucose *GLUBF - Glucose, Body Fluid [facility] Work Phone: Start: 05-04-2014 End: 05-04-2014 Microscopic observation *GS - Gram Stain [facility] Work Phone: Start: 05-04-2014 End: 05-04-2014 Mri jnt of lwr extre w/o dye MRI Joint Lower Extremity [facility] Work Phone: Start: 05-04-2014 End: 05-04-2014 Protein in fluid *PROBF - Protein, Body Fluid [facility] Work Phone: Start: 05-04-2014 End: 05-04-2014 X-ray exam, knee, 4 or more X-Ray, Knee [facility] Work Phone: Patient Education [facility] Work Phone: Patient referral [facility] Work Phone: Immunizations Immunization Date Immunization Notes Care Provider Fa silvano 02-02-2022 tetanus toxoid, redu charisse diphtheria toxoid, and acellular pertussis vaccine, adsorbed Dr. Colby Mazariegos Work Phone: [facility] Payers Date Payer Category Payer Self-pay [id number] 2024 Medicare [id number] 2024 Private Health Insurance [id number] 2012 Unknown [id number] Unknown [facility]UST DO N OT USE [id number] Unknown [id number] Unknown [id number] Unknown [id number] Unknown [id number] Unknown [id number] Social History Date Type Detail Facility Start: 02-02-2022 End: 07-04-2023 Tobacco smoking status NHIS Unknown if ever smoked [facility] Start: 1955 Sex Assigned At Female [facility] Start: 07-25-2023 Tobacco smoking stat us RIIS Never smoked tobacco (finding) [facility] Start: 09-28-2024 Sex Female (finding) [facility] Mental Status Date Assessment Result Facility 07-04-2023 Cognitive function Level Of Cons ciousness Awake;Alert;Appropriate;Follow s Commands [facility] Work Phone: Discharge summary 07-04-2023 Note Date & Type Note Facility 07-04-2023 Discharge summary Note Date/Time July 04, 2023 2:51pm [facility] Medical Records Department [address] [place] [address] Emergency Department Summary 07/04/23 MR#: [id number] Acct: [id number] Name: SRUTHI MCCORMACK Rep #:[id number] : [...] Negative for Marfan's Syndrome or Family History [facility] Medical History HTN (hypertension) Home Medications amlodipine [...] 72.5 H Lymph % (Auto) 13.3 L Dickenson % (Auto) 12.2 H Eos % (Auto) [...] acute abnormality is seen. Electronically Signed: Lauro Matt MD at 13:49 EST , Treatment and [...] your Primary Care Provider. Call [facility] ([phone]) or report to the closest Emergency Room. Call 911 if necessary. 07/04/23 1359 <Electronically signed by Troy Botello MD> Cosigner Signature (if applicable): CC: Dr. Colby Mazariegos MD ~ Signed [facility] Work Phone: Evaluation note Note Date & Type Note Facility Evaluation note Diagnosis Onset Date Effusion, left knee noneacti ve Left knee DJD noneactive [facility] Work Phone: Evaluation note Note Date & Type Note Facility Evaluation note No assessment information availa ble [facility] Work Phone: Reason for referral (narrative) Note Date & Type Note Facility Reason for referral (narrative) No reason for referral information available [facility] Work Phone: Chief Complaint and Reason [...] Complaint Admit Date SCREEN FOR OSTEOPOROSIS June 11, 024 9:29am Advance Directives No Advanced Directives Records Found Advance Directive Response Recorded Date/ Time Advance Directives No May 26, 2014 4:25pm Living Will No February 02 2 12:21pm Power of Shingle Cutter No February 02 12:21pm Advance Directive Response Recorded Date/ Time Advance Directives No May 26, 2014 3:25pm Living Will No February 02 11:21am Power of Shingle Cutter No February 02 022 11:21am Advance Directive Response Recorded Date/ Time Advance Directives No May 26, 2014 3:25pm Living Will No July 04 2:19pm Power of Shingle Cutter No July 04, 2023 2:19pm Advance Directive Response Recorded Date/ Time Living Will No July 25 12:04pm Do you have a Healthcare Power of Shingle Cutter? No July 25, 2023 12:04pm Advance Directives [...] Inactive Member Role Status Dates Dr. Colby Mazarigeos MD Primary Care Provider, Attending natalee Active Team Status: Inactive Member Role Status Dates Dr. Colby Mazariegos MD Primary Care Provider Active Dr. Troy Botello MD Emergency Provider Active Team Status: Inactive Member Role Status Dates Dr. Colby Mazariegos MD Primary Care Provider Active Start: June 11, 2024 End: June 11, 2024 NADINE VERMA Attending Provider Active Start: D 2023 End: June 11, 2024 NADINE VERMA Referring Provider Active Start: D 2023 End: June 11, 2024 INFORMATION SOURCE (unrecogn ized section and content) DATE CREATED AUTHOR 04/25/2025 [facility] FOR RECORDS PERTAINING TO PATIENTS WHO [...] BE BASED ON THE PRIMARY CLINICAL RECORDS. [facility]. provides no warranty or guarantee of the accuracy or completeness of information in this document.
== END | disposition home or self-care (01) ==
LOC: US 12:32
PROVIDERS: PCP Family Medicine; Referring Provider Surgery; Visit Provider Surgery
DX: C50.812 Malignant neoplasm of overlapping sites of left female breast (principal); Z17.0 Estrogen receptor positive status [ER+]; Z17.21 Progesterone receptor positive status
CPT/HCPCS: 19083; 88305; 88341; 88342